=== PATIENT | male | born 1985 | race American Indian/Alaskan Native ===

== ENCOUNTER 2016-07-04 10:01 | Outpatient (CLI) | payer MEDICAID | END 2016-07-04 10:02 | disposition home or self-care (01) | LOC: WOUND 10:01 | PROVIDERS: ATTEND Internal Medicine | DX: L97.312 Non-pressure chronic ulcer of right ankle with fat layer exposed (principal); L97.322 Non-pressure chronic ulcer of left ankle with fat layer exposed; I74.3 Embolism and thrombosis of arteries of the lower extremities; K21.0 Gastro-esophageal reflux disease with esophagitis; G62.9 Polyneuropathy, unspecified | CPT/HCPCS: G0277 ×2; 99183 ==

== ENCOUNTER 2016-07-06 09:55 | Outpatient (CLI) | payer MEDICAID | END 2016-07-06 09:56 | disposition home or self-care (01) | LOC: WOUND 09:55 | PROVIDERS: ATTEND Orthopaedic Surgery | DX: I74.3 Embolism and thrombosis of arteries of the lower extremities (principal); L97.312 Non-pressure chronic ulcer of right ankle with fat layer exposed; L97.322 Non-pressure chronic ulcer of left ankle with fat layer exposed; K21.9 Gastro-esophageal reflux disease without esophagitis; G62.9 Polyneuropathy, unspecified | CPT/HCPCS: G0277 ×2; 99183 ==

== ENCOUNTER 2016-07-07 09:27 | Outpatient (CLI) | payer MEDICAID ==
[2016-07-07] MEDS ORDERED: XYLOCAINE TOPICAL 4% TP ONE ×2 (09:31→09:36)
== END 2016-07-07 09:28 | disposition home or self-care (01) ==
LOC: WOUND 09:27
PROVIDERS: ATTEND Internal Medicine
DX: L97.312 Non-pressure chronic ulcer of right ankle with fat layer exposed (principal); L97.322 Non-pressure chronic ulcer of left ankle with fat layer exposed; I74.3 Embolism and thrombosis of arteries of the lower extremities; K21.9 Gastro-esophageal reflux disease without esophagitis; D57.1 Sickle-cell disease without crisis; G62.9 Polyneuropathy, unspecified
CPT/HCPCS: 11042; G0277; 99183

== ENCOUNTER 2016-07-10 10:00 | Outpatient (CLI) | payer MEDICAID | END 2016-07-10 10:01 | disposition home or self-care (01) | LOC: WOUND 10:00 | PROVIDERS: ATTEND Orthopaedic Surgery | DX: L97.312 Non-pressure chronic ulcer of right ankle with fat layer exposed (principal); L97.322 Non-pressure chronic ulcer of left ankle with fat layer exposed; K21.9 Gastro-esophageal reflux disease without esophagitis; I74.3 Embolism and thrombosis of arteries of the lower extremities; G62.9 Polyneuropathy, unspecified; D57.1 Sickle-cell disease without crisis | CPT/HCPCS: G0277 ×2; 99183 ==

== ENCOUNTER 2016-07-27 10:03 | Outpatient (CLI) | payer MEDICAID | END 2016-07-27 10:04 | disposition home or self-care (01) | LOC: WOUND 10:03 | PROVIDERS: ATTEND Orthopaedic Surgery | DX: L97.312 Non-pressure chronic ulcer of right ankle with fat layer exposed (principal); L97.322 Non-pressure chronic ulcer of left ankle with fat layer exposed; I74.3 Embolism and thrombosis of arteries of the lower extremities; D57.1 Sickle-cell disease without crisis; K21.9 Gastro-esophageal reflux disease without esophagitis; G62.9 Polyneuropathy, unspecified | CPT/HCPCS: G0277 ×2; 99183 ==

== ENCOUNTER 2016-07-28 09:02 | Outpatient (CLI) | payer MEDICAID ==
[2016-07-28] MEDS ORDERED: XYLOCAINE TOPICAL 2% TP ONE ×2 (09:07→09:35)
== END 2016-07-28 09:03 | disposition home or self-care (01) ==
LOC: WOUND 09:02
PROVIDERS: ATTEND Podiatrist
DX: L97.312 Non-pressure chronic ulcer of right ankle with fat layer exposed (principal); L97.322 Non-pressure chronic ulcer of left ankle with fat layer exposed; I74.3 Embolism and thrombosis of arteries of the lower extremities; D57.1 Sickle-cell disease without crisis; K21.9 Gastro-esophageal reflux disease without esophagitis; G62.9 Polyneuropathy, unspecified
CPT/HCPCS: 11042; G0277; 99183

== ENCOUNTER 2016-07-31 10:36 | Outpatient (CLI) | payer MEDICAID | END 2016-07-31 10:37 | disposition home or self-care (01) | LOC: WOUND 10:36 | PROVIDERS: ATTEND Internal Medicine | DX: I74.3 Embolism and thrombosis of arteries of the lower extremities (principal); L97.312 Non-pressure chronic ulcer of right ankle with fat layer exposed; L97.322 Non-pressure chronic ulcer of left ankle with fat layer exposed; D57.1 Sickle-cell disease without crisis; K21.9 Gastro-esophageal reflux disease without esophagitis | CPT/HCPCS: G0277 ×2; 82962; 99183 ==

== ENCOUNTER 2016-08-01 10:22 | Outpatient (CLI) | payer MEDICAID | END 2016-08-01 10:23 | disposition home or self-care (01) | LOC: WOUND 10:22 | PROVIDERS: ATTEND Podiatrist | DX: I74.3 Embolism and thrombosis of arteries of the lower extremities (principal); L97.312 Non-pressure chronic ulcer of right ankle with fat layer exposed; L97.322 Non-pressure chronic ulcer of left ankle with fat layer exposed; D57.1 Sickle-cell disease without crisis; K21.9 Gastro-esophageal reflux disease without esophagitis; E11.40 Type 2 diabetes mellitus with diabetic neuropathy, unspecified | CPT/HCPCS: 82962; G0277; 99183 ==

== ENCOUNTER 2016-08-02 13:35 | Outpatient (CLI) | payer MEDICAID | END 2016-08-02 13:36 | disposition home or self-care (01) | LOC: WOUND 13:35 | PROVIDERS: ATTEND Internal Medicine | DX: I74.3 Embolism and thrombosis of arteries of the lower extremities (principal); L97.312 Non-pressure chronic ulcer of right ankle with fat layer exposed; L97.322 Non-pressure chronic ulcer of left ankle with fat layer exposed; D57.1 Sickle-cell disease without crisis; K21.9 Gastro-esophageal reflux disease without esophagitis; G62.9 Polyneuropathy, unspecified | CPT/HCPCS: G0277 ×2; 99183 ==

== ENCOUNTER 2016-08-03 13:45 | Outpatient (CLI) | payer MEDICAID | END 2016-08-03 13:46 | disposition home or self-care (01) | LOC: WOUND 13:45 | PROVIDERS: ATTEND Internal Medicine | DX: L97.311 Non-pressure chronic ulcer of right ankle limited to breakdown of skin (principal); L97.321 Non-pressure chronic ulcer of left ankle limited to breakdown of skin; I74.3 Embolism and thrombosis of arteries of the lower extremities; D57.1 Sickle-cell disease without crisis; T79 Certain early complications of trauma, not elsewhere classified; K21.9 Gastro-esophageal reflux disease without esophagitis | CPT/HCPCS: G0277 ×2; 99183 ==

== ENCOUNTER 2016-08-04 13:00 | Outpatient (CLI) | payer MEDICAID | END 2016-08-04 13:01 | disposition home or self-care (01) | LOC: WOUND 13:00 | PROVIDERS: ATTEND Podiatrist | DX: L97.311 Non-pressure chronic ulcer of right ankle limited to breakdown of skin (principal); L97.321 Non-pressure chronic ulcer of left ankle limited to breakdown of skin; I74.3 Embolism and thrombosis of arteries of the lower extremities; D57.1 Sickle-cell disease without crisis; K21.9 Gastro-esophageal reflux disease without esophagitis | CPT/HCPCS: G0277 ×2; 99183 ==

== ENCOUNTER 2016-08-10 13:00 | Outpatient (CLI) | payer MEDICAID | END 2016-08-10 13:01 | disposition home or self-care (01) | LOC: WOUND 13:00 | PROVIDERS: ATTEND Internal Medicine | DX: L97.312 Non-pressure chronic ulcer of right ankle with fat layer exposed (principal); L97.322 Non-pressure chronic ulcer of left ankle with fat layer exposed; I74.3 Embolism and thrombosis of arteries of the lower extremities; K21.9 Gastro-esophageal reflux disease without esophagitis; G62.9 Polyneuropathy, unspecified; D57.1 Sickle-cell disease without crisis | CPT/HCPCS: G0277 ×2; 99183 ==

== ENCOUNTER 2016-08-11 11:28 | Outpatient (CLI) | payer MEDICAID ==
[2016-08-11] MEDS ORDERED: XYLOCAINE TOPICAL 4% TP ONE ×2 (12:26→12:35)
== END 2016-08-11 11:29 | disposition home or self-care (01) ==
LOC: WOUND 11:28
PROVIDERS: ATTEND Podiatrist
DX: L97.312 Non-pressure chronic ulcer of right ankle with fat layer exposed (principal); L97.322 Non-pressure chronic ulcer of left ankle with fat layer exposed; I74.3 Embolism and thrombosis of arteries of the lower extremities; D57.1 Sickle-cell disease without crisis; K21.9 Gastro-esophageal reflux disease without esophagitis; G62.9 Polyneuropathy, unspecified
CPT/HCPCS: 11042; G0277; 99183

== ENCOUNTER 2016-08-14 13:20 | Outpatient (CLI) | payer MEDICAID | END 2016-08-14 13:21 | disposition home or self-care (01) | LOC: WOUND 13:20 | PROVIDERS: ATTEND Internal Medicine | DX: L97.312 Non-pressure chronic ulcer of right ankle with fat layer exposed (principal); L97.322 Non-pressure chronic ulcer of left ankle with fat layer exposed; I74.3 Embolism and thrombosis of arteries of the lower extremities; D57.1 Sickle-cell disease without crisis; K21.9 Gastro-esophageal reflux disease without esophagitis; G62.9 Polyneuropathy, unspecified | CPT/HCPCS: G0277 ×2; 99183 ==

== ENCOUNTER 2016-08-15 13:41 | Outpatient (CLI) | payer MEDICAID | END 2016-08-15 13:42 | disposition home or self-care (01) | LOC: WOUND 13:41 | PROVIDERS: ATTEND Internal Medicine | DX: L97.311 Non-pressure chronic ulcer of right ankle limited to breakdown of skin (principal); L97.321 Non-pressure chronic ulcer of left ankle limited to breakdown of skin; I74.3 Embolism and thrombosis of arteries of the lower extremities; D57.1 Sickle-cell disease without crisis; K21.9 Gastro-esophageal reflux disease without esophagitis | CPT/HCPCS: 82962; G0277; 99183 ==

== ENCOUNTER 2016-08-16 13:00 | Outpatient (CLI) | payer MEDICAID | END 2016-08-16 13:01 | disposition home or self-care (01) | LOC: WOUND 13:00 | PROVIDERS: ATTEND Internal Medicine | DX: L97.312 Non-pressure chronic ulcer of right ankle with fat layer exposed (principal); L97.322 Non-pressure chronic ulcer of left ankle with fat layer exposed; I74.3 Embolism and thrombosis of arteries of the lower extremities; D57.1 Sickle-cell disease without crisis; K21.9 Gastro-esophageal reflux disease without esophagitis; G62.9 Polyneuropathy, unspecified | CPT/HCPCS: G0277 ×2; 99183 ==

== ENCOUNTER 2016-08-17 12:30 | Outpatient (CLI) | payer MEDICAID | END 2016-08-17 12:31 | disposition home or self-care (01) | LOC: WOUND 12:30 | PROVIDERS: ATTEND Nurse Practitioner | DX: L97.312 Non-pressure chronic ulcer of right ankle with fat layer exposed (principal); L97.322 Non-pressure chronic ulcer of left ankle with fat layer exposed; I74.3 Embolism and thrombosis of arteries of the lower extremities; D57.1 Sickle-cell disease without crisis; K21.9 Gastro-esophageal reflux disease without esophagitis; G62.9 Polyneuropathy, unspecified | CPT/HCPCS: G0277 ×2; 99183 ==

== ENCOUNTER 2016-08-25 09:00 | Outpatient (CLI) | payer MEDICAID ==
[2016-08-25] MEDS ORDERED: NACL 0.9% 500 ML IR ONE (09:11)
[2016-08-25] MEDS ORDERED: XYLOCAINE TOPICAL 4% TP ONE ×2 (09:11→09:24)
== END 2016-08-25 09:01 | disposition home or self-care (01) ==
LOC: WOUND 09:00
PROVIDERS: ATTEND Podiatrist
DX: L97.311 Non-pressure chronic ulcer of right ankle limited to breakdown of skin (principal); L97.321 Non-pressure chronic ulcer of left ankle limited to breakdown of skin; I74.3 Embolism and thrombosis of arteries of the lower extremities; D57.1 Sickle-cell disease without crisis; K21.9 Gastro-esophageal reflux disease without esophagitis

== ENCOUNTER 2016-09-08 09:43 | Outpatient (CLI) | payer MEDICAID ==
[2016-09-08] MEDS ORDERED: XYLOCAINE TOPICAL 4% TP ONE ×2 (10:38→12:10)
[2016-09-08] MEDS ORDERED: XYLOCAINE TOPICAL 2% TP ONE (11:12)
== END 2016-09-08 09:44 | disposition home or self-care (01) ==
LOC: WOUND 09:43
PROVIDERS: ATTEND Podiatrist
DX: L97.312 Non-pressure chronic ulcer of right ankle with fat layer exposed (principal); L97.322 Non-pressure chronic ulcer of left ankle with fat layer exposed; I74.3 Embolism and thrombosis of arteries of the lower extremities; D57.1 Sickle-cell disease without crisis; K21.9 Gastro-esophageal reflux disease without esophagitis; R26.9 Unspecified abnormalities of gait and mobility

== ENCOUNTER 2016-09-15 10:09 | Outpatient (CLI) | payer MEDICAID ==
[2016-09-15] MEDS ORDERED: XYLOCAINE TOPICAL 4% TP ONE ×2 (10:25→10:51)
== END 2016-09-15 10:10 | disposition home or self-care (01) ==
LOC: WOUND 10:09
PROVIDERS: ATTEND Podiatrist
DX: L97.312 Non-pressure chronic ulcer of right ankle with fat layer exposed (principal); L97.322 Non-pressure chronic ulcer of left ankle with fat layer exposed; I74.3 Embolism and thrombosis of arteries of the lower extremities; D57.1 Sickle-cell disease without crisis; K21.9 Gastro-esophageal reflux disease without esophagitis; G62.9 Polyneuropathy, unspecified
CPT/HCPCS: 87075; 87116

== ENCOUNTER 2016-09-22 10:21 | Outpatient (CLI) | payer MEDICAID ==
[2016-09-22] MEDS ORDERED: XYLOCAINE TOPICAL 2% TP ONE (11:06)
[2016-09-22] MEDS ORDERED: XYLOCAINE TOPICAL 4% TP ONE ×2 (11:06→15:18)
[2016-09-22] MEDS ORDERED: SANTYL TP ONE ×2 (11:54→15:18)
[2016-09-22] MEDS ORDERED: XYLOCAINE MPF 2% INFILTRATI ONE (16:00)
== END 2016-09-22 10:22 | disposition home or self-care (01) ==
LOC: WOUND 10:21
PROVIDERS: ATTEND Podiatrist
DX: L97.312 Non-pressure chronic ulcer of right ankle with fat layer exposed (principal); L97.322 Non-pressure chronic ulcer of left ankle with fat layer exposed; I74.3 Embolism and thrombosis of arteries of the lower extremities; D57.1 Sickle-cell disease without crisis; K21.9 Gastro-esophageal reflux disease without esophagitis; G62.9 Polyneuropathy, unspecified

== ENCOUNTER 2016-09-29 10:49 | Outpatient (CLI) | payer MEDICAID ==
[2016-09-29] MEDS ORDERED: NACL 0.9% 500 ML IR ONE (11:14)
[2016-09-29] MEDS ORDERED: SANTYL TP ONE ×2 (11:55→14:40)
[2016-09-29] MEDS ORDERED: XYLOCAINE TOPICAL 2% TP ONE (14:40)
== END 2016-09-29 10:50 | disposition home or self-care (01) ==
LOC: WOUND 10:49
PROVIDERS: ATTEND Podiatrist
DX: L97.311 Non-pressure chronic ulcer of right ankle limited to breakdown of skin (principal); L97.321 Non-pressure chronic ulcer of left ankle limited to breakdown of skin; I74.3 Embolism and thrombosis of arteries of the lower extremities; D57.1 Sickle-cell disease without crisis; K21.9 Gastro-esophageal reflux disease without esophagitis

== ENCOUNTER 2016-10-06 10:15 | Outpatient (CLI) | payer MEDICAID ==
[2016-10-06] MEDS ORDERED: XYLOCAINE TOPICAL 2% TP ONE ×2 (10:59→11:15)
== END 2016-10-06 10:16 | disposition home or self-care (01) ==
LOC: WOUND 10:15
PROVIDERS: ATTEND Podiatrist
DX: L97.312 Non-pressure chronic ulcer of right ankle with fat layer exposed (principal); L97.322 Non-pressure chronic ulcer of left ankle with fat layer exposed; I74.3 Embolism and thrombosis of arteries of the lower extremities; D57.1 Sickle-cell disease without crisis; K21.9 Gastro-esophageal reflux disease without esophagitis; G62.9 Polyneuropathy, unspecified

== ENCOUNTER 2016-10-13 08:45 | Outpatient (CLI) | payer MEDICAID ==
[2016-10-13] MEDS ORDERED: XYLOCAINE TOPICAL 2% TP ONE ×2 (09:00→10:00)
[2016-10-13] MEDS ORDERED: NACL 0.9% 500 ML IR ONE (09:00)
[2016-10-13] MEDS ORDERED: XYLOCAINE TOPICAL 4% TP ONE ×2 (09:00→10:00)
== END 2016-10-13 08:46 | disposition home or self-care (01) ==
LOC: WOUND 08:45
PROVIDERS: ATTEND Podiatrist
DX: L97.312 Non-pressure chronic ulcer of right ankle with fat layer exposed (principal); L97.322 Non-pressure chronic ulcer of left ankle with fat layer exposed; I74.3 Embolism and thrombosis of arteries of the lower extremities; D57.1 Sickle-cell disease without crisis; K21.9 Gastro-esophageal reflux disease without esophagitis; G62.9 Polyneuropathy, unspecified

== ENCOUNTER 2016-10-20 09:06 | Outpatient (CLI) | payer MEDICAID ==
[2016-10-20] MEDS ORDERED: XYLOCAINE TOPICAL 4% TP ONE ×2 (09:07→10:00)
[2016-10-20] MEDS ORDERED: NACL 0.9% 500 ML IR ONE (09:10)
[2016-10-24] MEDS ORDERED: NACL 0.9% IR ONE (13:10)
== END 2016-10-20 09:07 | disposition home or self-care (01) ==
LOC: WOUND 09:06
PROVIDERS: ATTEND Podiatrist
DX: L97.311 Non-pressure chronic ulcer of right ankle limited to breakdown of skin (principal); L97.321 Non-pressure chronic ulcer of left ankle limited to breakdown of skin; I74.3 Embolism and thrombosis of arteries of the lower extremities; D57.1 Sickle-cell disease without crisis; K21.9 Gastro-esophageal reflux disease without esophagitis

== ENCOUNTER 2016-10-27 09:03 | Outpatient (CLI) | payer MEDICAID ==
[2016-10-27] MEDS ORDERED: XYLOCAINE TOPICAL 4% TP ONE ×2 (09:09→09:31)
[2016-10-27] MEDS ORDERED: NACL 0.9% 500 ML IR ONE (09:14)
[2016-10-27] MEDS ORDERED: NACL 0.9% IR PRN (09:32)
== END 2016-10-27 09:04 | disposition home or self-care (01) ==
LOC: WOUND 09:03
PROVIDERS: ATTEND Podiatrist
DX: L97.311 Non-pressure chronic ulcer of right ankle limited to breakdown of skin (principal); L97.321 Non-pressure chronic ulcer of left ankle limited to breakdown of skin; I74.3 Embolism and thrombosis of arteries of the lower extremities; D57.1 Sickle-cell disease without crisis; K21.9 Gastro-esophageal reflux disease without esophagitis

== ENCOUNTER 2016-11-10 13:36 | Outpatient (CLI) | payer MEDICAID ==
[2016-11-10] MEDS ORDERED: XYLOCAINE TOPICAL 2% TP ONE (13:50)
[2016-11-10] MEDS ORDERED: XYLOCAINE TOPICAL 4% TP ONE (14:00)
[2016-11-10] MEDS ORDERED: SANTYL TP ONE ×2 (14:40→17:06)
== END 2016-11-10 13:37 | disposition home or self-care (01) ==
LOC: WOUND 13:36
PROVIDERS: ATTEND Podiatrist
DX: L97.312 Non-pressure chronic ulcer of right ankle with fat layer exposed (principal); L97.322 Non-pressure chronic ulcer of left ankle with fat layer exposed; I74.3 Embolism and thrombosis of arteries of the lower extremities; D57.1 Sickle-cell disease without crisis; K21.9 Gastro-esophageal reflux disease without esophagitis; G62.9 Polyneuropathy, unspecified
CPT/HCPCS: 87075; 87116

== ENCOUNTER 2016-11-10 15:10 | Outpatient (CLI) | payer MEDICAID ==
--- NOTE | 2016-11-10 16:27 | XRay Report ---
Bilateral ankle. Next History: Ankle pain. Findings: Generalized osteopenia. Mild arthritic changes of the ankle joint. No acute fracture. Minimal periosteal reaction along the right medial malleolus and at the interosseous membrane. Minimal calcification along the periosteum of the distal left tibia fibula at interosseous membrane. No acute fracture. There is cortical irregularity noted at the left medial malleolus with a soft tissue defect in the adjacent distal leg and soft tissue swelling at the ankle. This may be related to cellulitis. Impression: Findings as detailed above. Clinical correlation is advised
== END 2016-11-10 15:11 | disposition home or self-care (01) ==
LOC: XRAY 15:10
PROVIDERS: ATTEND Podiatrist
DX: L97.529 Non-pressure chronic ulcer of other part of left foot with unspecified severity (principal); L97.519 Non-pressure chronic ulcer of other part of right foot with unspecified severity; M85.872 Other specified disorders of bone density and structure, left ankle and foot; M85.871 Other specified disorders of bone density and structure, right ankle and foot; M25.872 Other specified joint disorders, left ankle and foot; M25.871 Other specified joint disorders, right ankle and foot; M25.472 Effusion, left ankle; M25.471 Effusion, right ankle

== ENCOUNTER 2016-11-17 10:35 | Outpatient (CLI) | payer MEDICAID ==
[2016-11-17] MEDS ORDERED: XYLOCAINE TOPICAL 4% TP ONE ×2 (11:14→11:17)
[2016-11-17] MEDS ORDERED: NACL 0.9% IR ONE (11:14)
[2016-11-17] MEDS ORDERED: XYLOCAINE TOPICAL 2% TP ONE ×2 (11:14→11:17)
[2016-11-17] MEDS ORDERED: NACL 0.9% 500 ML IR ONE (11:17)
[2016-11-17] MEDS ORDERED: SANTYL TP ONE (11:54)
[2016-11-18] MEDS ORDERED: SANTYL TP SCH (10:00)
== END 2016-11-17 10:36 | disposition home or self-care (01) ==
LOC: WOUND 10:35
PROVIDERS: ATTEND Podiatrist
DX: L97.312 Non-pressure chronic ulcer of right ankle with fat layer exposed (principal); L97.322 Non-pressure chronic ulcer of left ankle with fat layer exposed; I74.3 Embolism and thrombosis of arteries of the lower extremities; D57.1 Sickle-cell disease without crisis; K21.9 Gastro-esophageal reflux disease without esophagitis; G62.9 Polyneuropathy, unspecified

== ENCOUNTER 2016-11-24 09:08 | Outpatient (CLI) | payer MEDICAID ==
[2016-11-24] MEDS ORDERED: XYLOCAINE TOPICAL 2% ONE (09:26)
[2016-11-24] MEDS ORDERED: XYLOCAINE TOPICAL 4% TP ONE ×2 (09:27→14:17)
[2016-11-24] MEDS ORDERED: SANTYL TP ONE ×2 (10:36→14:18)
[2016-11-24] MEDS ORDERED: XYLOCAINE TOPICAL 2% TP ONE (14:17)
== END 2016-11-24 09:09 | disposition home or self-care (01) ==
LOC: WOUND 09:08
PROVIDERS: ATTEND Podiatrist
DX: L97.312 Non-pressure chronic ulcer of right ankle with fat layer exposed (principal); L97.322 Non-pressure chronic ulcer of left ankle with fat layer exposed; I74.3 Embolism and thrombosis of arteries of the lower extremities; D57.1 Sickle-cell disease without crisis; K21.9 Gastro-esophageal reflux disease without esophagitis; G62.9 Polyneuropathy, unspecified

== ENCOUNTER 2016-12-01 10:01 | Outpatient (CLI) | payer MEDICAID ==
[2016-12-01] MEDS ORDERED: XYLOCAINE TOPICAL 4% TP ONE (10:23)
== END 2016-12-01 10:02 | disposition home or self-care (01) ==
LOC: WOUND 10:01
PROVIDERS: ATTEND Podiatrist
DX: L97.312 Non-pressure chronic ulcer of right ankle with fat layer exposed (principal); L97.322 Non-pressure chronic ulcer of left ankle with fat layer exposed; I74.3 Embolism and thrombosis of arteries of the lower extremities; D57.1 Sickle-cell disease without crisis; K21.9 Gastro-esophageal reflux disease without esophagitis; G62.9 Polyneuropathy, unspecified

== ENCOUNTER 2016-12-08 09:14 | Outpatient (CLI) | payer MEDICAID ==
[2016-12-08] MEDS ORDERED: XYLOCAINE TOPICAL 2% TP ONE (09:34)
[2016-12-08] MEDS ORDERED: XYLOCAINE TOPICAL 4% TP ONE (09:35)
[2016-12-08] MEDS ORDERED: XYLOCAINE TOPICAL 2% ONE (09:37)
[2016-12-08] MEDS ORDERED: NACL 0.9% IR PRN (15:48)
== END 2016-12-08 09:15 | disposition home or self-care (01) ==
LOC: WOUND 09:14
PROVIDERS: ATTEND Podiatrist
DX: L97.312 Non-pressure chronic ulcer of right ankle with fat layer exposed (principal); L97.322 Non-pressure chronic ulcer of left ankle with fat layer exposed; I74.3 Embolism and thrombosis of arteries of the lower extremities; D57.1 Sickle-cell disease without crisis; K21.9 Gastro-esophageal reflux disease without esophagitis; G62.9 Polyneuropathy, unspecified

== ENCOUNTER 2016-12-15 09:37 | Outpatient (CLI) | payer MEDICAID ==
[2016-12-15] MEDS ORDERED: XYLOCAINE TOPICAL 2% ONE (09:52)
[2016-12-15] MEDS ORDERED: XYLOCAINE TOPICAL 4% TP ONE (11:00)
[2016-12-15] MEDS ORDERED: XYLOCAINE TOPICAL 2% TP ONE (11:00)
== END 2016-12-15 09:38 | disposition home or self-care (01) ==
LOC: WOUND 09:37
PROVIDERS: ATTEND Podiatrist
DX: L97.312 Non-pressure chronic ulcer of right ankle with fat layer exposed (principal); L97.322 Non-pressure chronic ulcer of left ankle with fat layer exposed; I74.3 Embolism and thrombosis of arteries of the lower extremities; D57.1 Sickle-cell disease without crisis; K21.9 Gastro-esophageal reflux disease without esophagitis; G62.9 Polyneuropathy, unspecified

== ENCOUNTER 2017-01-05 10:10 | Outpatient (CLI) | payer MEDICAID ==
[2017-01-05] MEDS ORDERED: XYLOCAINE TOPICAL 2% TP ONE (10:32)
[2017-01-05] MEDS ORDERED: XYLOCAINE TOPICAL 4% TP ONE (10:32)
== END 2017-01-05 10:11 | disposition home or self-care (01) ==
LOC: WOUND 10:10
PROVIDERS: ATTEND Podiatrist
DX: L97.312 Non-pressure chronic ulcer of right ankle with fat layer exposed (principal); L97.322 Non-pressure chronic ulcer of left ankle with fat layer exposed; I74.3 Embolism and thrombosis of arteries of the lower extremities; D57.1 Sickle-cell disease without crisis; K21.9 Gastro-esophageal reflux disease without esophagitis; G62.9 Polyneuropathy, unspecified

== ENCOUNTER 2017-01-12 09:51 | Outpatient (CLI) | payer MEDICAID ==
[2017-01-12] MEDS ORDERED: XYLOCAINE TOPICAL 4% TP ONE ×2 (10:09→10:18)
[2017-01-12] MEDS ORDERED: XYLOCAINE TOPICAL 2% TP ONE ×2 (10:09→10:18)
== END 2017-01-12 09:52 | disposition home or self-care (01) ==
LOC: WOUND 09:51
PROVIDERS: ATTEND Podiatrist
DX: L97.312 Non-pressure chronic ulcer of right ankle with fat layer exposed (principal); L97.322 Non-pressure chronic ulcer of left ankle with fat layer exposed; I74.3 Embolism and thrombosis of arteries of the lower extremities; D57.1 Sickle-cell disease without crisis; K21.9 Gastro-esophageal reflux disease without esophagitis; G62.9 Polyneuropathy, unspecified

== ENCOUNTER 2017-01-19 10:31 | Outpatient (CLI) | payer MEDICAID ==
[2017-01-19] MEDS ORDERED: XYLOCAINE TOPICAL 2% TP ONE ×2 (10:56→11:31)
[2017-01-19] MEDS ORDERED: XYLOCAINE TOPICAL 4% TP ONE ×2 (10:56→11:31)
== END 2017-01-19 10:32 | disposition home or self-care (01) ==
LOC: WOUND 10:31
PROVIDERS: ATTEND Podiatrist
DX: L97.312 Non-pressure chronic ulcer of right ankle with fat layer exposed (principal); L97.322 Non-pressure chronic ulcer of left ankle with fat layer exposed; I74.3 Embolism and thrombosis of arteries of the lower extremities; D57.1 Sickle-cell disease without crisis; K21.9 Gastro-esophageal reflux disease without esophagitis; G62.9 Polyneuropathy, unspecified

== ENCOUNTER 2017-01-26 10:16 | Outpatient (CLI) | payer MEDICAID ==
[2017-01-26] MEDS ORDERED: XYLOCAINE TOPICAL 4% TP ONE (10:37)
[2017-01-26] MEDS ORDERED: XYLOCAINE TOPICAL 2% TP ONE (10:37)
[2017-01-26] MEDS ORDERED: XYLOCAINE TOPICAL 2% ONE (10:40)
== END 2017-01-26 10:17 | disposition home or self-care (01) ==
LOC: WOUND 10:16
PROVIDERS: ATTEND Podiatrist
DX: L97.312 Non-pressure chronic ulcer of right ankle with fat layer exposed (principal); L97.322 Non-pressure chronic ulcer of left ankle with fat layer exposed; I74.3 Embolism and thrombosis of arteries of the lower extremities; D57.1 Sickle-cell disease without crisis; K21.9 Gastro-esophageal reflux disease without esophagitis; R26.9 Unspecified abnormalities of gait and mobility; G62.9 Polyneuropathy, unspecified

== ENCOUNTER 2017-02-02 09:46 | Outpatient (CLI) | payer MEDICAID ==
[2017-02-02] MEDS ORDERED: XYLOCAINE TOPICAL 2% TP ONE ×2 (09:47→09:55)
[2017-02-02] MEDS ORDERED: XYLOCAINE TOPICAL 4% TP ONE ×2 (09:47→09:55)
[2017-02-02] MEDS ORDERED: NACL 0.9% IR PRN (09:54)
== END 2017-02-02 09:47 | disposition home or self-care (01) ==
LOC: WOUND 09:46
PROVIDERS: ATTEND Podiatrist
DX: L97.312 Non-pressure chronic ulcer of right ankle with fat layer exposed (principal); L97.322 Non-pressure chronic ulcer of left ankle with fat layer exposed; I74.3 Embolism and thrombosis of arteries of the lower extremities; D57.1 Sickle-cell disease without crisis; R26.9 Unspecified abnormalities of gait and mobility; K21.9 Gastro-esophageal reflux disease without esophagitis; G62.9 Polyneuropathy, unspecified

== ENCOUNTER 2017-02-06 11:28 | Outpatient (CLI) | payer MEDICAID | END 2017-02-06 11:29 | disposition home or self-care (01) | LOC: WOUND 11:28 | PROVIDERS: ATTEND Surgery | DX: L97.312 Non-pressure chronic ulcer of right ankle with fat layer exposed (principal); L97.322 Non-pressure chronic ulcer of left ankle with fat layer exposed; I74.3 Embolism and thrombosis of arteries of the lower extremities; D57.1 Sickle-cell disease without crisis; K21.9 Gastro-esophageal reflux disease without esophagitis; G62.9 Polyneuropathy, unspecified | CPT/HCPCS: 29581 ==

== ENCOUNTER 2017-02-09 10:11 | Outpatient (CLI) | payer MEDICAID ==
[2017-02-09] MEDS ORDERED: XYLOCAINE TOPICAL 4% TP ONE (10:56)
[2017-02-09] MEDS ORDERED: XYLOCAINE TOPICAL 2% TP ONE (10:56)
== END 2017-02-09 10:12 | disposition home or self-care (01) ==
LOC: WOUND 10:11
PROVIDERS: ATTEND Podiatrist
DX: L97.312 Non-pressure chronic ulcer of right ankle with fat layer exposed (principal); L97.322 Non-pressure chronic ulcer of left ankle with fat layer exposed; I74.3 Embolism and thrombosis of arteries of the lower extremities; D57.1 Sickle-cell disease without crisis; K21.9 Gastro-esophageal reflux disease without esophagitis; G62.9 Polyneuropathy, unspecified
CPT/HCPCS: 99213; G0463

== ENCOUNTER 2017-02-23 10:06 | Outpatient (CLI) | payer MEDICAID ==
[2017-02-23] MEDS ORDERED: XYLOCAINE TOPICAL 2% TP ONE (10:36)
[2017-02-23] MEDS ORDERED: XYLOCAINE TOPICAL 4% TP ONE (11:00)
== END 2017-02-23 10:07 | disposition home or self-care (01) ==
LOC: WOUND 10:06
PROVIDERS: ATTEND Podiatrist
DX: L97.312 Non-pressure chronic ulcer of right ankle with fat layer exposed (principal); L97.322 Non-pressure chronic ulcer of left ankle with fat layer exposed; I74.3 Embolism and thrombosis of arteries of the lower extremities; D57.1 Sickle-cell disease without crisis; K21.9 Gastro-esophageal reflux disease without esophagitis; R26.9 Unspecified abnormalities of gait and mobility; G62.9 Polyneuropathy, unspecified

== ENCOUNTER 2017-03-09 10:20 | Outpatient (CLI) | payer MEDICAID ==
[2017-03-09] MEDS ORDERED: XYLOCAINE TOPICAL 4% TP ONE ×2 (10:59→11:07)
[2017-03-09] MEDS ORDERED: XYLOCAINE TOPICAL 2% TP ONE ×2 (10:59→11:07)
== END 2017-03-09 10:21 | disposition home or self-care (01) ==
LOC: WOUND 10:20
PROVIDERS: ATTEND Podiatrist
DX: L97.312 Non-pressure chronic ulcer of right ankle with fat layer exposed (principal); L97.322 Non-pressure chronic ulcer of left ankle with fat layer exposed; I74.3 Embolism and thrombosis of arteries of the lower extremities; D57.1 Sickle-cell disease without crisis; K21.9 Gastro-esophageal reflux disease without esophagitis; G62.9 Polyneuropathy, unspecified

== ENCOUNTER 2017-03-16 09:44 | Outpatient (CLI) | payer MEDICAID ==
[2017-03-16] MEDS ORDERED: XYLOCAINE TOPICAL 4% TP ONE ×2 (10:36→11:10)
[2017-03-16] MEDS ORDERED: XYLOCAINE TOPICAL 2% TP ONE (10:36)
== END 2017-03-16 09:45 | disposition home or self-care (01) ==
LOC: WOUND 09:44
PROVIDERS: ATTEND Podiatrist
DX: L97.312 Non-pressure chronic ulcer of right ankle with fat layer exposed (principal); L97.322 Non-pressure chronic ulcer of left ankle with fat layer exposed; I74.3 Embolism and thrombosis of arteries of the lower extremities; D57.1 Sickle-cell disease without crisis; K21.9 Gastro-esophageal reflux disease without esophagitis

== ENCOUNTER 2017-03-20 13:29 | Outpatient (CLI) | payer MEDICAID ==
[2017-03-20] MEDS ORDERED: NACL 0.9% IR ONE (14:20)
[2017-03-20] MEDS ORDERED: D5NS 0.2% 1,000 ML IV SCH (15:00)
== END 2017-03-20 13:30 | disposition home or self-care (01) ==
LOC: WOUND 13:29
PROVIDERS: ATTEND Surgery
DX: L97.322 Non-pressure chronic ulcer of left ankle with fat layer exposed (principal); L97.312 Non-pressure chronic ulcer of right ankle with fat layer exposed; I74.3 Embolism and thrombosis of arteries of the lower extremities; D57.1 Sickle-cell disease without crisis; K21.9 Gastro-esophageal reflux disease without esophagitis; G62.9 Polyneuropathy, unspecified
CPT/HCPCS: 29581

== ENCOUNTER 2017-03-23 10:01 | Outpatient (CLI) | payer MEDICAID ==
[2017-03-23] MEDS ORDERED: XYLOCAINE TOPICAL 4% TP ONE ×2 (10:24→10:30)
[2017-03-23] MEDS ORDERED: NACL 0.9% 500 ML IR ONE (10:24)
[2017-03-23] MEDS ORDERED: NACL 0.9% IR ONE (10:30)
== END 2017-03-23 10:02 | disposition home or self-care (01) ==
LOC: WOUND 10:01
PROVIDERS: ATTEND Podiatrist
DX: L97.312 Non-pressure chronic ulcer of right ankle with fat layer exposed (principal); L97.322 Non-pressure chronic ulcer of left ankle with fat layer exposed; I74.3 Embolism and thrombosis of arteries of the lower extremities; D57.1 Sickle-cell disease without crisis; K21.9 Gastro-esophageal reflux disease without esophagitis; G62.9 Polyneuropathy, unspecified

== ENCOUNTER 2017-03-30 10:10 | Outpatient (CLI) | payer MEDICAID ==
[2017-03-30] MEDS ORDERED: NACL 0.9% IR PRN (10:17)
[2017-03-30] MEDS ORDERED: XYLOCAINE TOPICAL 4% TP ONE (10:17)
[2017-03-30] MEDS ORDERED: XYLOCAINE TOPICAL 2% TP ONE (10:18)
== END 2017-03-30 10:11 | disposition home or self-care (01) ==
LOC: WOUND 10:10
PROVIDERS: ATTEND Podiatrist
DX: L97.312 Non-pressure chronic ulcer of right ankle with fat layer exposed (principal); L97.322 Non-pressure chronic ulcer of left ankle with fat layer exposed; I74.3 Embolism and thrombosis of arteries of the lower extremities; D57.1 Sickle-cell disease without crisis; R26.9 Unspecified abnormalities of gait and mobility; K21.9 Gastro-esophageal reflux disease without esophagitis; G62.9 Polyneuropathy, unspecified

== ENCOUNTER 2017-04-03 13:40 | Outpatient (CLI) | payer MEDICAID ==
[2017-04-03] MEDS ORDERED: XYLOCAINE TOPICAL 4% TP ONE (13:51)
== END 2017-04-03 13:41 | disposition home or self-care (01) ==
LOC: WOUND 13:40
PROVIDERS: ATTEND Surgery
DX: L97.312 Non-pressure chronic ulcer of right ankle with fat layer exposed (principal); L97.322 Non-pressure chronic ulcer of left ankle with fat layer exposed; I74.3 Embolism and thrombosis of arteries of the lower extremities; D57.1 Sickle-cell disease without crisis; K21.9 Gastro-esophageal reflux disease without esophagitis; G62.9 Polyneuropathy, unspecified
CPT/HCPCS: 29581

== ENCOUNTER 2017-04-06 09:38 | Outpatient (CLI) | payer MEDICAID ==
[2017-04-06] MEDS ORDERED: XYLOCAINE TOPICAL 4% TP ONE ×3 (09:47→10:10)
== END 2017-04-06 09:39 | disposition home or self-care (01) ==
LOC: WOUND 09:38
PROVIDERS: ATTEND Podiatrist
DX: L97.312 Non-pressure chronic ulcer of right ankle with fat layer exposed (principal); L97.322 Non-pressure chronic ulcer of left ankle with fat layer exposed; I74.3 Embolism and thrombosis of arteries of the lower extremities; D57.1 Sickle-cell disease without crisis; K21.9 Gastro-esophageal reflux disease without esophagitis; G62.9 Polyneuropathy, unspecified

== ENCOUNTER 2017-04-10 13:25 | Outpatient (CLI) | payer MEDICAID | END 2017-04-10 13:26 | disposition home or self-care (01) | LOC: WOUND 13:25 | PROVIDERS: ATTEND Surgery | DX: L97.312 Non-pressure chronic ulcer of right ankle with fat layer exposed (principal); L97.322 Non-pressure chronic ulcer of left ankle with fat layer exposed; I74.3 Embolism and thrombosis of arteries of the lower extremities; D57.1 Sickle-cell disease without crisis; K21.9 Gastro-esophageal reflux disease without esophagitis; G62.9 Polyneuropathy, unspecified | CPT/HCPCS: 29581 ==

== ENCOUNTER 2017-04-13 09:55 | Outpatient (CLI) | payer MEDICAID ==
[2017-04-13] MEDS ORDERED: XYLOCAINE TOPICAL 4% TP ONE (10:38)
[2017-04-13] MEDS ORDERED: XYLOCAINE TOPICAL 2% TP ONE (10:38)
== END 2017-04-13 09:56 | disposition home or self-care (01) ==
LOC: WOUND 09:55
PROVIDERS: ATTEND Podiatrist
DX: L97.312 Non-pressure chronic ulcer of right ankle with fat layer exposed (principal); L97.322 Non-pressure chronic ulcer of left ankle with fat layer exposed; I74.3 Embolism and thrombosis of arteries of the lower extremities; D57.1 Sickle-cell disease without crisis; K21.9 Gastro-esophageal reflux disease without esophagitis; G62.9 Polyneuropathy, unspecified

== ENCOUNTER 2017-04-17 14:04 | Outpatient (CLI) | payer MEDICAID ==
[2017-04-17] MEDS ORDERED: XYLOCAINE TOPICAL 4% TP ONE ×2 (14:17→14:24)
== END 2017-04-17 14:05 | disposition home or self-care (01) ==
LOC: WOUND 14:04
PROVIDERS: ATTEND Surgery
DX: L97.312 Non-pressure chronic ulcer of right ankle with fat layer exposed (principal); L97.322 Non-pressure chronic ulcer of left ankle with fat layer exposed; I74.3 Embolism and thrombosis of arteries of the lower extremities; D57.1 Sickle-cell disease without crisis; K21.9 Gastro-esophageal reflux disease without esophagitis
CPT/HCPCS: 29581

== ENCOUNTER 2017-04-20 10:48 | Outpatient (CLI) | payer MEDICAID ==
[~2017-04-20 10:48] MED LIST: XYLOCAINE TOPICAL 2% TP ONE; XYLOCAINE TOPICAL 4% TP ONE
[2017-04-20] MEDS ORDERED: XYLOCAINE TOPICAL 4% TP ONE (10:54)
[2017-04-20] MEDS ORDERED: XYLOCAINE TOPICAL 2% TP ONE (10:54)
== END 2017-04-20 10:49 | disposition home or self-care (01) ==
LOC: WOUND 10:48
PROVIDERS: ATTEND Podiatrist
DX: L97.312 Non-pressure chronic ulcer of right ankle with fat layer exposed (principal); L97.322 Non-pressure chronic ulcer of left ankle with fat layer exposed; I74.3 Embolism and thrombosis of arteries of the lower extremities; D57.1 Sickle-cell disease without crisis; K21.9 Gastro-esophageal reflux disease without esophagitis; G62.9 Polyneuropathy, unspecified

== ENCOUNTER 2017-04-27 09:54 | Outpatient (CLI) | payer MEDICAID ==
[2017-04-27] MEDS ORDERED: XYLOCAINE TOPICAL 2% TP ONE (10:25)
[2017-04-27] MEDS ORDERED: XYLOCAINE TOPICAL 4% TP ONE (10:26)
== END 2017-04-27 09:55 | disposition home or self-care (01) ==
LOC: WOUND 09:54
PROVIDERS: ATTEND Podiatrist
DX: L97.312 Non-pressure chronic ulcer of right ankle with fat layer exposed (principal); L97.322 Non-pressure chronic ulcer of left ankle with fat layer exposed; I74.3 Embolism and thrombosis of arteries of the lower extremities; D57.1 Sickle-cell disease without crisis; K21.9 Gastro-esophageal reflux disease without esophagitis; G62.9 Polyneuropathy, unspecified

== ENCOUNTER 2017-05-11 10:12 | Outpatient (CLI) | payer MEDICAID ==
[2017-05-11] MEDS ORDERED: XYLOCAINE TOPICAL 4% TP ONE (10:45)
== END 2017-05-11 10:13 | disposition home or self-care (01) ==
LOC: WOUND 10:12
PROVIDERS: ATTEND Podiatrist
DX: L97.312 Non-pressure chronic ulcer of right ankle with fat layer exposed (principal); L97.322 Non-pressure chronic ulcer of left ankle with fat layer exposed; D57.1 Sickle-cell disease without crisis; K21.9 Gastro-esophageal reflux disease without esophagitis; G62.9 Polyneuropathy, unspecified

== ENCOUNTER 2017-05-18 10:37 | Outpatient (CLI) | payer MEDICAID ==
[2017-05-18] MEDS ORDERED: XYLOCAINE TOPICAL 4% TP ONE (10:51)
[2017-05-18] MEDS ORDERED: XYLOCAINE TOPICAL 2% TP ONE (10:51)
== END 2017-05-18 10:38 | disposition home or self-care (01) ==
LOC: WOUND 10:37
PROVIDERS: ATTEND Podiatrist
DX: L97.312 Non-pressure chronic ulcer of right ankle with fat layer exposed (principal); L97.322 Non-pressure chronic ulcer of left ankle with fat layer exposed; I74.3 Embolism and thrombosis of arteries of the lower extremities; D57.1 Sickle-cell disease without crisis; K21.9 Gastro-esophageal reflux disease without esophagitis; G62.9 Polyneuropathy, unspecified

== ENCOUNTER 2017-06-01 10:16 | Outpatient (CLI) | payer MEDICAID ==
[2017-06-01] MEDS ORDERED: XYLOCAINE TOPICAL 4% TP ONE (10:32)
[2017-06-01] MEDS ORDERED: XYLOCAINE TOPICAL 2% 30ML TP ONE (10:33)
[2017-06-01] MEDS ORDERED: XYLOCAINE TOPICAL 2% 5ML ONE (10:38)
== END 2017-06-01 10:17 | disposition home or self-care (01) ==
LOC: WOUND 10:16
PROVIDERS: ATTEND Podiatrist
DX: L97.322 Non-pressure chronic ulcer of left ankle with fat layer exposed (principal); L97.312 Non-pressure chronic ulcer of right ankle with fat layer exposed; I74.3 Embolism and thrombosis of arteries of the lower extremities; D57.1 Sickle-cell disease without crisis; K21.9 Gastro-esophageal reflux disease without esophagitis; G62.9 Polyneuropathy, unspecified; Z90.49 Acquired absence of other specified parts of digestive tract

== ENCOUNTER 2017-06-22 08:23 | Outpatient (CLI) | payer MEDICAID ==
[2017-06-22] MEDS ORDERED: XYLOCAINE TOPICAL 4% TP ONE ×2 (09:17→10:15)
== END 2017-06-22 08:24 | disposition home or self-care (01) ==
LOC: WOUND 08:23
PROVIDERS: ATTEND Podiatrist
DX: L97.312 Non-pressure chronic ulcer of right ankle with fat layer exposed (principal); L97.322 Non-pressure chronic ulcer of left ankle with fat layer exposed; I74.3 Embolism and thrombosis of arteries of the lower extremities; D57.1 Sickle-cell disease without crisis; K21.9 Gastro-esophageal reflux disease without esophagitis; G62.9 Polyneuropathy, unspecified; Z90.49 Acquired absence of other specified parts of digestive tract

== ENCOUNTER 2017-07-06 10:19 | Outpatient (CLI) | payer MEDICAID ==
[2017-07-06] MEDS ORDERED: XYLOCAINE TOPICAL 4% TP ONE (10:58)
[2017-07-10] MEDS ORDERED: XYLOCAINE TOPICAL 4% TP ONE (13:04)
== END 2017-07-06 10:20 | disposition home or self-care (01) ==
LOC: WOUND 10:19
PROVIDERS: ATTEND Podiatrist
DX: L97.312 Non-pressure chronic ulcer of right ankle with fat layer exposed (principal); L97.322 Non-pressure chronic ulcer of left ankle with fat layer exposed; I74.3 Embolism and thrombosis of arteries of the lower extremities; K21.9 Gastro-esophageal reflux disease without esophagitis; G62.9 Polyneuropathy, unspecified; Z90.49 Acquired absence of other specified parts of digestive tract
CPT/HCPCS: 29581

== ENCOUNTER 2017-07-13 10:15 | Outpatient (CLI) | payer MEDICAID ==
[2017-07-13] MEDS ORDERED: XYLOCAINE TOPICAL 4% TP ONE (10:55)
== END 2017-07-13 10:16 | disposition home or self-care (01) ==
LOC: WOUND 10:15
PROVIDERS: ATTEND Podiatrist
DX: L97.312 Non-pressure chronic ulcer of right ankle with fat layer exposed (principal); L97.322 Non-pressure chronic ulcer of left ankle with fat layer exposed; I74.3 Embolism and thrombosis of arteries of the lower extremities; D57.1 Sickle-cell disease without crisis; K21.9 Gastro-esophageal reflux disease without esophagitis; G62.9 Polyneuropathy, unspecified; Z90.49 Acquired absence of other specified parts of digestive tract

== ENCOUNTER 2017-07-20 10:18 | Outpatient (CLI) | payer MEDICAID ==
[~2017-07-20 10:18] MED LIST changes: -XYLOCAINE TOPICAL 2% TP ONE
[2017-07-20] MEDS ORDERED: XYLOCAINE TOPICAL 4% TP ONE (10:52)
== END 2017-07-20 10:19 | disposition home or self-care (01) ==
LOC: WOUND 10:18
PROVIDERS: ATTEND Podiatrist
DX: L97.312 Non-pressure chronic ulcer of right ankle with fat layer exposed (principal); L97.322 Non-pressure chronic ulcer of left ankle with fat layer exposed; I74.3 Embolism and thrombosis of arteries of the lower extremities; D57.1 Sickle-cell disease without crisis; K21.9 Gastro-esophageal reflux disease without esophagitis; G62.9 Polyneuropathy, unspecified

== ENCOUNTER 2017-07-27 10:08 | Outpatient (CLI) | payer MEDICAID ==
[2017-07-27] MEDS ORDERED: XYLOCAINE TOPICAL 4% TP ONE (10:19)
[2017-07-27] MEDS ORDERED: AD OINTMENT TP ONE (11:20)
[2017-07-27] MEDS ORDERED: AD OINTMENT TP SCH (12:00)
== END 2017-07-27 10:09 | disposition home or self-care (01) ==
LOC: WOUND 10:08
PROVIDERS: ATTEND Podiatrist
DX: L97.312 Non-pressure chronic ulcer of right ankle with fat layer exposed (principal); L97.322 Non-pressure chronic ulcer of left ankle with fat layer exposed; I74.3 Embolism and thrombosis of arteries of the lower extremities; D57.1 Sickle-cell disease without crisis; K21.9 Gastro-esophageal reflux disease without esophagitis
CPT/HCPCS: A6250

== ENCOUNTER 2017-08-03 10:12 | Outpatient (CLI) | payer MEDICAID ==
[2017-08-03] MEDS ORDERED: XYLOCAINE TOPICAL 4% TP ONE (10:43)
== END 2017-08-03 10:13 | disposition home or self-care (01) ==
LOC: WOUND 10:12
PROVIDERS: ATTEND Internal Medicine
DX: L97.312 Non-pressure chronic ulcer of right ankle with fat layer exposed (principal); L97.322 Non-pressure chronic ulcer of left ankle with fat layer exposed; I74.3 Embolism and thrombosis of arteries of the lower extremities; K21.9 Gastro-esophageal reflux disease without esophagitis; G62.9 Polyneuropathy, unspecified; Z90.49 Acquired absence of other specified parts of digestive tract

== ENCOUNTER 2017-08-10 09:49 | Outpatient (CLI) | payer MEDICAID ==
[2017-08-10] MEDS ORDERED: XYLOCAINE TOPICAL 4% TP ONE ×2 (10:33→10:35)
== END 2017-08-10 09:50 | disposition home or self-care (01) ==
LOC: WOUND 09:49
PROVIDERS: ATTEND Podiatrist
DX: L97.312 Non-pressure chronic ulcer of right ankle with fat layer exposed (principal); L97.322 Non-pressure chronic ulcer of left ankle with fat layer exposed; I74.3 Embolism and thrombosis of arteries of the lower extremities; D57.1 Sickle-cell disease without crisis; K21.9 Gastro-esophageal reflux disease without esophagitis; G62.9 Polyneuropathy, unspecified
CPT/HCPCS: 29581

== ENCOUNTER 2017-08-17 10:16 | Outpatient (CLI) | payer MEDICAID ==
[2017-08-17] MEDS ORDERED: XYLOCAINE TOPICAL 4% TP ONE ×2 (10:49→10:53)
== END 2017-08-17 10:17 | disposition home or self-care (01) ==
LOC: WOUND 10:16
PROVIDERS: ATTEND Podiatrist
DX: L97.312 Non-pressure chronic ulcer of right ankle with fat layer exposed (principal); L97.322 Non-pressure chronic ulcer of left ankle with fat layer exposed; D57.1 Sickle-cell disease without crisis; I74.3 Embolism and thrombosis of arteries of the lower extremities; K21.9 Gastro-esophageal reflux disease without esophagitis; G62.9 Polyneuropathy, unspecified
CPT/HCPCS: 29581

== ENCOUNTER 2017-08-24 10:08 | Outpatient (CLI) | payer MEDICAID ==
[2017-08-24] MEDS ORDERED: XYLOCAINE TOPICAL 4% TP ONE ×2 (10:18→10:20)
== END 2017-08-24 10:09 | disposition home or self-care (01) ==
LOC: WOUND 10:08
PROVIDERS: ATTEND Podiatrist
DX: L97.312 Non-pressure chronic ulcer of right ankle with fat layer exposed (principal); L97.322 Non-pressure chronic ulcer of left ankle with fat layer exposed; D57.1 Sickle-cell disease without crisis; I74.3 Embolism and thrombosis of arteries of the lower extremities; K21.9 Gastro-esophageal reflux disease without esophagitis; G62.9 Polyneuropathy, unspecified
CPT/HCPCS: 29581

== ENCOUNTER 2017-08-31 10:06 | Outpatient (CLI) | payer MEDICAID ==
[2017-08-31] MEDS ORDERED: XYLOCAINE TOPICAL 4% TP ONE (10:37)
== END 2017-08-31 10:07 | disposition home or self-care (01) ==
LOC: WOUND 10:06
PROVIDERS: ATTEND Podiatrist
DX: L97.312 Non-pressure chronic ulcer of right ankle with fat layer exposed (principal); L97.322 Non-pressure chronic ulcer of left ankle with fat layer exposed; D57.1 Sickle-cell disease without crisis; I74.3 Embolism and thrombosis of arteries of the lower extremities; K21.9 Gastro-esophageal reflux disease without esophagitis
CPT/HCPCS: 29581

== ENCOUNTER 2017-09-07 10:22 | Outpatient (CLI) | payer MEDICAID ==
[2017-09-07] MEDS ORDERED: NACL 0.9% IR PRN (10:30)
[2017-09-07] MEDS ORDERED: XYLOCAINE TOPICAL 4% TP ONE (10:30)
[2017-09-07] MEDS ORDERED: AD OINTMENT TP ONE (11:00)
[2017-09-08] MEDS ORDERED: AD OINTMENT TP SCH (10:00)
== END 2017-09-07 10:23 | disposition home or self-care (01) ==
LOC: WOUND 10:22
PROVIDERS: ATTEND Podiatrist
DX: L97.312 Non-pressure chronic ulcer of right ankle with fat layer exposed (principal); L97.322 Non-pressure chronic ulcer of left ankle with fat layer exposed; D57.1 Sickle-cell disease without crisis; I74.3 Embolism and thrombosis of arteries of the lower extremities; K21.9 Gastro-esophageal reflux disease without esophagitis; G62.9 Polyneuropathy, unspecified
CPT/HCPCS: 29581; A6250

== ENCOUNTER 2017-09-14 10:18 | Outpatient (CLI) | payer MEDICAID ==
[2017-09-14] MEDS ORDERED: XYLOCAINE TOPICAL 4% TP ONE (10:44)
== END 2017-09-14 10:19 | disposition home or self-care (01) ==
LOC: WOUND 10:18
PROVIDERS: ATTEND Podiatrist
DX: L97.312 Non-pressure chronic ulcer of right ankle with fat layer exposed (principal); L97.322 Non-pressure chronic ulcer of left ankle with fat layer exposed; D57.1 Sickle-cell disease without crisis; I74.3 Embolism and thrombosis of arteries of the lower extremities; K21.9 Gastro-esophageal reflux disease without esophagitis; G62.9 Polyneuropathy, unspecified
CPT/HCPCS: 29581

== ENCOUNTER 2017-09-21 10:25 | Outpatient (CLI) | payer MEDICAID ==
[2017-09-21] MEDS ORDERED: XYLOCAINE TOPICAL 4% TP ONE ×2 (10:44→10:58)
== END 2017-09-21 10:26 | disposition home or self-care (01) ==
LOC: WOUND 10:25
PROVIDERS: ATTEND Podiatrist
DX: L97.312 Non-pressure chronic ulcer of right ankle with fat layer exposed (principal); L97.322 Non-pressure chronic ulcer of left ankle with fat layer exposed; D57.1 Sickle-cell disease without crisis; I74.3 Embolism and thrombosis of arteries of the lower extremities; K21.9 Gastro-esophageal reflux disease without esophagitis; G62.9 Polyneuropathy, unspecified
CPT/HCPCS: 29581

== ENCOUNTER 2017-09-28 10:21 | Outpatient (CLI) | payer MEDICAID ==
[2017-09-28] MEDS ORDERED: XYLOCAINE TOPICAL 4% TP ONE ×2 (10:53→10:54)
== END 2017-09-28 10:22 | disposition home or self-care (01) ==
LOC: WOUND 10:21
PROVIDERS: ATTEND Podiatrist
DX: L97.312 Non-pressure chronic ulcer of right ankle with fat layer exposed (principal); L97.322 Non-pressure chronic ulcer of left ankle with fat layer exposed; D57.1 Sickle-cell disease without crisis; I74.3 Embolism and thrombosis of arteries of the lower extremities; K21.9 Gastro-esophageal reflux disease without esophagitis; G62.9 Polyneuropathy, unspecified
CPT/HCPCS: 29581

== ENCOUNTER 2017-10-05 10:19 | Outpatient (CLI) | payer MEDICAID ==
[2017-10-05] MEDS ORDERED: XYLOCAINE TOPICAL 4% TP ONE (11:03)
[2017-10-06] MEDS ORDERED: AD OINTMENT TP SCH (10:00)
== END 2017-10-05 10:20 | disposition home or self-care (01) ==
LOC: WOUND 10:19
PROVIDERS: ATTEND Podiatrist
DX: L97.312 Non-pressure chronic ulcer of right ankle with fat layer exposed (principal); L97.322 Non-pressure chronic ulcer of left ankle with fat layer exposed; D57.1 Sickle-cell disease without crisis; I74.3 Embolism and thrombosis of arteries of the lower extremities; K21.9 Gastro-esophageal reflux disease without esophagitis; G62.9 Polyneuropathy, unspecified; Z90.49 Acquired absence of other specified parts of digestive tract
CPT/HCPCS: 29581

== ENCOUNTER 2017-10-12 10:21 | Outpatient (CLI) | payer MEDICAID ==
[2017-10-12] MEDS ORDERED: XYLOCAINE TOPICAL 4% TP ONE ×2 (10:56)
== END 2017-10-12 10:22 | disposition home or self-care (01) ==
LOC: WOUND 10:21
PROVIDERS: ATTEND Podiatrist
DX: L97.312 Non-pressure chronic ulcer of right ankle with fat layer exposed (principal); L97.322 Non-pressure chronic ulcer of left ankle with fat layer exposed; D57.1 Sickle-cell disease without crisis; I74.3 Embolism and thrombosis of arteries of the lower extremities; K21.9 Gastro-esophageal reflux disease without esophagitis; G62.9 Polyneuropathy, unspecified; Z90.49 Acquired absence of other specified parts of digestive tract
CPT/HCPCS: 29581

== ENCOUNTER 2017-10-19 10:22 | Outpatient (CLI) | payer MEDICAID ==
[2017-10-19] MEDS ORDERED: XYLOCAINE TOPICAL 4% TP ONE (11:14)
== END 2017-10-19 10:23 | disposition home or self-care (01) ==
LOC: WOUND 10:22
PROVIDERS: ATTEND Podiatrist
DX: L97.312 Non-pressure chronic ulcer of right ankle with fat layer exposed (principal); L97.322 Non-pressure chronic ulcer of left ankle with fat layer exposed; D57.1 Sickle-cell disease without crisis; I74.3 Embolism and thrombosis of arteries of the lower extremities; K21.9 Gastro-esophageal reflux disease without esophagitis; G62.9 Polyneuropathy, unspecified
CPT/HCPCS: 29581

== ENCOUNTER 2017-11-02 10:09 | Outpatient (CLI) | payer MEDICAID ==
[2017-11-02] MEDS ORDERED: XYLOCAINE TOPICAL 4% TP ONE ×2 (11:18→12:00)
[2017-11-02] MEDS ORDERED: AD OINTMENT TP ONE (12:04)
[2017-11-02] MEDS ORDERED: AD OINTMENT TP PRN (12:06)
== END 2017-11-02 10:10 | disposition home or self-care (01) ==
LOC: WOUND 10:09
PROVIDERS: ATTEND Surgery
DX: L97.312 Non-pressure chronic ulcer of right ankle with fat layer exposed (principal); L97.322 Non-pressure chronic ulcer of left ankle with fat layer exposed; D57.1 Sickle-cell disease without crisis; I74.3 Embolism and thrombosis of arteries of the lower extremities; K21.9 Gastro-esophageal reflux disease without esophagitis
CPT/HCPCS: 29581; A6250

== ENCOUNTER 2017-11-06 13:29 | Outpatient (CLI) | payer MEDICAID ==
[2017-11-06] MEDS ORDERED: XYLOCAINE TOPICAL 4% TP ONE ×2 (13:40→14:33)
== END 2017-11-06 13:30 | disposition home or self-care (01) ==
LOC: WOUND 13:29
PROVIDERS: ATTEND Surgery
DX: L97.312 Non-pressure chronic ulcer of right ankle with fat layer exposed (principal); L97.322 Non-pressure chronic ulcer of left ankle with fat layer exposed; D57.1 Sickle-cell disease without crisis; I74.3 Embolism and thrombosis of arteries of the lower extremities; G62.9 Polyneuropathy, unspecified; K21.9 Gastro-esophageal reflux disease without esophagitis
CPT/HCPCS: 29581

== ENCOUNTER 2017-11-23 10:22 | Outpatient (CLI) | payer MEDICAID ==
[2017-11-23] MEDS ORDERED: XYLOCAINE TOPICAL 4% TP ONE (10:32)
== END 2017-11-23 10:23 | disposition home or self-care (01) ==
LOC: WOUND 10:22
PROVIDERS: ATTEND Surgery
DX: L97.312 Non-pressure chronic ulcer of right ankle with fat layer exposed (principal); L97.322 Non-pressure chronic ulcer of left ankle with fat layer exposed; D57.1 Sickle-cell disease without crisis; I74.3 Embolism and thrombosis of arteries of the lower extremities; K21.9 Gastro-esophageal reflux disease without esophagitis; G62.9 Polyneuropathy, unspecified
CPT/HCPCS: 87075; 87076; 87116; 87186

== ENCOUNTER 2017-11-30 10:23 | Outpatient (CLI) | payer MEDICAID ==
[2017-11-30] MEDS ORDERED: XYLOCAINE TOPICAL 4% TP ONE ×2 (11:34→11:45)
[2017-11-30] MEDS ORDERED: DAKIN'S FULL STRENGTH ONE (12:42)
[2017-11-30] MEDS ORDERED: DAKIN'S FULL STRENGTH TP ONE (12:47)
== END 2017-11-30 10:24 | disposition home or self-care (01) ==
LOC: WOUND 10:23
PROVIDERS: ATTEND Surgery
DX: L97.312 Non-pressure chronic ulcer of right ankle with fat layer exposed (principal); L97.322 Non-pressure chronic ulcer of left ankle with fat layer exposed; D57.1 Sickle-cell disease without crisis; I74.3 Embolism and thrombosis of arteries of the lower extremities; K21.9 Gastro-esophageal reflux disease without esophagitis; G62.9 Polyneuropathy, unspecified

== ENCOUNTER 2017-12-07 10:27 | Outpatient (CLI) | payer MEDICAID ==
[2017-12-07] MEDS ORDERED: XYLOCAINE TOPICAL 4% TP ONE (10:36)
== END 2017-12-07 10:28 | disposition home or self-care (01) ==
LOC: WOUND 10:27
PROVIDERS: ATTEND Surgery
DX: L97.312 Non-pressure chronic ulcer of right ankle with fat layer exposed (principal); L97.322 Non-pressure chronic ulcer of left ankle with fat layer exposed; D57.1 Sickle-cell disease without crisis; I74.3 Embolism and thrombosis of arteries of the lower extremities; K21.9 Gastro-esophageal reflux disease without esophagitis; G62.9 Polyneuropathy, unspecified
CPT/HCPCS: 29581

== ENCOUNTER 2017-12-11 08:26 | Outpatient (CLI) | payer MEDICAID | END 2017-12-11 08:27 | disposition home or self-care (01) | LOC: WOUND 08:26 | PROVIDERS: ATTEND Surgery | DX: L97.312 Non-pressure chronic ulcer of right ankle with fat layer exposed (principal); L97.322 Non-pressure chronic ulcer of left ankle with fat layer exposed; D57.1 Sickle-cell disease without crisis; I74.3 Embolism and thrombosis of arteries of the lower extremities; K21.9 Gastro-esophageal reflux disease without esophagitis; G62.9 Polyneuropathy, unspecified | CPT/HCPCS: 99213; G0463 ==

== ENCOUNTER 2017-12-14 10:40 | Outpatient (CLI) | payer MEDICAID ==
[2017-12-14] MEDS ORDERED: XYLOCAINE TOPICAL 4% TP ONE ×2 (13:45→13:50)
== END 2017-12-14 10:41 | disposition home or self-care (01) ==
LOC: WOUND 10:40
PROVIDERS: ATTEND Surgery
DX: L97.312 Non-pressure chronic ulcer of right ankle with fat layer exposed (principal); L97.322 Non-pressure chronic ulcer of left ankle with fat layer exposed; D57.1 Sickle-cell disease without crisis; I74.3 Embolism and thrombosis of arteries of the lower extremities; K21.9 Gastro-esophageal reflux disease without esophagitis; G62.9 Polyneuropathy, unspecified
CPT/HCPCS: 29581

== ENCOUNTER 2017-12-17 08:51 | Outpatient (CLI) | payer MEDICAID | END 2017-12-17 08:52 | disposition home or self-care (01) | LOC: WOUND 08:51 | PROVIDERS: ATTEND Surgery | DX: L97.312 Non-pressure chronic ulcer of right ankle with fat layer exposed (principal); L97.322 Non-pressure chronic ulcer of left ankle with fat layer exposed; D57.1 Sickle-cell disease without crisis; I74.3 Embolism and thrombosis of arteries of the lower extremities; K21.9 Gastro-esophageal reflux disease without esophagitis; G62.9 Polyneuropathy, unspecified | CPT/HCPCS: 29581 ==

== ENCOUNTER 2017-12-24 10:55 | Outpatient (CLI) | payer MEDICAID ==
[2017-12-24] MEDS ORDERED: XYLOCAINE TOPICAL 4% TP ONE ×2 (11:09)
== END 2017-12-24 10:56 | disposition home or self-care (01) ==
LOC: WOUND 10:55
PROVIDERS: ATTEND Surgery
DX: L97.312 Non-pressure chronic ulcer of right ankle with fat layer exposed (principal); L97.322 Non-pressure chronic ulcer of left ankle with fat layer exposed; D57.1 Sickle-cell disease without crisis; I74.3 Embolism and thrombosis of arteries of the lower extremities; K21.9 Gastro-esophageal reflux disease without esophagitis; G62.9 Polyneuropathy, unspecified
CPT/HCPCS: 29581; G0463

== ENCOUNTER 2017-12-28 10:24 | Outpatient (CLI) | payer MEDICAID ==
[2017-12-28] MEDS ORDERED: XYLOCAINE TOPICAL 4% TP ONE ×2 (10:49→11:33)
== END 2017-12-28 10:25 | disposition home or self-care (01) ==
LOC: WOUND 10:24
PROVIDERS: ATTEND Surgery
DX: L97.312 Non-pressure chronic ulcer of right ankle with fat layer exposed (principal); L97.322 Non-pressure chronic ulcer of left ankle with fat layer exposed; D57.1 Sickle-cell disease without crisis; I74.3 Embolism and thrombosis of arteries of the lower extremities; K21.9 Gastro-esophageal reflux disease without esophagitis; G62.9 Polyneuropathy, unspecified
CPT/HCPCS: 29581

== ENCOUNTER 2018-01-01 09:24 | Outpatient (CLI) | payer MEDICAID | END 2018-01-01 09:25 | disposition home or self-care (01) | LOC: WOUND 09:24 | PROVIDERS: ATTEND Surgery | DX: L97.312 Non-pressure chronic ulcer of right ankle with fat layer exposed (principal); L97.322 Non-pressure chronic ulcer of left ankle with fat layer exposed; D57.1 Sickle-cell disease without crisis; I74.3 Embolism and thrombosis of arteries of the lower extremities; K21.9 Gastro-esophageal reflux disease without esophagitis; G62.9 Polyneuropathy, unspecified | CPT/HCPCS: 29581 ==

== ENCOUNTER 2018-01-04 10:21 | Outpatient (CLI) | payer MEDICAID ==
[2018-01-04] MEDS ORDERED: XYLOCAINE TOPICAL 4% TP ONE ×2 (11:19→11:23)
== END 2018-01-04 10:22 | disposition home or self-care (01) ==
LOC: WOUND 10:21
PROVIDERS: ATTEND Surgery
DX: L97.312 Non-pressure chronic ulcer of right ankle with fat layer exposed (principal); L97.322 Non-pressure chronic ulcer of left ankle with fat layer exposed; D57.1 Sickle-cell disease without crisis; I74.3 Embolism and thrombosis of arteries of the lower extremities; K21.9 Gastro-esophageal reflux disease without esophagitis; G62.9 Polyneuropathy, unspecified
CPT/HCPCS: 29581

== ENCOUNTER 2018-01-08 13:31 | Outpatient (CLI) | payer MEDICAID | END 2018-01-08 13:32 | disposition home or self-care (01) | LOC: WOUND 13:31 | PROVIDERS: ATTEND Surgery | DX: L97.312 Non-pressure chronic ulcer of right ankle with fat layer exposed (principal); L97.322 Non-pressure chronic ulcer of left ankle with fat layer exposed; D57.1 Sickle-cell disease without crisis; I74.3 Embolism and thrombosis of arteries of the lower extremities; K21.9 Gastro-esophageal reflux disease without esophagitis; G62.9 Polyneuropathy, unspecified | CPT/HCPCS: 29581 ==

== ENCOUNTER 2018-01-11 10:50 | Outpatient (CLI) | payer MEDICAID ==
[2018-01-11] MEDS ORDERED: XYLOCAINE TOPICAL 4% TP ONE ×2 (12:02→12:36)
== END 2018-01-11 10:51 | disposition home or self-care (01) ==
LOC: WOUND 10:50
PROVIDERS: ATTEND Surgery
DX: L97.312 Non-pressure chronic ulcer of right ankle with fat layer exposed (principal); L97.322 Non-pressure chronic ulcer of left ankle with fat layer exposed; D57.1 Sickle-cell disease without crisis; I74.3 Embolism and thrombosis of arteries of the lower extremities; K21.9 Gastro-esophageal reflux disease without esophagitis; G62.9 Polyneuropathy, unspecified
CPT/HCPCS: 29581

== ENCOUNTER 2018-01-15 11:26 | Outpatient (CLI) | payer MEDICAID | END 2018-01-15 11:27 | disposition home or self-care (01) | LOC: WOUND 11:26 | PROVIDERS: ATTEND Surgery | DX: L97.312 Non-pressure chronic ulcer of right ankle with fat layer exposed (principal); L97.322 Non-pressure chronic ulcer of left ankle with fat layer exposed; D57.1 Sickle-cell disease without crisis; I74.3 Embolism and thrombosis of arteries of the lower extremities; K21.9 Gastro-esophageal reflux disease without esophagitis; G62.9 Polyneuropathy, unspecified | CPT/HCPCS: 29581 ==

== ENCOUNTER 2018-01-18 10:36 | Outpatient (CLI) | payer MEDICAID ==
[2018-01-18] MEDS ORDERED: XYLOCAINE TOPICAL 4% TP ONE (11:25)
== END 2018-01-18 10:37 | disposition home or self-care (01) ==
LOC: WOUND 10:36
PROVIDERS: ATTEND Surgery
DX: L97.312 Non-pressure chronic ulcer of right ankle with fat layer exposed (principal); L97.322 Non-pressure chronic ulcer of left ankle with fat layer exposed; D57.1 Sickle-cell disease without crisis; I74.3 Embolism and thrombosis of arteries of the lower extremities; K21.9 Gastro-esophageal reflux disease without esophagitis; G62.9 Polyneuropathy, unspecified
CPT/HCPCS: 29581

== ENCOUNTER 2018-01-22 13:12 | Outpatient (CLI) | payer MEDICAID | END 2018-01-22 13:13 | disposition home or self-care (01) | LOC: WOUND 13:12 | PROVIDERS: ATTEND Surgery | DX: L97.312 Non-pressure chronic ulcer of right ankle with fat layer exposed (principal); L97.322 Non-pressure chronic ulcer of left ankle with fat layer exposed; D57.1 Sickle-cell disease without crisis; I74.3 Embolism and thrombosis of arteries of the lower extremities; K21.9 Gastro-esophageal reflux disease without esophagitis; G62.9 Polyneuropathy, unspecified | CPT/HCPCS: 29581 ==

== ENCOUNTER 2018-01-25 11:01 | Outpatient (CLI) | payer MEDICAID ==
[2018-01-25] MEDS ORDERED: XYLOCAINE TOPICAL 4% TP ONE ×2 (11:09→11:21)
[2018-01-25] MEDS ORDERED: SILVER NITRATE TP ONE ×2 (12:11→16:43)
== END 2018-01-25 11:02 | disposition home or self-care (01) ==
LOC: WOUND 11:01
PROVIDERS: ATTEND Surgery
DX: L97.312 Non-pressure chronic ulcer of right ankle with fat layer exposed (principal); L97.322 Non-pressure chronic ulcer of left ankle with fat layer exposed; D57.1 Sickle-cell disease without crisis; I74.3 Embolism and thrombosis of arteries of the lower extremities; K21.9 Gastro-esophageal reflux disease without esophagitis; G62.9 Polyneuropathy, unspecified
CPT/HCPCS: 29581

== ENCOUNTER 2018-01-29 11:44 | Outpatient (CLI) | payer MEDICAID | END 2018-01-29 11:45 | disposition home or self-care (01) | LOC: WOUND 11:44 | PROVIDERS: ATTEND Surgery | DX: L97.312 Non-pressure chronic ulcer of right ankle with fat layer exposed (principal); L97.322 Non-pressure chronic ulcer of left ankle with fat layer exposed; D57.1 Sickle-cell disease without crisis; I74.3 Embolism and thrombosis of arteries of the lower extremities; K21.9 Gastro-esophageal reflux disease without esophagitis; G62.9 Polyneuropathy, unspecified | CPT/HCPCS: 29581 ==

== ENCOUNTER 2018-02-01 10:50 | Outpatient (CLI) | payer MEDICAID ==
[2018-02-01] MEDS ORDERED: XYLOCAINE TOPICAL 4% TP ONE ×2 (11:40→12:08)
== END 2018-02-01 10:51 | disposition home or self-care (01) ==
LOC: WOUND 10:50
PROVIDERS: ATTEND Surgery
DX: L97.312 Non-pressure chronic ulcer of right ankle with fat layer exposed (principal); L97.322 Non-pressure chronic ulcer of left ankle with fat layer exposed; D57.1 Sickle-cell disease without crisis; I74.3 Embolism and thrombosis of arteries of the lower extremities; K21.9 Gastro-esophageal reflux disease without esophagitis; G62.9 Polyneuropathy, unspecified
CPT/HCPCS: 29581

== ENCOUNTER 2018-02-08 10:49 | Outpatient (CLI) | payer MEDICAID ==
[2018-02-08] MEDS ORDERED: XYLOCAINE TOPICAL 4% TP ONE ×2 (11:09→11:18)
== END 2018-02-08 10:50 | disposition home or self-care (01) ==
LOC: WOUND 10:49
PROVIDERS: ATTEND Surgery
DX: L97.312 Non-pressure chronic ulcer of right ankle with fat layer exposed (principal); L97.322 Non-pressure chronic ulcer of left ankle with fat layer exposed; D57.1 Sickle-cell disease without crisis; I74.3 Embolism and thrombosis of arteries of the lower extremities; K21.9 Gastro-esophageal reflux disease without esophagitis; G62.9 Polyneuropathy, unspecified
CPT/HCPCS: 29581

== ENCOUNTER → 2018-02-12 | Outpatient (CLI) | payer MEDICAID | END | disposition home or self-care (01) | LOC: WOUND 11:56 | PROVIDERS: ATTEND Surgery | DX: L97.312 Non-pressure chronic ulcer of right ankle with fat layer exposed (principal); L97.322 Non-pressure chronic ulcer of left ankle with fat layer exposed; D57.1 Sickle-cell disease without crisis; I74.3 Embolism and thrombosis of arteries of the lower extremities; K21.9 Gastro-esophageal reflux disease without esophagitis; G62.9 Polyneuropathy, unspecified | CPT/HCPCS: 29581 ==

== ENCOUNTER 2018-02-15 10:49 | Outpatient (CLI) | payer MEDICAID ==
[2018-02-15] MEDS ORDERED: XYLOCAINE TOPICAL 4% TP ONE (12:03)
== END 2018-02-15 10:50 | disposition home or self-care (01) ==
LOC: WOUND 10:49
PROVIDERS: ATTEND Surgery
DX: L97.312 Non-pressure chronic ulcer of right ankle with fat layer exposed (principal); L97.322 Non-pressure chronic ulcer of left ankle with fat layer exposed; D57.1 Sickle-cell disease without crisis; I74.3 Embolism and thrombosis of arteries of the lower extremities; K21.9 Gastro-esophageal reflux disease without esophagitis; G62.9 Polyneuropathy, unspecified
CPT/HCPCS: 29581; 87075; 87076; 87116; 87186

== ENCOUNTER 2018-02-22 10:19 | Outpatient (CLI) | payer MEDICAID ==
[2018-02-22] MEDS ORDERED: XYLOCAINE TOPICAL 4% TP ONE ×2 (10:30→16:08)
== END 2018-02-22 10:20 | disposition home or self-care (01) ==
LOC: WOUND 10:19
PROVIDERS: ATTEND Surgery
DX: L97.312 Non-pressure chronic ulcer of right ankle with fat layer exposed (principal); L97.322 Non-pressure chronic ulcer of left ankle with fat layer exposed; D57.1 Sickle-cell disease without crisis; I74.3 Embolism and thrombosis of arteries of the lower extremities; K21.9 Gastro-esophageal reflux disease without esophagitis; G62.9 Polyneuropathy, unspecified
CPT/HCPCS: 29581

== ENCOUNTER 2018-03-08 10:48 | Outpatient (CLI) | payer MEDICAID ==
[2018-03-08] MEDS ORDERED: XYLOCAINE TOPICAL 4% TP ONE ×2 (11:09→12:32)
== END 2018-03-08 10:49 | disposition home or self-care (01) ==
LOC: WOUND 10:48
PROVIDERS: ATTEND Surgery
DX: L97.312 Non-pressure chronic ulcer of right ankle with fat layer exposed (principal); L97.322 Non-pressure chronic ulcer of left ankle with fat layer exposed; D57.1 Sickle-cell disease without crisis; I74.3 Embolism and thrombosis of arteries of the lower extremities; K21.9 Gastro-esophageal reflux disease without esophagitis; G62.9 Polyneuropathy, unspecified

== ENCOUNTER 2018-03-22 10:38 | Outpatient (CLI) | payer MEDICAID ==
[2018-03-22] MEDS ORDERED: XYLOCAINE TOPICAL 4% TP ONE ×2 (10:44→10:49)
== END 2018-03-22 10:39 | disposition home or self-care (01) ==
LOC: WOUND 10:38
PROVIDERS: ATTEND Surgery
DX: L97.312 Non-pressure chronic ulcer of right ankle with fat layer exposed (principal); L97.322 Non-pressure chronic ulcer of left ankle with fat layer exposed; D57.1 Sickle-cell disease without crisis; I74.3 Embolism and thrombosis of arteries of the lower extremities; K21.9 Gastro-esophageal reflux disease without esophagitis; G62.9 Polyneuropathy, unspecified

== ENCOUNTER 2018-03-29 10:39 | Outpatient (CLI) | payer MEDICAID ==
[2018-03-29] MEDS ORDERED: XYLOCAINE TOPICAL 4% TP ONE ×2 (11:09→11:18)
== END 2018-03-29 10:40 | disposition home or self-care (01) ==
LOC: WOUND 10:39
PROVIDERS: ATTEND Surgery
DX: L97.312 Non-pressure chronic ulcer of right ankle with fat layer exposed (principal); L97.322 Non-pressure chronic ulcer of left ankle with fat layer exposed; D57.1 Sickle-cell disease without crisis; I74.3 Embolism and thrombosis of arteries of the lower extremities; K21.9 Gastro-esophageal reflux disease without esophagitis; G62.9 Polyneuropathy, unspecified

== ENCOUNTER 2018-04-19 10:47 | Outpatient (CLI) | payer MEDICAID ==
[2018-04-19] MEDS ORDERED: XYLOCAINE TOPICAL 4% TP ONE ×2 (11:00→14:31)
== END 2018-04-19 10:48 | disposition home or self-care (01) ==
LOC: WOUND 10:47
PROVIDERS: ATTEND Surgery
DX: L97.312 Non-pressure chronic ulcer of right ankle with fat layer exposed (principal); L97.322 Non-pressure chronic ulcer of left ankle with fat layer exposed; D57.1 Sickle-cell disease without crisis; I74.3 Embolism and thrombosis of arteries of the lower extremities; K21.9 Gastro-esophageal reflux disease without esophagitis; G62.9 Polyneuropathy, unspecified

== ENCOUNTER 2018-06-20 09:10 | Outpatient (CLI) | payer MEDICAID ==
[2018-06-20] MEDS ORDERED: XYLOCAINE TOPICAL 4% TP ONE (09:17)
[2018-06-20] MEDS ORDERED: SILVER NITRATE TP ONE (09:17)
== END 2018-06-20 09:11 | disposition home or self-care (01) ==
LOC: WOUND 09:10
PROVIDERS: ATTEND Surgery
DX: L97.312 Non-pressure chronic ulcer of right ankle with fat layer exposed (principal); L97.322 Non-pressure chronic ulcer of left ankle with fat layer exposed; D57.1 Sickle-cell disease without crisis; G62.9 Polyneuropathy, unspecified; K21.9 Gastro-esophageal reflux disease without esophagitis; Z90.49 Acquired absence of other specified parts of digestive tract

== ENCOUNTER 2018-06-28 10:37 | Outpatient (CLI) | payer MEDICAID ==
[2018-06-28] MEDS ORDERED: XYLOCAINE TOPICAL 4% TP ONE (10:50)
== END 2018-06-28 10:38 | disposition home or self-care (01) ==
LOC: WOUND 10:37
PROVIDERS: ATTEND Surgery
DX: L97.312 Non-pressure chronic ulcer of right ankle with fat layer exposed (principal); L97.322 Non-pressure chronic ulcer of left ankle with fat layer exposed; D57.1 Sickle-cell disease without crisis; Z86.718 Personal history of other venous thrombosis and embolism; G62.9 Polyneuropathy, unspecified; K21.9 Gastro-esophageal reflux disease without esophagitis; Z90.49 Acquired absence of other specified parts of digestive tract

== ENCOUNTER 2018-07-05 10:43 | Outpatient (CLI) | payer MEDICAID ==
[2018-07-05] MEDS ORDERED: XYLOCAINE TOPICAL 4% TP ONE (11:37)
[2018-07-05] MEDS ORDERED: SILVER NITRATE TP ONE (11:37)
== END 2018-07-05 10:44 | disposition home or self-care (01) ==
LOC: WOUND 10:43
PROVIDERS: ATTEND Surgery
DX: L97.312 Non-pressure chronic ulcer of right ankle with fat layer exposed (principal); L97.322 Non-pressure chronic ulcer of left ankle with fat layer exposed; D57.1 Sickle-cell disease without crisis; Z86.718 Personal history of other venous thrombosis and embolism; G62.9 Polyneuropathy, unspecified; K21.9 Gastro-esophageal reflux disease without esophagitis; Z90.49 Acquired absence of other specified parts of digestive tract

== ENCOUNTER 2018-07-12 10:26 | Outpatient (CLI) | payer MEDICAID ==
[2018-07-12] MEDS ORDERED: XYLOCAINE TOPICAL 4% TP ONE (10:50)
[2018-07-12] MEDS ORDERED: SILVER NITRATE TP ONE (11:44)
[2018-07-12] MEDS ORDERED: AD OINTMENT TP PRN (11:56)
== END 2018-07-12 10:27 | disposition home or self-care (01) ==
LOC: WOUND 10:26
PROVIDERS: ATTEND Surgery
DX: L97.312 Non-pressure chronic ulcer of right ankle with fat layer exposed (principal); L97.322 Non-pressure chronic ulcer of left ankle with fat layer exposed; D57.1 Sickle-cell disease without crisis; G62.9 Polyneuropathy, unspecified; K21.9 Gastro-esophageal reflux disease without esophagitis; Z90.49 Acquired absence of other specified parts of digestive tract; Z86.718 Personal history of other venous thrombosis and embolism

== ENCOUNTER 2018-07-26 10:55 | Outpatient (CLI) | payer MEDICAID ==
[2018-07-26] MEDS ORDERED: AD OINTMENT TP PRN (11:42)
== END 2018-07-26 10:56 | disposition home or self-care (01) ==
LOC: WOUND 10:55
PROVIDERS: ATTEND Surgery
DX: L97.312 Non-pressure chronic ulcer of right ankle with fat layer exposed (principal); L97.322 Non-pressure chronic ulcer of left ankle with fat layer exposed; D57.1 Sickle-cell disease without crisis; I74.3 Embolism and thrombosis of arteries of the lower extremities; K21.9 Gastro-esophageal reflux disease without esophagitis; G62.9 Polyneuropathy, unspecified; Z90.49 Acquired absence of other specified parts of digestive tract
CPT/HCPCS: A6250

== ENCOUNTER 2018-08-02 10:34 | Outpatient (CLI) | payer MEDICAID ==
[2018-08-02] MEDS ORDERED: XYLOCAINE TOPICAL 4% TP ONE (10:53)
[2018-08-02] MEDS ORDERED: SILVER NITRATE TP ONE (10:54)
== END 2018-08-02 10:35 | disposition home or self-care (01) ==
LOC: WOUND 10:34
PROVIDERS: ATTEND Surgery
DX: L97.312 Non-pressure chronic ulcer of right ankle with fat layer exposed (principal); L97.322 Non-pressure chronic ulcer of left ankle with fat layer exposed; D57.1 Sickle-cell disease without crisis; I74.3 Embolism and thrombosis of arteries of the lower extremities; K21.9 Gastro-esophageal reflux disease without esophagitis; G62.9 Polyneuropathy, unspecified
CPT/HCPCS: 87075; 87076; 87116; 87186

== ENCOUNTER 2018-08-09 10:36 | Outpatient (CLI) | payer MEDICAID ==
[2018-08-09] MEDS ORDERED: XYLOCAINE TOPICAL 4% TP NR (10:38)
[2018-08-09] MEDS ORDERED: SILVER NITRATE TP NR (10:38)
== END 2018-08-09 10:37 | disposition home or self-care (01) ==
LOC: WOUND 10:36
PROVIDERS: ATTEND Surgery
DX: L97.312 Non-pressure chronic ulcer of right ankle with fat layer exposed (principal); L97.322 Non-pressure chronic ulcer of left ankle with fat layer exposed; D57.1 Sickle-cell disease without crisis; I74.3 Embolism and thrombosis of arteries of the lower extremities; K21.9 Gastro-esophageal reflux disease without esophagitis; G62.9 Polyneuropathy, unspecified; Z90.49 Acquired absence of other specified parts of digestive tract

== ENCOUNTER 2018-08-23 10:33 | Outpatient (CLI) | payer MEDICAID ==
[2018-08-23] MEDS ORDERED: AD OINTMENT TP PRN (10:46)
[2018-08-23] MEDS ORDERED: SILVER NITRATE TP ONE (11:46)
[2018-08-23] MEDS ORDERED: XYLOCAINE TOPICAL 4% TP ONE (11:46)
== END 2018-08-23 10:34 | disposition home or self-care (01) ==
LOC: WOUND 10:33
PROVIDERS: ATTEND Surgery
DX: L97.312 Non-pressure chronic ulcer of right ankle with fat layer exposed (principal); L97.322 Non-pressure chronic ulcer of left ankle with fat layer exposed; D57.1 Sickle-cell disease without crisis; I74.3 Embolism and thrombosis of arteries of the lower extremities; K21.9 Gastro-esophageal reflux disease without esophagitis; G62.9 Polyneuropathy, unspecified; Z90.49 Acquired absence of other specified parts of digestive tract
CPT/HCPCS: A6250

== ENCOUNTER 2018-08-30 10:35 | Outpatient (CLI) | payer MEDICAID ==
[2018-08-30] MEDS ORDERED: XYLOCAINE TOPICAL 4% TP ONE (10:46)
== END 2018-08-30 10:36 | disposition home or self-care (01) ==
LOC: WOUND 10:35
PROVIDERS: ATTEND Surgery
DX: L97.312 Non-pressure chronic ulcer of right ankle with fat layer exposed (principal); L97.322 Non-pressure chronic ulcer of left ankle with fat layer exposed; D57.1 Sickle-cell disease without crisis; I74.3 Embolism and thrombosis of arteries of the lower extremities; K21.9 Gastro-esophageal reflux disease without esophagitis; G62.9 Polyneuropathy, unspecified; Z90.49 Acquired absence of other specified parts of digestive tract
CPT/HCPCS: 29581

== ENCOUNTER 2018-09-06 10:30 | Outpatient (CLI) | payer MEDICAID ==
[2018-09-06] MEDS ORDERED: SILVER NITRATE TP ONE (11:30)
[2018-09-06] MEDS ORDERED: XYLOCAINE TOPICAL 4% TP ONE (11:30)
== END 2018-09-06 10:31 | disposition home or self-care (01) ==
LOC: WOUND 10:30
PROVIDERS: ATTEND Surgery
DX: L97.312 Non-pressure chronic ulcer of right ankle with fat layer exposed (principal); L97.322 Non-pressure chronic ulcer of left ankle with fat layer exposed; D57.1 Sickle-cell disease without crisis; I74.3 Embolism and thrombosis of arteries of the lower extremities; K21.9 Gastro-esophageal reflux disease without esophagitis; G62.9 Polyneuropathy, unspecified; Z90.49 Acquired absence of other specified parts of digestive tract

== ENCOUNTER 2018-09-13 10:34 | Outpatient (CLI) | payer MEDICAID ==
[2018-09-13] MEDS ORDERED: XYLOCAINE TOPICAL 4% TP ONE (11:00)
== END 2018-09-13 10:35 | disposition home or self-care (01) ==
LOC: WOUND 10:34
PROVIDERS: ATTEND Surgery
DX: L97.312 Non-pressure chronic ulcer of right ankle with fat layer exposed (principal); L97.322 Non-pressure chronic ulcer of left ankle with fat layer exposed; D57.1 Sickle-cell disease without crisis; I74.3 Embolism and thrombosis of arteries of the lower extremities; K21.9 Gastro-esophageal reflux disease without esophagitis; G62.9 Polyneuropathy, unspecified; Z90.49 Acquired absence of other specified parts of digestive tract
CPT/HCPCS: 29581

== ENCOUNTER 2018-09-20 12:35 | Outpatient (CLI) | payer MEDICAID ==
[2018-09-20 13:13] LABS: Hemoglobin 6.5 gm/dl (11.8-15.2); Mean Corpuscular HGB Conc 36 % (32-34); Mean Corpuscular Volume 88 fl (84-94); Platelet Count 242 K/mm3 (140-440); Red Blood Count 2.06 M/mm3 (3.65-5.03)
[2018-09-20 13:14] LABS: Red Cell Distribution Width 28.8 % (13.2-15.2)
[2018-09-20 13:19] LABS: Hematocrit 18.2 % (35.5-45.6)
[2018-09-20 15:34] LABS: Anisocytosis 3+; Eosinophils % (Manual) 0 % (0.0-4.3); Hypochromasia 2+; Sickle Cells 3+; Total Cells Counted 100
[2018-09-20 15:35] LABS: Platelet Estimate Consistent w Auto
== END 2018-09-20 12:36 | disposition home or self-care (01) ==
LOC: LAB 12:35
PROVIDERS: ATTEND Surgery
DX: D57.1 Sickle-cell disease without crisis (principal); L97.312 Non-pressure chronic ulcer of right ankle with fat layer exposed; L97.322 Non-pressure chronic ulcer of left ankle with fat layer exposed
CPT/HCPCS: 36415; 85007; 85025

== ENCOUNTER 2018-09-27 10:35 | Outpatient (CLI) | payer MEDICAID ==
[2018-09-27] MEDS ORDERED: XYLOCAINE TOPICAL 4% TP ONE (10:39)
== END 2018-09-27 10:36 | disposition home or self-care (01) ==
LOC: WOUND 10:35
PROVIDERS: ATTEND Surgery
DX: L97.312 Non-pressure chronic ulcer of right ankle with fat layer exposed (principal); L97.322 Non-pressure chronic ulcer of left ankle with fat layer exposed; D57.1 Sickle-cell disease without crisis; I74.3 Embolism and thrombosis of arteries of the lower extremities; K21.9 Gastro-esophageal reflux disease without esophagitis; G60.9 Hereditary and idiopathic neuropathy, unspecified; Z90.49 Acquired absence of other specified parts of digestive tract
CPT/HCPCS: 29581

== ENCOUNTER 2018-10-04 10:37 | Outpatient (CLI) | payer MEDICAID ==
[2018-10-04] MEDS ORDERED: XYLOCAINE TOPICAL 4% TP ONE (10:44)
== END 2018-10-04 10:38 | disposition home or self-care (01) ==
LOC: WOUND 10:37
PROVIDERS: ATTEND Surgery
DX: L97.312 Non-pressure chronic ulcer of right ankle with fat layer exposed (principal); L97.322 Non-pressure chronic ulcer of left ankle with fat layer exposed; D57.1 Sickle-cell disease without crisis; I74.3 Embolism and thrombosis of arteries of the lower extremities; K21.9 Gastro-esophageal reflux disease without esophagitis; G60.9 Hereditary and idiopathic neuropathy, unspecified; Z90.49 Acquired absence of other specified parts of digestive tract

== ENCOUNTER 2018-10-11 10:36 | Outpatient (CLI) | payer MEDICAID ==
[2018-10-11] MEDS ORDERED: XYLOCAINE TOPICAL 4% TP ONE (10:54)
[2018-10-11] MEDS ORDERED: SILVER NITRATE TP ONE (10:54)
== END 2018-10-11 10:37 | disposition home or self-care (01) ==
LOC: WOUND 10:36
PROVIDERS: ATTEND Surgery
DX: L97.312 Non-pressure chronic ulcer of right ankle with fat layer exposed (principal); L97.322 Non-pressure chronic ulcer of left ankle with fat layer exposed; D57.1 Sickle-cell disease without crisis; I74.3 Embolism and thrombosis of arteries of the lower extremities; K21.9 Gastro-esophageal reflux disease without esophagitis; G62.9 Polyneuropathy, unspecified; Z90.49 Acquired absence of other specified parts of digestive tract

== ENCOUNTER 2018-10-25 10:49 | Outpatient (CLI) | payer MEDICAID ==
[2018-10-25] MEDS ORDERED: XYLOCAINE TOPICAL 4% TP ONE (12:00)
[2018-10-25] MEDS ORDERED: SILVER NITRATE TP ONE (12:00)
== END 2018-10-25 10:50 | disposition home or self-care (01) ==
LOC: WOUND 10:49
PROVIDERS: ATTEND Surgery
DX: L97.312 Non-pressure chronic ulcer of right ankle with fat layer exposed (principal); L97.322 Non-pressure chronic ulcer of left ankle with fat layer exposed; D57.1 Sickle-cell disease without crisis; I74.3 Embolism and thrombosis of arteries of the lower extremities; K21.9 Gastro-esophageal reflux disease without esophagitis; G62.9 Polyneuropathy, unspecified; Z90.49 Acquired absence of other specified parts of digestive tract

== ENCOUNTER 2018-11-01 10:40 | Outpatient (CLI) | payer MEDICAID ==
[2018-11-01] MEDS ORDERED: XYLOCAINE TOPICAL 4% TP ONE (10:48)
== END 2018-11-01 10:41 | disposition home or self-care (01) ==
LOC: WOUND 10:40
PROVIDERS: ATTEND Surgery
DX: L97.312 Non-pressure chronic ulcer of right ankle with fat layer exposed (principal); L97.322 Non-pressure chronic ulcer of left ankle with fat layer exposed; D57.1 Sickle-cell disease without crisis; I74.3 Embolism and thrombosis of arteries of the lower extremities; K21.9 Gastro-esophageal reflux disease without esophagitis; E11.40 Type 2 diabetes mellitus with diabetic neuropathy, unspecified; Z90.49 Acquired absence of other specified parts of digestive tract

== ENCOUNTER 2018-11-15 11:00 | Outpatient (CLI) | payer MEDICAID ==
[2018-11-15] MEDS ORDERED: XYLOCAINE TOPICAL 4% TP ONE (11:45)
== END 2018-11-15 11:01 | disposition home or self-care (01) ==
LOC: WOUND 11:00
PROVIDERS: ATTEND Surgery
DX: L97.312 Non-pressure chronic ulcer of right ankle with fat layer exposed (principal); L97.322 Non-pressure chronic ulcer of left ankle with fat layer exposed; D57.1 Sickle-cell disease without crisis; I74.3 Embolism and thrombosis of arteries of the lower extremities; K21.9 Gastro-esophageal reflux disease without esophagitis; Z90.49 Acquired absence of other specified parts of digestive tract

== ENCOUNTER 2018-11-22 11:02 | Outpatient (CLI) | payer MEDICAID ==
[2018-11-22] MEDS ORDERED: SILVER NITRATE TP ONE (11:15)
[2018-11-22] MEDS ORDERED: XYLOCAINE TOPICAL 4% TP ONE (11:15)
== END 2018-11-22 11:03 | disposition home or self-care (01) ==
LOC: WOUND 11:02
PROVIDERS: ATTEND Surgery
DX: L97.312 Non-pressure chronic ulcer of right ankle with fat layer exposed (principal); L97.322 Non-pressure chronic ulcer of left ankle with fat layer exposed; D57.1 Sickle-cell disease without crisis; I74.3 Embolism and thrombosis of arteries of the lower extremities; K21.9 Gastro-esophageal reflux disease without esophagitis; G62.9 Polyneuropathy, unspecified; Z90.49 Acquired absence of other specified parts of digestive tract

== ENCOUNTER 2018-11-29 11:01 | Outpatient (CLI) | payer MEDICAID ==
[2018-11-29] MEDS ORDERED: XYLOCAINE TOPICAL 4% TP ONE (11:11)
== END 2018-11-29 11:02 | disposition home or self-care (01) ==
LOC: WOUND 11:01
PROVIDERS: ATTEND Surgery
DX: L97.312 Non-pressure chronic ulcer of right ankle with fat layer exposed (principal); L97.322 Non-pressure chronic ulcer of left ankle with fat layer exposed; D57.1 Sickle-cell disease without crisis; I74.3 Embolism and thrombosis of arteries of the lower extremities; K21.9 Gastro-esophageal reflux disease without esophagitis; G62.9 Polyneuropathy, unspecified; Z90.49 Acquired absence of other specified parts of digestive tract
CPT/HCPCS: 87076; 87116; 87186

== ENCOUNTER 2018-12-06 11:01 | Outpatient (CLI) | payer MEDICAID ==
[2018-12-06] MEDS ORDERED: XYLOCAINE TOPICAL 4% TP ONE (11:33)
[2018-12-06] MEDS ORDERED: AD OINTMENT TP SCH (11:33)
== END 2018-12-06 11:02 | disposition home or self-care (01) ==
LOC: WOUND 11:01
PROVIDERS: ATTEND Surgery
DX: L97.312 Non-pressure chronic ulcer of right ankle with fat layer exposed (principal); L97.322 Non-pressure chronic ulcer of left ankle with fat layer exposed; D57.1 Sickle-cell disease without crisis; I74.3 Embolism and thrombosis of arteries of the lower extremities; K21.9 Gastro-esophageal reflux disease without esophagitis; G62.9 Polyneuropathy, unspecified; Z90.49 Acquired absence of other specified parts of digestive tract
CPT/HCPCS: A6250

== ENCOUNTER 2018-12-13 10:54 | Outpatient (CLI) | payer MEDICAID ==
[2018-12-13] MEDS ORDERED: SILVER NITRATE TP ONE (11:26)
[2018-12-13] MEDS ORDERED: XYLOCAINE TOPICAL 4% TP ONE (11:26)
== END 2018-12-13 10:55 | disposition home or self-care (01) ==
LOC: WOUND 10:54
PROVIDERS: ATTEND Surgery
DX: L97.312 Non-pressure chronic ulcer of right ankle with fat layer exposed (principal); L97.322 Non-pressure chronic ulcer of left ankle with fat layer exposed; D57.1 Sickle-cell disease without crisis; I74.3 Embolism and thrombosis of arteries of the lower extremities; G62.9 Polyneuropathy, unspecified; Z90.49 Acquired absence of other specified parts of digestive tract

== ENCOUNTER 2018-12-20 10:49 | Outpatient (CLI) | payer MEDICAID ==
[2018-12-20] MEDS ORDERED: XYLOCAINE TOPICAL 4% TP ONE (10:55)
== END 2018-12-20 10:50 | disposition home or self-care (01) ==
LOC: WOUND 10:49
PROVIDERS: ATTEND Surgery
DX: L97.312 Non-pressure chronic ulcer of right ankle with fat layer exposed (principal); L97.322 Non-pressure chronic ulcer of left ankle with fat layer exposed; D57.1 Sickle-cell disease without crisis; I74.3 Embolism and thrombosis of arteries of the lower extremities; G62.9 Polyneuropathy, unspecified; Z90.49 Acquired absence of other specified parts of digestive tract

== ENCOUNTER 2018-12-27 11:12 | Outpatient (CLI) | payer MEDICAID | END 2018-12-27 11:13 | disposition home or self-care (01) | LOC: WOUND 11:12 | PROVIDERS: ATTEND Surgery | DX: L97.312 Non-pressure chronic ulcer of right ankle with fat layer exposed (principal); L97.322 Non-pressure chronic ulcer of left ankle with fat layer exposed; D57.1 Sickle-cell disease without crisis; I74.3 Embolism and thrombosis of arteries of the lower extremities; G62.9 Polyneuropathy, unspecified; Z90.49 Acquired absence of other specified parts of digestive tract ==

== ENCOUNTER 2019-01-03 11:06 | Outpatient (CLI) | payer MEDICAID | END 2019-01-03 11:07 | disposition home or self-care (01) | LOC: WOUND 11:06 | PROVIDERS: ATTEND Surgery | DX: L97.312 Non-pressure chronic ulcer of right ankle with fat layer exposed (principal); L97.322 Non-pressure chronic ulcer of left ankle with fat layer exposed; D57.1 Sickle-cell disease without crisis; I74.3 Embolism and thrombosis of arteries of the lower extremities; G62.9 Polyneuropathy, unspecified; Z90.49 Acquired absence of other specified parts of digestive tract ==

== ENCOUNTER 2019-01-10 11:07 | Outpatient (CLI) | payer MEDICAID ==
[2019-01-10] MEDS ORDERED: XYLOCAINE TOPICAL 4% TP ONE (11:30)
== END 2019-01-10 11:08 | disposition home or self-care (01) ==
LOC: WOUND 11:07
PROVIDERS: ATTEND Surgery
DX: L97.312 Non-pressure chronic ulcer of right ankle with fat layer exposed (principal); L97.322 Non-pressure chronic ulcer of left ankle with fat layer exposed; D57.1 Sickle-cell disease without crisis; I74.3 Embolism and thrombosis of arteries of the lower extremities; G62.9 Polyneuropathy, unspecified; Z90.49 Acquired absence of other specified parts of digestive tract

== ENCOUNTER 2019-01-17 11:11 | Outpatient (CLI) | payer MEDICAID ==
[2019-01-17] MEDS ORDERED: XYLOCAINE TOPICAL 4% TP ONE (12:52)
[2019-01-17] MEDS ORDERED: SILVER NITRATE TP ONE (12:53)
== END 2019-01-17 11:12 | disposition home or self-care (01) ==
LOC: WOUND 11:11
PROVIDERS: ATTEND Surgery
DX: L97.312 Non-pressure chronic ulcer of right ankle with fat layer exposed (principal); L97.322 Non-pressure chronic ulcer of left ankle with fat layer exposed; D57.1 Sickle-cell disease without crisis; I74.3 Embolism and thrombosis of arteries of the lower extremities; K21.9 Gastro-esophageal reflux disease without esophagitis; G62.9 Polyneuropathy, unspecified; Z90.49 Acquired absence of other specified parts of digestive tract

== ENCOUNTER 2019-01-24 11:11 | Outpatient (CLI) | payer MEDICAID | END 2019-01-24 11:12 | disposition home or self-care (01) | LOC: WOUND 11:11 | PROVIDERS: ATTEND Surgery | DX: L97.312 Non-pressure chronic ulcer of right ankle with fat layer exposed (principal); L97.322 Non-pressure chronic ulcer of left ankle with fat layer exposed; D57.1 Sickle-cell disease without crisis; I74.3 Embolism and thrombosis of arteries of the lower extremities; K21.9 Gastro-esophageal reflux disease without esophagitis; G62.9 Polyneuropathy, unspecified; Z90.49 Acquired absence of other specified parts of digestive tract | CPT/HCPCS: 29581 ==

== ENCOUNTER 2019-01-31 11:31 | Outpatient (CLI) | payer MEDICAID ==
[2019-01-31] MEDS ORDERED: SILVER NITRATE TP ONE (11:44)
[2019-01-31] MEDS ORDERED: XYLOCAINE TOPICAL 4% TP ONE (11:44)
== END 2019-01-31 11:32 | disposition home or self-care (01) ==
LOC: WOUND 11:31
PROVIDERS: ATTEND Surgery
DX: L97.312 Non-pressure chronic ulcer of right ankle with fat layer exposed (principal); L97.322 Non-pressure chronic ulcer of left ankle with fat layer exposed; D57.1 Sickle-cell disease without crisis; I74.3 Embolism and thrombosis of arteries of the lower extremities; G62.9 Polyneuropathy, unspecified; Z90.49 Acquired absence of other specified parts of digestive tract

== ENCOUNTER 2019-02-07 11:11 | Outpatient (CLI) | payer MEDICAID ==
[2019-02-07] MEDS ORDERED: XYLOCAINE TOPICAL 4% TP ONE (11:15)
[2019-02-07] MEDS ORDERED: SILVER NITRATE TP ONE (12:00)
== END 2019-02-07 11:12 | disposition home or self-care (01) ==
LOC: WOUND 11:11
PROVIDERS: ATTEND Surgery
DX: L97.312 Non-pressure chronic ulcer of right ankle with fat layer exposed (principal); L97.322 Non-pressure chronic ulcer of left ankle with fat layer exposed; D57.1 Sickle-cell disease without crisis; I74.3 Embolism and thrombosis of arteries of the lower extremities; G62.9 Polyneuropathy, unspecified; Z90.49 Acquired absence of other specified parts of digestive tract

== ENCOUNTER 2019-02-14 11:13 | Outpatient (CLI) | payer MEDICAID ==
[2019-02-14] MEDS ORDERED: SILVER NITRATE TP ONE (11:24)
[2019-02-14] MEDS ORDERED: AD OINTMENT TP PRN (11:24)
[2019-02-14] MEDS ORDERED: XYLOCAINE TOPICAL 4% TP ONE (12:24)
== END 2019-02-14 11:14 | disposition home or self-care (01) ==
LOC: WOUND 11:13
PROVIDERS: ATTEND Surgery
DX: L97.312 Non-pressure chronic ulcer of right ankle with fat layer exposed (principal); L97.322 Non-pressure chronic ulcer of left ankle with fat layer exposed; D57.1 Sickle-cell disease without crisis; I74.3 Embolism and thrombosis of arteries of the lower extremities; G62.9 Polyneuropathy, unspecified; Z90.49 Acquired absence of other specified parts of digestive tract
CPT/HCPCS: 29581; A6250

== ENCOUNTER 2019-02-24 12:41 | Outpatient (CLI) | payer MEDICAID ==
[2019-02-24] MEDS ORDERED: XYLOCAINE TOPICAL 4% TP ONE (13:49)
== END 2019-02-24 12:42 | disposition home or self-care (01) ==
LOC: WOUND 12:41
PROVIDERS: ATTEND Surgery
DX: L97.312 Non-pressure chronic ulcer of right ankle with fat layer exposed (principal); L97.322 Non-pressure chronic ulcer of left ankle with fat layer exposed; D57.1 Sickle-cell disease without crisis; I74.3 Embolism and thrombosis of arteries of the lower extremities; G62.9 Polyneuropathy, unspecified; Z90.49 Acquired absence of other specified parts of digestive tract

== ENCOUNTER 2019-02-28 11:13 | Outpatient (CLI) | payer MEDICAID | END 2019-02-28 11:14 | disposition home or self-care (01) | LOC: WOUND 11:13 | PROVIDERS: ATTEND Surgery | DX: L97.312 Non-pressure chronic ulcer of right ankle with fat layer exposed (principal); L97.322 Non-pressure chronic ulcer of left ankle with fat layer exposed; D57.1 Sickle-cell disease without crisis; I74.3 Embolism and thrombosis of arteries of the lower extremities; G62.9 Polyneuropathy, unspecified; Z90.49 Acquired absence of other specified parts of digestive tract ==

== ENCOUNTER 2019-03-07 11:13 | Outpatient (CLI) | payer MEDICAID ==
[2019-03-07] MEDS ORDERED: XYLOCAINE TOPICAL 4% TP ONE (11:34)
== END 2019-03-07 11:14 | disposition home or self-care (01) ==
LOC: WOUND 11:13
PROVIDERS: ATTEND Surgery
DX: L97.312 Non-pressure chronic ulcer of right ankle with fat layer exposed (principal); L97.322 Non-pressure chronic ulcer of left ankle with fat layer exposed; D57.1 Sickle-cell disease without crisis; I74.3 Embolism and thrombosis of arteries of the lower extremities; G62.9 Polyneuropathy, unspecified; Z90.49 Acquired absence of other specified parts of digestive tract

== ENCOUNTER 2019-03-14 11:09 | Outpatient (CLI) | payer MEDICAID ==
[2019-03-14] MEDS ORDERED: XYLOCAINE TOPICAL 4% TP ONE (11:16)
== END 2019-03-14 11:10 | disposition home or self-care (01) ==
LOC: WOUND 11:09
PROVIDERS: ATTEND Surgery
DX: L97.312 Non-pressure chronic ulcer of right ankle with fat layer exposed (principal); L97.322 Non-pressure chronic ulcer of left ankle with fat layer exposed; D57.1 Sickle-cell disease without crisis; I74.3 Embolism and thrombosis of arteries of the lower extremities; K21.9 Gastro-esophageal reflux disease without esophagitis; G62.9 Polyneuropathy, unspecified; Z90.49 Acquired absence of other specified parts of digestive tract
CPT/HCPCS: 87075; 87076; 87116; 87186

== ENCOUNTER 2019-04-04 11:14 | Outpatient (CLI) | payer MEDICAID ==
[2019-04-04] MEDS ORDERED: LIDOCAINE (4%) 40 MG/ML TOPICAL SOLN 50 ML BOTTLE TP ONE (11:23)
== END 2019-04-04 11:15 | disposition home or self-care (01) ==
LOC: WOUND 11:14
PROVIDERS: ATTEND Surgery
DX: L97.312 Non-pressure chronic ulcer of right ankle with fat layer exposed (principal); L97.322 Non-pressure chronic ulcer of left ankle with fat layer exposed; D57.1 Sickle-cell disease without crisis; I74.3 Embolism and thrombosis of arteries of the lower extremities; K21.9 Gastro-esophageal reflux disease without esophagitis; G62.9 Polyneuropathy, unspecified; Z90.49 Acquired absence of other specified parts of digestive tract

== ENCOUNTER 2019-04-11 13:43 | Inpatient (IN) | payer MEDICAID ==
[2019-04-11 17:01] LABS: Hematocrit 20.5 % (35.5-45.6); Hemoglobin 7.1 gm/dl (11.8-15.2); Mean Corpuscular HGB Conc 35 % (32-34); Mean Corpuscular Volume 84 fl (84-94); Platelet Count 273 K/mm3 (140-440); Red Blood Count 2.43 M/mm3 (3.65-5.03)
[2019-04-11 17:08] LABS: Red Cell Distribution Width 25.7 % (13.2-15.2)
[2019-04-11 17:41] LABS: Alanine Aminotransferase 21 units/L (7-56); Albumin 3.7 g/dL (3.9-5); BUN/Creatinine Ratio 10; Blood Urea Nitrogen 4 mg/dL (9-20); Calcium 8.2 mg/dL (8.4-10.2); Hemolysis Index 3
[2019-04-11 18:47] LABS: Basophils % (Manual) 0 % (0.0-1.8); Total Cells Counted 100
[2019-04-11 18:48] LABS: Anisocytosis 3+; Hypochromasia 2+; Platelet Estimate Consistent w Auto; Sickle Cells 2+; Target Cells 1+
[2019-04-11] MEDS ORDERED: PHENERGAN 25 MG PO PRN (20:08)
[2019-04-11] MEDS ORDERED: OXYCONTIN 15 MG PO PRN (20:08)
[2019-04-11] MEDS ORDERED: SODIUM CHLORIDE FLUSH SYRINGE 10 ML IV PRN (20:15)
[2019-04-11] MEDS ORDERED: NON-FORMULARY (Omeprazole 40 MG) PO SCH (20:15)
[2019-04-11] MEDS ORDERED: NON-FORMULARY (Folic Acid 1 MG) PO SCH (20:15)
[2019-04-11] MEDS ORDERED: PHENERGAN PR PRN (20:15)
[2019-04-11] MEDS ORDERED: DULCOLAX PR PRN (20:15)
[2019-04-11] MEDS ORDERED: ALUM-MAG HYDROX-SIMETH 200-200-20MG/5ML PO PRN (20:15)
[2019-04-11] MEDS ORDERED: TYLENOL PO PRN (20:15)
[2019-04-11] MEDS ORDERED: REGLAN IV PRN (20:15)
[2019-04-11] MEDS ORDERED: PHENERGAN PO PRN (20:32)
--- NOTE | 2019-04-11 20:42 | History and Physical Report ---
History of Present Illness Date of examination: 04/11/19 Date of admission: 04/11/19 16:05 Chief complaint: Infected bilateral ankle ulcers with MRSA infection History of present illness: 33-year-old -Citizen Of [place] male with history of sickle cell disease and chron ic bilateral right ankle ulcers sent from wound clinic for MRSA positive right ankle and left ankle ulcers for treatment. Patient was apparently on Zyvox 600 mg twice a day. Patient has right ankle ulcer of 7.8 cm 3 cm 0.5 cm with purulent discharge on the medial aspect. Patient also has 7 cm 3 cm 0.5 cm on the left medial part of ankle. Patient sent for further wound care and antibiotics. No fever or chills. Wounds have been dressed on both ankles . Pain is about 6 on a scale of 1-10 Past History Past Medical History: other (sickle cell disease) Past Surgical History: Other (bilateral ankle ulcers with recurrent debridement and wound care.) Social history: lives with family, full code Family history: hypertension Medications and Allergies Allergies Allergy/AdvReac Type Severity Reaction Status Date / Time zinc AdvReac Severe Rash Verified 02/08/16 09:18 Home Medications Medication Instructions Recorded Confirmed Last Taken Type Folic Acid 1 mg PO DAILY 04/11/19 04/11/19 04/10/19 History 1 MG Omeprazole 40 mg PO DAILY 04/11/19 04/11/19 04/10/19 History 40 MG Phenergan 25 mg PO Q4H PRN 04/11/19 04/11/19 04/10/19 History 25 MG oxyCONTIN ER 15 mg PO Q6H PRN 04/11/19 04/11/19 04/10/19 History 15 MG oxyCONTIN ER 40 mg PO Q12H 04/11/19 04/11/19 04/10/19 History 40 MG Active Meds: Active Medications Acetaminophen (Tylenol) 650 mg PO Q4H PRN PRN Reason: Pain MILD(1-3)/Fever >100.5/RODRIGUEZ Al Hydrox/Mg Hydrox/Simethicone (Alum-Mag Hydrox-Simeth [phone]/5ml) 30 ml PO Q4H PRN PRN Reason: Indigestion Bisacodyl (Dulcolax) 10 mg NM QDAY PRN PRN Reason: Constipation unrelieved by MOM Famotidine (Pepcid) 20 mg PO BID [facility] Folic Acid (Folvite) 1 mg PO DAILY [facility] Hydromorphone HCl (Dilaudid) 1 mg IV Q3H PRN PRN Reason: Pain , Severe (7-10) Dextrose/Sodium Chloride (D5ns) 1,000 mls @ 100 mls/hr IV DIRECT [facility] Linezolid (Zyvox) 600 mg PO Q12HR [facility]; Protocol Metoclopramide HCl (Reglan) 10 mg IV Q6H PRN PRN Reason: Nausea And Vomiting Miscellaneous Medication (Oxycontin Er) 15 mg PO Q6H PRN PRN Reason: Pain, Moderate (4-6) Ondansetron HCl (Zofran) 4 mg IV Q8H PRN PRN Reason: Nausea And Vomiting Pantoprazole Sodium (Protonix) 40 mg PO DAILY [facility] Promethazine HCl (Phenergan) 25 mg NM Q6H PRN PRN Reason: N/V IF NPO AND NO IV ACCESS Promethazine HCl (Phenergan) 25 mg PO Q4H PRN PRN Reason: Nausea And Vomiting Sodium Chloride (Sodium Chloride Flush Syringe 10 Ml) 10 ml IV BID [facility] Sodium Chloride (Sodium Chloride Flush Syringe 10 Ml) 10 ml IV PRN PRN PRN Reason: LINE FLUSH Review of Systems All systems: negative Constitutional: no fever, no chills Ears, nose, mouth and throat: no ear pain, no ear discharge, no tinnitis, no decreased hearing, no nose pain Cardiovascular: no chest pain, no orthopnea, no palpitations, no rapid/irregular heart beat, no edema, no syncope, no lightheadedness, no shortness of breath Gastrointestinal: no abdominal pain, no nausea, no vomiting, no diarrhea, no constipation, no change in bowel habits, no hematemesis, no coffee ground emesis Genitourinary Male: no dysuria, no hematuria, no flank pain, no discharge, no urinary frequency, no urinary hesitancy, no nocturia, no incontinence, no erectile dysfunction, no genital pain Rectal: no pain Musculoskeletal: other (bilateral leg ulcers) Integumentary: foot/leg ulcers (bilateral ankle ulcers. Right ankle 7.8 cm 3 cm 0.5 cm. Left ankle 7 cm 3 cm 0.5 cm. Purulent discharge in both ulcers.) Exam - Constitutional Vitals: Temp Pulse Resp BP Pulse Ox 99.2 F 101 H 18 114/65 94 04/11/19 16:31 04/11/19 16:31 04/11/19 20:28 04/11/19 16:31 04/11/19 16:31 General appearance: Present: no acute distress, well-nourished - EENT Eyes: Present: PERRL ENT: hearing intact, clear oral mucosa - Neck Neck: Present: supple, normal ROM - Respiratory Respiratory effort: normal Respiratory: bilateral: CTA - Cardiovascular Heart rate: 78 Rhythm: regular Heart Sounds: Present: S1 & S2. Absent: rub, click - Extremities Extremities: no ischemia, pulses intact, pulses symmetrical, No edema Extremity abnormal: ulceration (bilateral ankle ulcers. Right ankle 7.83 cm 0.5 cm. Left ankle 7 cm 3 cm 0.5 cm with purulent discharge bilaterally) Peripheral Pulses: within normal limits - Abdominal General gastrointestinal: Present: soft, non-tender, non-distended, normal bowel sounds Male genitourinary: Present: normal - Integumentary Integumentary: Present: clear, warm, dry - Musculoskeletal Musculoskeletal: gait normal, strength equal bilaterally - Psychiatric Psychiatric: appropriate mood/affect, intact judgment & insight - Neurologic Neurologic: CNII-XII intact, moves all extremities Results - Labs CBC & Chem 7: 04/11/19 16:35 04/11/19 16:35 Labs: Laboratory Last Values WBC 8.4 K/mm3 (4.5-11.0) 04/11/19 16:35 RBC 2.43 M/mm3 (3.65-5.03) L 04/11/19 16:35 Hgb 7.1 gm/dl (11.8-15.2) L 04/11/19 16:35 Hct 20.5 % (35.5-45.6) L 04/11/19 16:35 MCV 84 fl (84-94) 04/11/19 16:35 MCH 29 pg (28-32) 04/11/19 16:35 MCHC 35 % (32-34) H 04/11/19 16:35 RDW 25.7 % (13.2-15.2) H 04/11/19 16:35 Plt Count 273 K/mm3 (140-440) 04/11/19 16:35 Add Manual Diff Complete 04/11/19 16:35 Total Counted 100 04/11/19 16:35 Seg Neuts % (Manual) 71.0 % (40.0-70.0) H 04/11/19 16:35 Band Neutrophils % 0 % 04/11/19 16:35 Lymphocytes % (Manual) 24.0 % (13.4-35.0) 04/11/19 16:35 Reactive Lymphs % (Man) 0 % 04/11/19 16:35 Monocytes % (Manual) 3.0 % (0.0-7.3) 04/11/19 16:35 Eosinophils % (Manual) 2.0 % (0.0-4.3) 04/11/19 16:35 Basophils % (Manual) 0 % (0.0-1.8) 04/11/19 16:35 Metamyelocytes % 0 % 04/11/19 16:35 Myelocytes % 0 % 04/11/19 16:35 Promyelocytes % 0 % 04/11/19 16:35 Blast Cells % 0 % 04/11/19 16:35 Nucleated RBC % Not Reportable 04/11/19 16:35 Seg Neutrophils # Man 6.0 K/mm3 (1.8-7.7) 04/11/19 16:35 Band Neutrophils # 0.0 K/mm3 04/11/19 16:35 Lymphocytes # (Manual) 2.0 K/mm3 (1.2-5.4) 04/11/19 16:35 Abs React Lymphs (Man) 0.0 K/mm3 04/11/19 16:35 Monocytes # (Manual) 0.3 K/mm3 (0.0-0.8) 04/11/19 16:35 Eosinophils # (Manual) 0.2 K/mm3 (0.0-0.4) 04/11/19 16:35 Basophils # (Manual) 0.0 K/mm3 (0.0-0.1) 04/11/19 16:35 Metamyelocytes # 0.0 K/mm3 04/11/19 16:35 Myelocytes # 0.0 K/mm3 04/11/19 16:35 Promyelocytes # 0.0 K/mm3 04/11/19 16:35 Blast Cells # 0.0 K/mm3 04/11/19 16:35 WBC Morphology Not Reportable 04/11/19 16:35 Hypersegmented Neuts Not Reportable 04/11/19 16:35 Hyposegmented Neuts Not Reportable 04/11/19 16:35 Hypogranular Neuts Not Reportable 04/11/19 16:35 Smudge Cells Not Reportable 04/11/19 16:35 Toxic Granulation Not Reportable 04/11/19 16:35 Toxic Vacuolation Not Reportable 04/11/19 16:35 Dohle Bodies Not Reportable 04/11/19 16:35 Pelger-Huet Anomaly Not Reportable 04/11/19 16:35 Rose Rods Not Reportable 04/11/19 16:35 Platelet Estimate Consistent w auto 04/11/19 16:35 Clumped Platelets Not Reportable 04/11/19 16:35 Plt Clumps, EDTA Not Reportable 04/11/19 16:35 Large Platelets Not Reportable 04/11/19 16:35 Giant Platelets Not Reportable 04/11/19 16:35 Platelet Satelliting Not Reportable 04/11/19 16:35 Plt Morphology Comment Not Reportable 04/11/19 16:35 RBC Morphology Not Reportable 04/11/19 16:35 Dimorphic RBCs Not Reportable 04/11/19 16:35 Polychromasia Few 04/11/19 16:35 Hypochromasia 2+ 04/11/19 16:35 Poikilocytosis Not Reportable 04/11/19 16:35 Anisocytosis 3+ 04/11/19 16:35 Microcytosis Not Reportable 04/11/19 16:35 Macrocytosis Not Reportable 04/11/19 16:35 Spherocytes Not Reportable 04/11/19 16:35 Pappenheimer Bodies Not Reportable 04/11/19 16:35 Sickle Cells 2+ 04/11/19 16:35 Target Cells 1+ 04/11/19 16:35 Tear Drop Cells Not Reportable 04/11/19 16:35 Ovalocytes Not Reportable 04/11/19 16:35 Helmet Cells Not Reportable 04/11/19 16:35 Hernández-Merrill Bodies Not Reportable 04/11/19 16:35 Morrison Rings Not Reportable 04/11/19 16:35 Wesley Cells Not Reportable 04/11/19 16:35 Bite Cells Not Reportable 04/11/19 16:35 Crenated Cell Not Reportable 04/11/19 16:35 Elliptocytes 1+ 04/11/19 16:35 Acanthocytes (Spur) Not Reportable 04/11/19 16:35 Rouleaux Not Reportable 04/11/19 16:35 Hemoglobin C Crystals Not Reportable 04/11/19 16:35 Schistocytes Not Reportable 04/11/19 16:35 Malaria parasites Not Reportable 04/11/19 16:35 Jose De Jesus Bodies Not Reportable 04/11/19 16:35 Hem Pathologist Commnt No 04/11/19 16:35 Sodium 138 mmol/L (137-145) 04/11/19 16:35 Potassium 3.6 mmol/L (3.6-5.0) 04/11/19 16:35 Chloride 103.4 mmol/L (98-107) 04/11/19 16:35 Carbon Dioxide 24 mmol/L (22-30) 04/11/19 16:35 Anion Gap 14 mmol/L 04/11/19 16:35 BUN 4 mg/dL (9-20) L 04/11/19 16:35 Creatinine 0.4 mg/dL (0.8-1.5) L 04/11/19 16:35 Estimated GFR > 60 ml/min 04/11/19 16:35 BUN/Creatinine Ratio 10 % 04/11/19 16:35 Glucose 110 mg/dL (75-100) H 04/11/19 16:35 Calcium 8.2 mg/dL (8.4-10.2) L 04/11/19 16:35 Total Bilirubin 8.80 mg/dL (0.1-1.2) H 04/11/19 16:35 AST 41 units/L (5-40) H 04/11/19 16:35 ALT 21 units/L (7-56) 04/11/19 16:35 Alkaline Phosphatase 202 units/L (35-129) H 04/11/19 16:35 Total Protein 7.6 g/dL (6.3-8.2) 04/11/19 16:35 Albumin 3.7 g/dL (3.9-5) L 04/11/19 16:35 Albumin/Globulin Ratio 0.9 % 04/11/19 16:35 Assessment and Plan Advance Directives: Yes (full code) VTE prophylaxis?: Chemical Plan of care discussed with patient/family: Yes - Patient Problems (1) Postphlebitic ankle ulcer Current Visit: Yes Status: Acute Plan to address problem: Patient has bilateral ankle ulcers on the medial aspects with purulent drainage. Cultures grew MRSA Wound cultures to be sent In the meantime patient is started on IV vancomycin and IV Unasyn. Patient was on Zyvox before but will defer to ID Wound care consult Surgical care consult Pain management (2) Sickle cell disease Current Visit: Yes Status: Chronic Qualifiers: Sickle-cell associated disorders: without crisis Qualified Code(s): D57.1 - Sickle-cell disease without crisis Plan to address problem: IV normal saline and pain control (3) Anemia Current Visit: Yes Status: Chronic Qualifiers: Anemia type: unspecified type Qualified Code(s): D64.9 - Anemia, unspecified Plan to address problem: Secondary to sickle cell disease We will transfuse 1 unit of packed red blood cells for better healing of the ulcer. Hemoglobin is 7.1 (4) Malnutrition Current Visit: Yes Status: Acute Qualifiers: Protein-calorie malnutrition severity: mild Plan to address problem: Jenni this is mild Dietary supplements ordered (5) Transaminitis Current Visit: Yes Status: Acute Plan to address problem: Mild Check hepatitis profile Possible fatty liver (6) DVT prophylaxis Current Visit: Yes Status: Acute Plan to address problem: On Lovenox and GI prophylaxis
[2019-04-11] MEDS ORDERED: NACL 0.9% 500 ML 500 ML IV ONE (21:19)
[2019-04-11] MEDS ORDERED: VANCOMYCIN PHARMACY TO DOSE IV SCH (22:00)
[2019-04-11] MEDS ORDERED: PEPCID PO SCH (22:00)
[2019-04-11] MEDS ORDERED: ZYVOX PO SCH (22:00)
[2019-04-11] MEDS ORDERED: VANCOMYCIN 1,250 MG in NACL 0.9% 250ML 250 ML IV ONE (22:00)
[2019-04-11] MEDS: FOLVITE PO SCH (22:02)
[2019-04-11] MEDS: LOVENOX SUB-Q SCH (22:02)
[2019-04-11] MEDS: SODIUM CHLORIDE FLUSH SYRINGE 10 ML IV SCH (22:03)
[2019-04-11] MEDS: PROTONIX PO SCH (22:03)
--- NOTE | 2019-04-11 22:22 | XRay Report ---
BILATERAL ANKLE 6 VIEW(S) INDICATION / CLINICAL INFORMATION: bilateral ankle ulcers COMPARISON: 11/10/16 FINDINGS: BONES / JOINT(S): No acute fracture or subluxation of either ankle. No significant arthritis. No defi nite acute osseous destruction. Patient appears subjectively osteopenic. SOFT TISSUES: Soft tissue ulcer on the posterior medial left ankle with moderate surrounding soft tis karyn swelling. Soft tissue ulcer on the posterior medial right ankle with surrounding soft tissue swel ling. ADDITIONAL FINDINGS: None. IMPRESSION: 1. Bilateral ankle soft tissue ulcers with surrounding soft tissue swelling. 2. No definite radiographic evidence for osteomyelitis. Signer Name: Irineo Alvarez MD Signed: 04/11/2019 10:17 PM Workstation Name: [id number]
[2019-04-11 22:34] LABS: Hepatitis B Surface Antigen Non-Reactive (Negative); Hepatitis C Virus Antibody Non-Reactive (NonReactive)
[2019-04-12] MEDS: UNASYN/NS 3 GM/100 ML 3 GM/100 ML BAG IV SCH ×3 (00:06→11:39)
[2019-04-12] MEDS: ROXICODONE PO PRN (00:07)
[2019-04-12] MEDS: ZOFRAN IV PRN ×2 (03:28→13:46)
[2019-04-12] MEDS: DILAUDID IV PRN ×2 (03:28→13:21)
[2019-04-12] MEDS: D5NS 1,000 ML IV SCH (04:22)
[2019-04-12 05:29] LABS: Hematocrit 21.7 % (35.5-45.6); Hemoglobin 7.5 gm/dl (11.8-15.2); Mean Corpuscular HGB Conc 35 % (32-34); Mean Corpuscular Volume 84 fl (84-94); Platelet Count 243 K/mm3 (140-440); Red Blood Count 2.57 M/mm3 (3.65-5.03)
[2019-04-12 05:46] LABS: Red Cell Distribution Width 24.7 % (13.2-15.2)
[2019-04-12 05:48] LABS: Alanine Aminotransferase 20 units/L (7-56); Albumin 3.2 g/dL (3.9-5); BUN/Creatinine Ratio 13; Blood Urea Nitrogen 4 mg/dL (9-20); Calcium 7.8 mg/dL (8.4-10.2); Hemolysis Index 1
[2019-04-12 06:58] LABS: Anisocytosis 2+; Hypochromasia 2+; Sickle Cells 1+; Total Cells Counted 100
[2019-04-12 07:02] LABS: Platelet Estimate Consistent w Auto
[2019-04-12 07:03] LABS: Target Cells Rare
[2019-04-12] MEDS: FOLVITE PO SCH (10:15)
[2019-04-12] MEDS: PROTONIX PO SCH (10:15)
[2019-04-12] MEDS: SODIUM CHLORIDE FLUSH SYRINGE 10 ML IV SCH ×2 (10:24→23:54)
[2019-04-12] MEDS: VANCOMYCIN/NS 1 GM/250 ML 1 GM/250 ML BAG IV SCH (12:44)
--- NOTE | 2019-04-12 13:03 | Consultation ---
History of Present Illness Consult date: 04/12/19 Reason for consult: wound care Requesting physician: TANA POWELL Chief complaint: infected leg ulcers - History of present illness History of present illness: 33yo M with sickle cell disease and chronic leg ulcers is well known to our service. He has been managed in the wound clinic for greater than one year. He has a history of recurrent infections of the ulcer. Most recently, his wounds started to worsen and new cultures were obtained. MRSA grew out. Infectious disease has been assisting in his care as an outpatient. They have been unable to get the appropriate antibiotics authorized through the insurance company. Therefore they recommended that patient be admitted for IV antibiotics. Dr. Ha had requested Zyvox. From our perspective, patient's wound care was just done yesterday. He does not require any dressing changes over the weekend. Past History Past Medical History: GERD, other (sickle cell disease; neuropathy) Past Surgical History: cholecystectomy, Other (bilateral ankle ulcers with recurrent debridement and wound care.; Serial ERCPs due to SCD) Social history: lives with family, full code. denies: smoking, alcohol abuse Family history: hypertension Medications and Allergies Allergies Allergy/AdvReac Type Severity Reaction Status Date / Time zinc AdvReac Severe Rash Verified 02/08/16 09:18 Home Medications Medication Instructions Recorded Confirmed Last Taken Type Folic Acid 1 mg PO DAILY 04/11/19 04/11/19 04/10/19 History 1 MG Omeprazole 40 mg PO DAILY 04/11/19 04/11/19 04/10/19 History 40 MG Phenergan 25 mg PO Q4H PRN 04/11/19 04/11/19 04/10/19 History 25 MG oxyCONTIN ER 15 mg PO Q6H PRN 04/11/19 04/11/19 04/10/19 History 15 MG oxyCONTIN ER 40 mg PO Q12H 04/11/19 04/11/19 04/10/19 History 40 MG Active Meds: Active Medications Acetaminophen (Tylenol) 650 mg PO Q4H PRN PRN Reason: Pain MILD(1-3)/Fever >100.5/RODRIGUEZ Al Hydrox/Mg Hydrox/Simethicone (Alum-Mag Hydrox-Simeth [phone]/5ml) 30 ml PO Q4H PRN PRN Reason: Indigestion Bisacodyl (Dulcolax) 10 mg WA QDAY PRN PRN Reason: Constipation unrelieved by MOM Enoxaparin Sodium (Lovenox) 40 mg SUB-Q QDAY@2200 [facility] Last Admin: 04/11/19 22:02 Dose: 40 mg Documented by: Folic Acid (Folvite) 1 mg PO DAILY [facility] Last Admin: 04/12/19 10:15 Dose: 1 mg Documented by: Hydromorphone HCl (Dilaudid) 1 mg IV Q3H PRN PRN Reason: Pain , Severe (7-10) Last Admin: 04/12/19 03:28 Dose: 1 mg Documented by: Dextrose/Sodium Chloride (D5ns) 1,000 mls @ 100 mls/hr IV DIRECT [facility] Last Admin: 04/12/19 04:22 Dose: 100 mls/hr Documented by: Ampicillin Sodium/Sulbactam Sodium (Unasyn/Ns 3 Gm/100 Ml) 3 gm in 100 mls @ 100 mls/hr IV Q6HR [facility]; Protocol Last Admin: 04/12/19 11:39 Dose: 100 mls/hr Documented by: Vancomycin HCl (Vancomycin/Ns 1 Gm/250 Ml) 1 gm in 250 mls @ 166.667 mls/hr IV Q12H [facility] Last Admin: 04/12/19 12:44 Dose: 166.667 mls/hr Documented by: Metoclopramide HCl (Reglan) 10 mg IV Q6H PRN PRN Reason: Nausea And Vomiting Ondansetron HCl (Zofran) 4 mg IV Q8H PRN PRN Reason: Nausea And Vomiting Last Admin: 04/12/19 03:28 Dose: 4 mg Documented by: Oxycodone HCl (Roxicodone) 15 mg PO Q6H PRN PRN Reason: Pain, Moderate (4-6) Last Admin: 04/12/19 00:07 Dose: 15 mg Documented by: Pantoprazole Sodium (Protonix) 40 mg PO DAILY [facility] Last Admin: 04/12/19 10:15 Dose: 40 mg Documented by: Promethazine HCl (Phenergan) 25 mg WA Q6H PRN PRN Reason: N/V IF NPO AND NO IV ACCESS Promethazine HCl (Phenergan) 25 mg PO Q4H PRN PRN Reason: Nausea And Vomiting Sodium Chloride (Sodium Chloride Flush Syringe 10 Ml) 10 ml IV BID [facility] Last Admin: 04/12/19 10:24 Dose: Not Given Documented by: Sodium Chloride (Sodium Chloride Flush Syringe 10 Ml) 10 ml IV PRN PRN PRN Reason: LINE FLUSH Review of Systems - Constitutional chronic pain, no fever, no chills - Cardiovascular no chest pain - Respiratory no cough, no dyspnea on exertion - Gastrointestinal no abdominal pain, no nausea, no vomiting - Genitourinary no dysuria - Integumentary wounds, foot/leg ulcers - Hematologic/Lymphatic no easy bruising, no easy bleeding Exam Vital Signs Temp Pulse Resp BP Pulse Ox 99.2 F 101 H 18 114/65 94 04/11/19 16:31 04/11/19 16:31 04/11/19 16:31 04/11/19 16:31 04/11/19 16:31 Results - Labs 04/12/19 04:55 04/12/19 04:55 Abnormal lab results 04/11/19 04/11/19 04/11/19 Range/Units 16:35 16:35 21:30 RBC 2.43 L (3.65-5.03) M/mm3 Hgb 7.1 L (11.8-15.2) gm/dl Hct 20.5 L (35.5-45.6) % MCHC 35 H (32-34) % RDW 25.7 H (13.2-15.2) % Seg Neuts % (Manual) 71.0 H (40.0-70.0) % Lymphocytes % (Manual) (13.4-35.0) % Basophils % (Manual) (0.0-1.8) % Nucleated RBC % (0.0-0.9) % Basophils # (Manual) (0.0-0.1) K/mm3 Potassium (3.6-5.0) mmol/L BUN 4 L (9-20) mg/dL Creatinine 0.4 L (0.8-1.5) mg/dL Glucose 110 H (75-100) mg/dL Calcium 8.2 L (8.4-10.2) mg/dL Total Bilirubin 8.80 H (0.1-1.2) mg/dL AST 41 H (5-40) units/L Alkaline Phosphatase 202 H (35-129) units/L Albumin 3.7 L (3.9-5) g/dL Crossmatch See Detail 04/12/19 04/12/19 Range/Units 04:55 04:55 RBC 2.57 L (3.65-5.03) M/mm3 Hgb 7.5 L (11.8-15.2) gm/dl Hct 21.7 L (35.5-45.6) % MCHC 35 H (32-34) % RDW 24.7 H (13.2-15.2) % Seg Neuts % (Manual) 34.0 L (40.0-70.0) % Lymphocytes % (Manual) 56.0 H (13.4-35.0) % Basophils % (Manual) 4.0 H (0.0-1.8) % Nucleated RBC % 4.0 H (0.0-0.9) % Basophils # (Manual) 0.3 H (0.0-0.1) K/mm3 Potassium 3.4 L (3.6-5.0) mmol/L BUN 4 L (9-20) mg/dL Creatinine 0.3 L (0.8-1.5) mg/dL Glucose 106 H (75-100) mg/dL Calcium 7.8 L (8.4-10.2) mg/dL Total Bilirubin 7.90 H (0.1-1.2) mg/dL AST (5-40) units/L Alkaline Phosphatase 182 H (35-129) units/L Albumin 3.2 L (3.9-5) g/dL Crossmatch Diabetes panel 04/11/19 04/11/19 04/12/19 Range/Units 16:35 16:35 04:55 Sodium 138 140 (137-145) mmol/L Potassium 3.6 3.4 L (3.6-5.0) mmol/L Chloride 103.4 104.1 (98-107) mmol/L Carbon Dioxide 24 27 (22-30) mmol/L BUN 4 L 4 L (9-20) mg/dL Creatinine 0.4 L 0.3 L (0.8-1.5) mg/dL Glucose 110 H 106 H (75-100) mg/dL Hemoglobin A1c < 4.2 (4-6) % Calcium 8.2 L 7.8 L (8.4-10.2) mg/dL AST 41 H 37 (5-40) units/L ALT 21 20 (7-56) units/L Alkaline Phosphatase 202 H 182 H (35-129) units/L Total Protein 7.6 6.9 (6.3-8.2) g/dL Albumin 3.7 L 3.2 L (3.9-5) g/dL Calcium panel 04/11/19 04/12/19 Range/Units 16:35 04:55 Calcium 8.2 L 7.8 L (8.4-10.2) mg/dL Albumin 3.7 L 3.2 L (3.9-5) g/dL Pituitary panel 04/11/19 04/12/19 Range/Units 16:35 04:55 Sodium 138 140 (137-145) mmol/L Potassium 3.6 3.4 L (3.6-5.0) mmol/L Chloride 103.4 104.1 (98-107) mmol/L Carbon Dioxide 24 27 (22-30) mmol/L BUN 4 L 4 L (9-20) mg/dL Creatinine 0.4 L 0.3 L (0.8-1.5) mg/dL Glucose 110 H 106 H (75-100) mg/dL Calcium 8.2 L 7.8 L (8.4-10.2) mg/dL Adrenal panel 04/11/19 04/12/19 Range/Units 16:35 04:55 Sodium 138 140 (137-145) mmol/L Potassium 3.6 3.4 L (3.6-5.0) mmol/L Chloride 103.4 104.1 (98-107) mmol/L Carbon Dioxide 24 27 (22-30) mmol/L BUN 4 L 4 L (9-20) mg/dL Creatinine 0.4 L 0.3 L (0.8-1.5) mg/dL Glucose 110 H 106 H (75-100) mg/dL Calcium 8.2 L 7.8 L (8.4-10.2) mg/dL Total Bilirubin 8.80 H 7.90 H (0.1-1.2) mg/dL AST 41 H 37 (5-40) units/L ALT 21 20 (7-56) units/L Alkaline Phosphatase 202 H 182 H (35-129) units/L Total Protein 7.6 6.9 (6.3-8.2) g/dL Albumin 3.7 L 3.2 L (3.9-5) g/dL Assessment and Plan - Patient Problems (1) Ischemic ulcer of right ankle with fat layer exposed Current Visit: Yes Status: Chronic Plan to address problem: Pt stable. Patient in need of antibiotics to address his MRSA infection. Patient just had his wounds addressed on Sunday. No dressing changes need to be done over the weekend. Wound care team will see him on Sunday. Patient may be discharged whenever cleared by infectious disease. We agree with the decision for transfusion. Anemia will contribute to poor wound healing. We will follow along peripherally. Please call with questions Time = 20 minutes (2) Ischemic ulcer of left ankle with fat layer exposed Current Visit: Yes Status: Chronic
--- NOTE | 2019-04-12 14:05 | Progress Note ---
Assessment and Plan 33-year-old -[place] male with history of sickle cell disease and chronic bilateral right ankle ulcers sent from wound clinic for MRSA positive right ankle and left ankle ulcers for treatment. Patient was apparently on Zyvox 600 mg twice a day. Patient has right ankle ulcer of 7.8 cm 3 cm 0.5 cm with purulent discharge on the medial aspect. Patient also has 7 cm 3 cm 0.5 cm on the left medial part of ankle. Patient sent for further wound care and antibiotics. No fever or chills. Wounds have been dressed on both ankles . Pain is about 6 on a scale of 1-10 Advance Directives: Yes (full code) VTE prophylaxis?: Chemical Plan of care discussed with patient/family: Yes - Patient Problems (1) Postphlebitic ankle ulcer Current Visit: Yes Status: Acute Plan to address problem: Patient has bilateral ankle ulcers on the medial aspects with purulent drainage. Cultures grew MRSA Wound cultures to be sent In the meantime patient is started on IV vancomycin and IV Unasyn. Patient was on Zyvox before but will defer to ID Wound care consult Surgical care consult Pain management (2) Sickle cell disease Current Visit: Yes Status: Chronic Qualifiers: Sickle-cell associated disorders: without crisis Qualified Code(s): D57.1 - Sickle-cell disease without crisis Plan to address problem: IV normal saline and pain control (3) Anemia Current Visit: Yes Status: Chronic Qualifiers: Anemia type: unspecified type Qualified Code(s): D64.9 - Anemia, unspecified Plan to address problem: Secondary to sickle cell disease We will transfuse 1 unit of packed red blood cells for better healing of the ulcer. Hemoglobin is 7.1 (4) Malnutrition Current Visit: Yes Status: Acute Qualifiers: Protein-calorie malnutrition severity: mild Plan to address problem: Jenni this is mild Dietary supplements ordered (5) Transaminitis Current Visit: Yes Status: Acute Plan to address problem: Mild Check hepatitis profile Possible fatty liver (6) DVT prophylaxis Current Visit: Yes Status: Acute Plan to address problem: On Lovenox and GI prophylaxis Subjective Date of service: 04/12/19 Principal diagnosis: chronic ulcer in the LEs, SICKLE CELL DISEASE, Interval history: Patient seen and examined. No new complaints. Denies any fever. Objective - Exam Narrative Exam: Constitutional: Well-nourished well-developed. In no distress Head: Normocephalic atraumatic Eyes: Pupils are equal round and reactive to light Nose: No enlarged turbinates, no septal deviation. Mouth: Moist mucous membranes. Neck: Supple no thyromegaly. No bruit. No JVD Heart: Regular rate and rhythm, S1-S2 normal. No rubs murmurs or gallop Lungs: Clear to auscultation bilaterally. no rales or rhonchi Abdomen: Soft, nontender. Bowel sound are present. Extremities: Dry dressing in both lower extremities No edema, no cyanosis, no clubbing. Neuro: Alert oriented Oriented x3. No focal sensory or motor deficit. Skin: No rashes or hyperpigmented spots Musculoskeletal system: No joint pain or swelling Hematological: No petechia or subcutanous hemorrhages. Immunological: No multiple septic spots on the skin Lymphatic: No generalized lymphadenopathy Psychiatry: Euthymic. Calm. - Constitutional Vitals: Vital Signs - 12hr 04/12/19 04/12/19 04/12/19 02:22 02:25 02:53 Temperature 97.8 F 98.7 F 98.5 F Pulse Rate 72 74 80 Respiratory 20 18 20 Rate Blood Pressure 120/70 120/72 150/70 O2 Sat by Pulse 96 94 96 Oximetry 04/12/19 04/12/19 04/12/19 02:55 03:25 03:55 Temperature 98.5 F 98.2 F 98.4 F Pulse Rate 80 92 H 90 Respiratory 20 20 18 Rate Blood Pressure 150/70 143/65 140/60 O2 Sat by Pulse 96 94 96 Oximetry 04/12/19 04/12/19 03:59 12:22 Temperature 98.4 F 97.8 F Pulse Rate 86 60 Respiratory 20 16 Rate Blood Pressure 136/68 112/80 O2 Sat by Pulse 97 Oximetry - Labs CBC & Chem 7: 04/12/19 04:55 04/12/19 04:55 Labs: Abnormal lab results 04/11/19 04/11/19 04/11/19 Range/Units 16:35 16:35 21:30 RBC 2.43 L (3.65-5.03) M/mm3 Hgb 7.1 L (11.8-15.2) gm/dl Hct 20.5 L (35.5-45.6) % MCHC 35 H (32-34) % RDW 25.7 H (13.2-15.2) % Seg Neuts % (Manual) 71.0 H (40.0-70.0) % Lymphocytes % (Manual) (13.4-35.0) % Basophils % (Manual) (0.0-1.8) % Nucleated RBC % (0.0-0.9) % Basophils # (Manual) (0.0-0.1) K/mm3 Potassium (3.6-5.0) mmol/L BUN 4 L (9-20) mg/dL Creatinine 0.4 L (0.8-1.5) mg/dL Glucose 110 H (75-100) mg/dL Calcium 8.2 L (8.4-10.2) mg/dL Total Bilirubin 8.80 H (0.1-1.2) mg/dL AST 41 H (5-40) units/L Alkaline Phosphatase 202 H (35-129) units/L Albumin 3.7 L (3.9-5) g/dL Crossmatch See Detail 04/12/19 04/12/19 Range/Units 04:55 04:55 RBC 2.57 L (3.65-5.03) M/mm3 Hgb 7.5 L (11.8-15.2) gm/dl Hct 21.7 L (35.5-45.6) % MCHC 35 H (32-34) % RDW 24.7 H (13.2-15.2) % Seg Neuts % (Manual) 34.0 L (40.0-70.0) % Lymphocytes % (Manual) 56.0 H (13.4-35.0) % Basophils % (Manual) 4.0 H (0.0-1.8) % Nucleated RBC % 4.0 H (0.0-0.9) % Basophils # (Manual) 0.3 H (0.0-0.1) K/mm3 Potassium 3.4 L (3.6-5.0) mmol/L BUN 4 L (9-20) mg/dL Creatinine 0.3 L (0.8-1.5) mg/dL Glucose 106 H (75-100) mg/dL Calcium 7.8 L (8.4-10.2) mg/dL Total Bilirubin 7.90 H (0.1-1.2) mg/dL AST (5-40) units/L Alkaline Phosphatase 182 H (35-129) units/L Albumin 3.2 L (3.9-5) g/dL Crossmatch
--- NOTE | 2019-04-12 17:59 | Consultation ---
History of Present Illness - Reason for Consult Consult date: 04/12/19 MRSA infection, ulcers Requesting physician: TANA POWELL - History of Present Illness The patient is a 33 y/o male with history of SCD follows at [place] and chronic bilateral ankle edema and ulcers follows at [facility] Wound Care. Apparently, ulcers started ~3 years ago and despite wound care and several courses of oral antibiotics ulcers have not completely healed. Patient follows with Dr. Ha in the ID clinic. More recently, seen in ID clinic on 03/27/2019. Reportedly had worsening periwound erythema edema and tenderness as well as increasing drainage bilateral but right more than left. He saw [facility] wound care clinic and cultures obtained showed MRSA resistant to Bactrim and sens to tetracycline. Patient has previously failed multiple rounds of doxycycline. So Zyvox was prescribed, but was denied by his insurance company. IV Oritavancin was recommended, but was denied by his insurance because he didn't have 3 documented fail attempts with vancomycin. He was ultimately sent for admission. The only complaint is pain in bilateral lower extremities. Review of Systems: General: no fevers,chills or rigors HEENT: no new visual disturbance Respiratory: No cough, sputum, hemoptysis or shortness of breath Cardiovascular: No chest pain, syncope Gastrointestinal: No nausea, vomiting or diarrhea Genitourinary: No dysuria or hematuria Musculoskeletal: No new or worsening neck pain or back pain Neurologic: No headaches, seizures Hematologic: No easy bruising or bleeding Endocrine: No night sweats or acute weight loss Skin: negative for rash, jaundice Psychiatric: No suicidal or homicidal ideation Past History Past Medical History: GERD, other (sickle cell disease; neuropathy) Past Surgical History: cholecystectomy, Other (bilateral ankle ulcers with recurrent debridement and wound care.; Serial ERCPs due to SCD) Social history: lives with family, full code. denies: smoking, alcohol abuse Family history: hypertension Medications and Allergies Allergies Allergy/AdvReac Type Severity Reaction Status Date / Time zinc AdvReac Severe Rash Verified 02/08/16 09:18 Home Medications Medication Instructions Recorded Confirmed Last Taken Type Folic Acid 1 mg PO DAILY 04/11/19 04/11/19 04/10/19 History 1 MG Omeprazole 40 mg PO DAILY 04/11/19 04/11/19 04/10/19 History 40 MG Phenergan 25 mg PO Q4H PRN 04/11/19 04/11/19 04/10/19 History 25 MG oxyCONTIN ER 15 mg PO Q6H PRN 04/11/19 04/11/19 04/10/19 History 15 MG oxyCONTIN ER 40 mg PO Q12H 04/11/19 04/11/19 04/10/19 History 40 MG Active Meds: Active Medications Acetaminophen (Tylenol) 650 mg PO Q4H PRN PRN Reason: Pain MILD(1-3)/Fever >100.5/RODRIGUEZ Al Hydrox/Mg Hydrox/Simethicone (Alum-Mag Hydrox-Simeth [id number]/5ml) 30 ml PO Q4H PRN PRN Reason: Indigestion Bisacodyl (Dulcolax) 10 mg SD QDAY PRN PRN Reason: Constipation unrelieved by MOM Enoxaparin Sodium (Lovenox) 40 mg SUB-Q QDAY@2200 [facility] Last Admin: 04/11/19 22:02 Dose: 40 mg Documented by: Folic Acid (Folvite) 1 mg PO DAILY [facility] Last Admin: 04/12/19 10:15 Dose: 1 mg Documented by: Hydromorphone HCl (Dilaudid) 1 mg IV Q3H PRN PRN Reason: Pain , Severe (7-10) Last Admin: 04/12/19 13:21 Dose: 1 mg Documented by: Dextrose/Sodium Chloride (D5ns) 1,000 mls @ 100 mls/hr IV DIRECT [facility] Last Admin: 04/12/19 04:22 Dose: 100 mls/hr Documented by: Vancomycin HCl (Vancomycin/Ns 1 Gm/250 Ml) 1 gm in 250 mls @ 166.667 mls/hr IV Q12H [facility] Last Admin: 04/12/19 12:44 Dose: 166.667 mls/hr Documented by: Metoclopramide HCl (Reglan) 10 mg IV Q6H PRN PRN Reason: Nausea And Vomiting Ondansetron HCl (Zofran) 4 mg IV Q8H PRN PRN Reason: Nausea And Vomiting Last Admin: 04/12/19 13:46 Dose: 4 mg Documented by: Oxycodone HCl (Roxicodone) 15 mg PO Q6H PRN PRN Reason: Pain, Moderate (4-6) Last Admin: 04/12/19 00:07 Dose: 15 mg Documented by: Pantoprazole Sodium (Protonix) 40 mg PO DAILY [facility] Last Admin: 04/12/19 10:15 Dose: 40 mg Documented by: Promethazine HCl (Phenergan) 25 mg SD Q6H PRN PRN Reason: N/V IF NPO AND NO IV ACCESS Promethazine HCl (Phenergan) 25 mg PO Q4H PRN PRN Reason: Nausea And Vomiting Sodium Chloride (Sodium Chloride Flush Syringe 10 Ml) 10 ml IV BID [facility] Last Admin: 04/12/19 10:24 Dose: Not Given Documented by: Sodium Chloride (Sodium Chloride Flush Syringe 10 Ml) 10 ml IV PRN PRN PRN Reason: LINE FLUSH Physical Examination - Physical Exam Narrative exam: Physical Exam: Constitutional: Alert, cooperative. No acute distress Head, Ears, Nose: Normocephalic, atraumatic. External ears, nose normal Eyes: Conjunctivae/corneas clear. No icterus. No ptosis. Neck: Supple, no meningeal signs Oral: dentition fair, no thrush Cardiovascular: S1, S2 normal. Respiratory: Good air entry, clear to auscultation bilaterally GI: Soft, non-tender; bowel sounds normal. No peritoneal signs Musculoskeletal: Bilateral lower extremities in dressings Skin: No rash or abscess Hem/Lymphatic: No palpable cervical or supraclavicular nodes. No lymphangitis Psych: Mood ok. Affect normal Neurological: Awake, alert, oriented. No gross abnormality - Constitutional Vitals: Vital Signs Temp Pulse Resp BP Pulse Ox 97.7 F 73 18 110/54 96 04/12/19 16:57 04/12/19 16:57 04/12/19 16:57 04/12/19 16:57 04/12/19 16:57 Temperature -Last 24 Hours Temperature 97.7 F Temperature 97.8 F Temperature 98.4 F Temperature 98.4 F Temperature 98.2 F Temperature 98.5 F Temperature 98.5 F Temperature 98.7 F Temperature 97.8 F Temperature 97.9 F Temperature 98.3 F Temperature 98.5 F Results - Labs CBC & Chem 7: 04/12/19 04:55 04/12/19 04:55 Labs: Abnormal lab results 04/11/19 04/11/19 04/12/19 Range/Units 16:35 21:30 04:55 RBC 2.57 L (3.65-5.03) M/mm3 Hgb 7.5 L (11.8-15.2) gm/dl Hct 21.7 L (35.5-45.6) % MCHC 35 H (32-34) % RDW 24.7 H (13.2-15.2) % Seg Neuts % (Manual) 71.0 H 34.0 L (40.0-70.0) % Lymphocytes % (Manual) 56.0 H (13.4-35.0) % Basophils % (Manual) 4.0 H (0.0-1.8) % Nucleated RBC % 4.0 H (0.0-0.9) % Basophils # (Manual) 0.3 H (0.0-0.1) K/mm3 Potassium (3.6-5.0) mmol/L BUN (9-20) mg/dL Creatinine (0.8-1.5) mg/dL Glucose (75-100) mg/dL Calcium (8.4-10.2) mg/dL Total Bilirubin (0.1-1.2) mg/dL Alkaline Phosphatase (35-129) units/L Albumin (3.9-5) g/dL Crossmatch See Detail 04/12/19 Range/Units 04:55 RBC (3.65-5.03) M/mm3 Hgb (11.8-15.2) gm/dl Hct (35.5-45.6) % MCHC (32-34) % RDW (13.2-15.2) % Seg Neuts % (Manual) (40.0-70.0) % Lymphocytes % (Manual) (13.4-35.0) % Basophils % (Manual) (0.0-1.8) % Nucleated RBC % (0.0-0.9) % Basophils # (Manual) (0.0-0.1) K/mm3 Potassium 3.4 L (3.6-5.0) mmol/L BUN 4 L (9-20) mg/dL Creatinine 0.3 L (0.8-1.5) mg/dL Glucose 106 H (75-100) mg/dL Calcium 7.8 L (8.4-10.2) mg/dL Total Bilirubin 7.90 H (0.1-1.2) mg/dL Alkaline Phosphatase 182 H (35-129) units/L Albumin 3.2 L (3.9-5) g/dL Crossmatch Assessment and Plan Cultures: 03/20/2019 wound culture: MRSA, resistant to Bactrim A/P: 33 y/o male with history of SCD and chronic b/l LE ulcers: 1) Bilateral lower extremity cellulitis with infected ulcers secondary to MRSA: He has failed multiple rounds of oral doxycycline in the past. Isolate is Bactrim resistant. Zyvox was prescribed as outpatient, but prior-auth was denied by his insurance company. IV Oritavancin was then prescribed, but was denied by his insurance because he didn't have 3 documented fail attempts with vancomycin. X-ray of ankle reviewed, shows no concerns for osteomyelitis. 2) Sickle cell disease: Stable. Recs: Continue IV vancomycin, target vancomycin trough between 10-20 g per mL Unasyn discontinued He will need a PICC line and set up for IV vancomycin at home Continue wound care Radha Moon MD, FACP [facility] ([facility]) C: [phone] O: [phone] F: [phone]
[2019-04-13] MEDS: LOVENOX SUB-Q SCH ×2 (00:24→22:38)
--- NOTE | 2019-04-13 01:29 | Event Note ---
Date: 04/13/19 Pt int infiltrated during the day shift. Dayshift nurse made multiple attempts to regain IV access and was not successful. field artillery operations specialist nurse attempted x4 to gain IV access and was not successful. Pt did not receive midnight dose of vancomycin. Called and spoke with pharmacist to find out if there was an oral substitution until IV access was regained. Unfortunately there is no oral substitution because patient failed therapy on doxycycline. Order placed for PICC.
[2019-04-13] MEDS: VANCOMYCIN/NS 1 GM/250 ML 1 GM/250 ML BAG IV SCH ×2 (02:41→13:50)
[2019-04-13] MEDS: ROXICODONE PO PRN ×2 (03:00→10:39)
[2019-04-13] MEDS: D5NS 1,000 ML IV SCH (04:59)
[2019-04-13 05:26] LABS: Hematocrit 22.7 % (35.5-45.6); Hemoglobin 7.8 gm/dl (11.8-15.2); Mean Corpuscular HGB Conc 34 % (32-34); Mean Corpuscular Volume 85 fl (84-94); Platelet Count 250 K/mm3 (140-440); Red Blood Count 2.67 M/mm3 (3.65-5.03)
[2019-04-13 05:27] LABS: Red Cell Distribution Width 24.9 % (13.2-15.2)
[2019-04-13 05:46] LABS: Alanine Aminotransferase 20 units/L (7-56); Albumin 3.2 g/dL (3.9-5); BUN/Creatinine Ratio 13; Blood Urea Nitrogen 5 mg/dL (9-20); Hemolysis Index 16
[2019-04-13 07:49] LABS: Total Cells Counted 100
[2019-04-13 07:50] LABS: Anisocytosis 1+; Hypochromasia 1+; Sickle Cells 1+; Target Cells Few
[2019-04-13 07:51] LABS: Platelet Estimate Consistent w Auto; Poikilocytosis 1+
[2019-04-13] MEDS: FOLVITE PO SCH (10:38)
[2019-04-13] MEDS: PROTONIX PO SCH (10:38)
[2019-04-13] MEDS: SODIUM CHLORIDE FLUSH SYRINGE 10 ML IV SCH ×2 (10:43→22:37)
--- NOTE | 2019-04-13 12:07 | Progress Note ---
Assessment and Plan Cultures: 03/20/2019 wound culture: MRSA, resistant to Bactrim A/P: 33 y/o male with history of SCD and chronic b/l LE ulcers: 1) Bilateral lower extremity cellulitis with infected ulcers secondary to MRSA: He has failed multiple rounds of oral doxycycline in the past. Isolate is Bactri m resistant. Zyvox was prescribed as outpatient, but prior-auth was denied by his insurance company. IV Oritavancin was then prescribed, but was denied by his insurance because he didn't have 3 documented fail attempts with vancomycin. X- ray of ankle reviewed, shows no concerns for osteomyelitis. 2) Sickle cell disease: Stable. Recs: PICC line ordered Continue IV vancomycin, target vancomycin trough between 10-20 g per mL, duration: 2 weeks Continue wound care Final case management orders to be placed once vancomycin dose is finalized based on his levels Radha Moon MD, FACP [facility] ([facility]) C: [phone] O: [phone] F: [phone] Subjective Date of service: 04/13/19 Principal diagnosis: chronic ulcer in the LEs, SICKLE CELL DISEASE, Interval history: Denies any complaints. No fever. Discussed PICC line and IV vancomycin at home. Objective - Exam Narrative Exam: Physical Exam: Constitutional: Alert, cooperative. No acute distress Head, Ears, Nose: Normocephalic, atraumatic. External ears, nose normal Eyes: Conjunctivae/corneas clear. No icterus. No ptosis. Neck: Supple, no meningeal signs Cardiovascular: S1, S2 normal. Respiratory: Good air entry, clear to auscultation bilaterally GI: Soft, non-tender; bowel sounds normal. No peritoneal signs Musculoskeletal: Bilateral lower extremities in dressings Skin: No rash or abscess Hem/Lymphatic: No palpable cervical or supraclavicular nodes. No lymphangitis Psych: Mood ok. Affect normal Neurological: Awake, alert, oriented. No gross abnormality - Constitutional Vitals: Vital Signs Temp Pulse Resp BP Pulse Ox 97.3 F L 75 20 91/48 94 04/13/19 04:44 04/13/19 04:44 04/13/19 04:44 04/13/19 04:44 04/13/19 04:44 Temperature -Last 24 Hours Temperature 97.3 F Temperature 97.1 F Temperature 97.7 F Temperature 97.8 F - Labs CBC & Chem 7: 04/13/19 04:51 04/13/19 04:51 Labs: Abnormal lab results 04/13/19 04/13/19 Range/Units 04:51 04:51 RBC 2.67 L (3.65-5.03) M/mm3 Hgb 7.8 L (11.8-15.2) gm/dl Hct 22.7 L (35.5-45.6) % RDW 24.9 H (13.2-15.2) % Basophils % (Manual) 5.0 H (0.0-1.8) % Nucleated RBC % 1.0 H (0.0-0.9) % Basophils # (Manual) 0.4 H (0.0-0.1) K/mm3 BUN 5 L (9-20) mg/dL Creatinine 0.4 L (0.8-1.5) mg/dL Glucose 115 H (75-100) mg/dL Calcium 8.0 L (8.4-10.2) mg/dL Total Bilirubin 7.60 H (0.1-1.2) mg/dL AST 41 H (5-40) units/L Alkaline Phosphatase 182 H (35-129) units/L Albumin 3.2 L (3.9-5) g/dL
[2019-04-13] MEDS: DILAUDID IV PRN ×2 (14:42→19:41)
--- NOTE | 2019-04-13 22:05 | Progress Note ---
Assessment and Plan 33-year-old -[place] male with history of sickle cell disease and chronic bilateral right ankle ulcers sent from wound clinic for MRSA positive right ankle and left ankle ulcers for treatment. Patient was apparently on Zyvox 600 mg twice a day. Patient has right ankle ulcer of 7.8 cm 3 cm 0.5 cm with purulent discharge on the medial aspect. Patient also has 7 cm 3 cm 0.5 cm on the left medial part of ankle. Patient sent for further wound care and antibiotics. No fever or chills. Wounds have been dressed on both ankles . Pain is about 6/10. Advance Directives: Yes (full code) VTE prophylaxis?: Chemical Plan of care discussed with patient/family: Yes - Patient Problems (1) Postphlebitic ankle ulcer Current Visit: Yes Status: Acute Plan to address problem: Patient has bilateral ankle ulcers on the medial aspects with purulent drainage. Cultures grew MRSA Wound cultures to be sent In the meantime patient is started on IV vancomycin and IV Unasyn. Patient was on Zyvox before but will defer to ID Wound care consult Surgical care consult Pain management (2) Sickle cell disease - stable Current Visit: Yes Status: Chronic Qualifiers: Sickle-cell associated disorders: without crisis Qualified Code(s): D57.1 - Sickle-cell disease without crisis Plan to address problem: IV normal saline and pain control (3) Anemia Current Visit: Yes Status: Chronic Qualifiers: Anemia type: unspecified type Qualified Code(s): D64.9 - Anemia, unspecified Plan to address problem: Secondary to sickle cell disease (4) Malnutrition Current Visit: Yes Status: Acute Qualifiers: Protein-calorie malnutrition severity: mild Plan to address problem: Dietary supplements ordered (5) Transaminitis Current Visit: Yes Status: Acute Plan to address problem: Mild Check hepatitis profile Possible fatty liver (6) DVT prophylaxis Current Visit: Yes Status: Acute Plan to address problem: On Lovenox and GI prophylaxis Subjective Date of service: 04/13/19 Principal diagnosis: chronic ulcer in the LEs, SICKLE CELL DISEASE, Interval history: Patient seen and examined. No new complaints. Denies any fever. No bone pains Objective - Exam Narrative Exam: Constitutional: Well-nourished well-developed. In no distress Head: Normocephalic atraumatic Eyes: Pupils are equal round and reactive to light Nose: No enlarged turbinates, no septal deviation. Mouth: Moist mucous membranes. Neck: Supple no thyromegaly. No bruit. No JVD Heart: Regular rate and rhythm, S1-S2 normal. No rubs murmurs or gallop Lungs: Clear to auscultation bilaterally. no rales or rhonchi Abdomen: Soft, nontender. Bowel sound are present. Extremities: Dry dressing in both lower extremities. No edema, no cyanosis, no clubbing. Neuro: Alert oriented Oriented x3. No focal sensory or motor deficit. Skin: No rashes or hyperpigmented spots Musculoskeletal system: No joint pain or swelling Hematological: No petechia or subcutanous hemorrhages. Immunological: No multiple septic spots on the skin Lymphatic: No generalized lymphadenopathy Psychiatry: Euthymic. Calm. - Constitutional Vitals: Vital Signs - 12hr 04/13/19 04/13/19 12:30 18:15 Temperature 98.2 F 98.9 F Pulse Rate 77 77 Respiratory 18 18 Rate Blood Pressure 129/64 118/67 O2 Sat by Pulse 94 96 Oximetry - Labs CBC & Chem 7: 04/13/19 04:51 04/13/19 04:51 Labs: Abnormal lab results 04/13/19 04/13/19 Range/Units 04:51 04:51 RBC 2.67 L (3.65-5.03) M/mm3 Hgb 7.8 L (11.8-15.2) gm/dl Hct 22.7 L (35.5-45.6) % RDW 24.9 H (13.2-15.2) % Basophils % (Manual) 5.0 H (0.0-1.8) % Nucleated RBC % 1.0 H (0.0-0.9) % Basophils # (Manual) 0.4 H (0.0-0.1) K/mm3 BUN 5 L (9-20) mg/dL Creatinine 0.4 L (0.8-1.5) mg/dL Glucose 115 H (75-100) mg/dL Calcium 8.0 L (8.4-10.2) mg/dL Total Bilirubin 7.60 H (0.1-1.2) mg/dL AST 41 H (5-40) units/L Alkaline Phosphatase 182 H (35-129) units/L Albumin 3.2 L (3.9-5) g/dL
[2019-04-14] MEDS: VANCOMYCIN/NS 1 GM/250 ML 1 GM/250 ML BAG IV SCH (00:01)
[2019-04-14] MEDS: DILAUDID IV PRN ×5 (00:01→20:35)
[2019-04-14] MEDS: ZOFRAN IV PRN (00:02)
[2019-04-14] MEDS: D5NS 1,000 ML IV SCH ×2 (05:11→16:44)
[2019-04-14 05:33] LABS: Hematocrit 23.1 % (35.5-45.6); Hemoglobin 7.8 gm/dl (11.8-15.2); Mean Corpuscular HGB Conc 34 % (32-34); Mean Corpuscular Volume 86 fl (84-94); Platelet Count 258 K/mm3 (140-440); Red Blood Count 2.68 M/mm3 (3.65-5.03)
[2019-04-14 05:59] LABS: Alanine Aminotransferase 18 units/L (7-56); Albumin 3.3 g/dL (3.9-5); BUN/Creatinine Ratio 10; Blood Urea Nitrogen 4 mg/dL (9-20); Calcium 8.1 mg/dL (8.4-10.2); Hemolysis Index 1
[2019-04-14 06:28] LABS: Total Cells Counted 100
[2019-04-14 06:29] LABS: Anisocytosis 2+; Poikilocytosis 2+
[2019-04-14 06:30] LABS: Ovalocytes 1+; Sickle Cells Few; Target Cells Few; Tear Drop Cells 1+
[2019-04-14 06:31] LABS: Platelet Estimate Consistent w Auto
[2019-04-14] MEDS: FOLVITE PO SCH (11:18)
[2019-04-14] MEDS: VANCOMYCIN 1,250 MG in NACL 0.9% 250ML 250 ML IV SCH (11:18)
[2019-04-14] MEDS: PROTONIX PO SCH (11:19)
[2019-04-14] MEDS: SODIUM CHLORIDE FLUSH SYRINGE 10 ML IV SCH (11:19)
--- NOTE | 2019-04-14 12:06 | Progress Note ---
Assessment and Plan Cultures: 03/20/2019 wound culture: MRSA, resistant to Bactrim A/P: 33 y/o male with history of SCD and chronic b/l LE ulcers: 1) Bilateral lower extremity cellulitis with infected ulcers secondary to MRSA: He has failed multiple rounds of oral doxycycline in the past. Isolate is Bactri m resistant. Zyvox was prescribed as outpatient, but prior-auth was denied by his insurance company. IV Oritavancin was then prescribed, but was denied by his insurance because he didn't have 3 documented fail attempts with vancomycin. X- ray of ankle reviewed, shows no concerns for osteomyelitis. 2) Sickle cell disease: Stable. Recs: Continue IV vancomycin 1250 mg q12 hrs, target vancomycin trough between 10-20 g per mL, duration: 2 weeks Continue wound care Final case management orders placed F/U with Dr. Ha in ID clinic OK for discharge once PICC line is placed and abx arranged. D/W Dr. Shepherd. Radha Moon MD, FACP [facility] ([facility]) C: [phone] O: [phone] F: [phone] Subjective Date of service: 04/14/19 Principal diagnosis: chronic ulcer in the LEs, SICKLE CELL DISEASE, Interval history: Denies any complaints. No fever. No pain. Agreeable to do IV Vancomycin at home x 2 weeks. Still awaiting PICC line. Objective - Exam Narrative Exam: Physical Exam: Constitutional: Alert, cooperative. No acute distress Head, Ears, Nose: Normocephalic, atraumatic. External ears, nose normal Eyes: Conjunctivae/corneas clear. No icterus. No ptosis. Neck: Supple, no meningeal signs Cardiovascular: S1, S2 normal. Respiratory: Good air entry, clear to auscultation bilaterally GI: Soft, non-tender; bowel sounds normal. No peritoneal signs Musculoskeletal: Bilateral lower extremities in dressings Skin: No rash or abscess Hem/Lymphatic: No palpable cervical or supraclavicular nodes. No lymphangitis Psych: Mood ok. Affect normal Neurological: Awake, alert, oriented. No gross abnormality - Constitutional Vitals: Vital Signs Temp Pulse Resp BP Pulse Ox 98.1 F 63 20 97/49 95 04/14/19 05:01 04/14/19 05:01 04/14/19 06:10 04/14/19 05:01 04/14/19 05:01 Temperature -Last 24 Hours Temperature 98.1 F Temperature 98.4 F Temperature 98.9 F Temperature 98.2 F - Labs CBC & Chem 7: 04/14/19 05:06 04/14/19 05:06 Labs: Abnormal lab results 04/14/19 04/14/19 Range/Units 05:06 05:06 RBC 2.68 L (3.65-5.03) M/mm3 Hgb 7.8 L (11.8-15.2) gm/dl Hct 23.1 L (35.5-45.6) % RDW 25.0 H (13.2-15.2) % Eosinophils % (Manual) 5.0 H (0.0-4.3) % Basophils % (Manual) 2.0 H (0.0-1.8) % Nucleated RBC % 3.0 H (0.0-0.9) % Potassium 3.4 L (3.6-5.0) mmol/L Chloride 107.2 H (98-107) mmol/L BUN 4 L (9-20) mg/dL Creatinine 0.4 L (0.8-1.5) mg/dL Calcium 8.1 L (8.4-10.2) mg/dL Total Bilirubin 7.10 H (0.1-1.2) mg/dL Alkaline Phosphatase 177 H (35-129) units/L Albumin 3.3 L (3.9-5) g/dL
--- NOTE | 2019-04-14 17:01 | Progress Note ---
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 Continue routine wound care. Will resume regular care in Wound Clinic after patient discharged. Patient may be discharged whenever cleared by infectious disease. We will follow along peripherally. Please call with questions Time = 10 minutes (2) Ischemic ulcer of left ankle with fat layer exposed Current Visit: Yes Status: Chronic Subjective Date of service: 04/14/19 Patient Reports: Positive: pain is less, other (waiting for placement of PICC and Home Abx arrangements.) Objective Vital Signs - 12hr 04/14/19 04/14/19 04/14/19 05:01 05:40 06:10 Temperature 98.1 F Pulse Rate 63 Respiratory 18 19 20 Rate Blood Pressure 97/49 O2 Sat by Pulse 95 Oximetry - General physical appearance no distress, no pain - Respiratory normal respiratory effort - Integumentary other (wounds are dressed. No drainage. ) - Psychiatric oriented to time, oriented to person, oriented to place, speech is normal, memory intact - Labs 04/14/19 05:06 04/14/19 05:06 Diabetes panel 04/14/19 Range/Units 05:06 Sodium 143 (137-145) mmol/L Potassium 3.4 L (3.6-5.0) mmol/L Chloride 107.2 H (98-107) mmol/L Carbon Dioxide 25 (22-30) mmol/L BUN 4 L (9-20) mg/dL Creatinine 0.4 L (0.8-1.5) mg/dL Glucose 97 (75-100) mg/dL Calcium 8.1 L (8.4-10.2) mg/dL AST 35 (5-40) units/L ALT 18 (7-56) units/L Alkaline Phosphatase 177 H (35-129) units/L Total Protein 7.0 (6.3-8.2) g/dL Albumin 3.3 L (3.9-5) g/dL Calcium panel 04/14/19 Range/Units 05:06 Calcium 8.1 L (8.4-10.2) mg/dL Albumin 3.3 L (3.9-5) g/dL Pituitary panel 04/14/19 Range/Units 05:06 Sodium 143 (137-145) mmol/L Potassium 3.4 L (3.6-5.0) mmol/L Chloride 107.2 H (98-107) mmol/L Carbon Dioxide 25 (22-30) mmol/L BUN 4 L (9-20) mg/dL Creatinine 0.4 L (0.8-1.5) mg/dL Glucose 97 (75-100) mg/dL Calcium 8.1 L (8.4-10.2) mg/dL Adrenal panel 04/14/19 Range/Units 05:06 Sodium 143 (137-145) mmol/L Potassium 3.4 L (3.6-5.0) mmol/L Chloride 107.2 H (98-107) mmol/L Carbon Dioxide 25 (22-30) mmol/L BUN 4 L (9-20) mg/dL Creatinine 0.4 L (0.8-1.5) mg/dL Glucose 97 (75-100) mg/dL Calcium 8.1 L (8.4-10.2) mg/dL Total Bilirubin 7.10 H (0.1-1.2) mg/dL AST 35 (5-40) units/L ALT 18 (7-56) units/L Alkaline Phosphatase 177 H (35-129) units/L Total Protein 7.0 (6.3-8.2) g/dL Albumin 3.3 L (3.9-5) g/dL
--- NOTE | 2019-04-14 20:31 | Progress Note ---
Assessment and Plan 33-year-old -[place] male with history of sickle cell disease and chronic bilateral right ankle ulcers sent from wound clinic for MRSA positive right ankle and left ankle ulcers for treatment. Patient was apparently on Zyvox 600 mg twice a day. Patient has right ankle ulcer of 7.8 cm 3 cm 0.5 cm with purulent discharge on the medial aspect. Patient also has 7 cm 3 cm 0.5 cm on the left medial part of ankle. Patient sent for further wound care and antibiotics. No fever or chills. Wounds have been dressed on both ankles . Pain is about 6/10. Advance Directives: Yes (full code) VTE prophylaxis?: Chemical Plan of care discussed with patient/family: Yes - Patient Problems (1) Bilateral lower extremity cellulitis with infected ulcers secondary to MRSA: Current Visit: Yes Status: Acute Plan to address problem: Patient has bilateral ankle ulcers on the medial aspects with purulent drainage. Cultures grew MRSA Wound cultures to be sent In the meantime patient is started on IV vancomycin and IV Unasyn. Zyvox was prescribed as outpatient, but prior-auth was denied by his insurance company. IV Oritavancin was then prescribed, but was denied by his insurance because he didn't have 3 documented fail attempts with vancomycin. X-ray of ankle reviewed, shows no concerns for osteomyelitis. Wound care consult Surgical care consult Pain management (2) Sickle cell disease - stable Current Visit: Yes Status: Chronic Qualifiers: Sickle-cell associated disorders: without crisis Qualified Code(s): D57.1 - Sickle-cell disease without crisis Plan to address problem: IV normal saline and pain control (3) Anemia Current Visit: Yes Status: Chronic Qualifiers: Anemia type: unspecified type Qualified Code(s): D64.9 - Anemia, unspecified Plan to address problem: Secondary to sickle cell disease (4) Malnutrition Current Visit: Yes Status: Acute Qualifiers: Protein-calorie malnutrition severity: mild Plan to address problem: Dietary supplements ordered (5) Transaminitis - resolved Current Visit: Yes Status: Acute Plan to address problem: Mild Check hepatitis profile Possible fatty liver (6) Hypokalemia Supplement and recheck (7) DVT prophylaxis Current Visit: Yes Status: Acute Plan to address problem: On Lovenox and GI prophylaxis Disposition: PICC line to be place and d/joe home with iv Vanc Subjective Date of service: 04/14/19 Principal diagnosis: chronic ulcer in the LEs, SICKLE CELL DISEASE, Interval history: Patient seen and examined. No new complaints. Denies any fever. No bone pains Objective - Exam Narrative Exam: Constitutional: Well-nourished well-developed. In no distress Head: Normocephalic atraumatic Eyes: Pupils are equal round and reactive to light Nose: No enlarged turbinates, no septal deviation. Mouth: Moist mucous membranes. Neck: Supple no thyromegaly. No bruit. No JVD Heart: Regular rate and rhythm, S1-S2 normal. No rubs murmurs or gallop Lungs: Clear to auscultation bilaterally. no rales or rhonchi Abdomen: Soft, nontender. Bowel sound are present. Extremities: Dry dressing in both lower extremities. No edema, no cyanosis, no clubbing. Neuro: Alert oriented Oriented x3. No focal sensory or motor deficit. Skin: No rashes or hyperpigmented spots Musculoskeletal system: No joint pain or swelling Hematological: No petechia or subcutanous hemorrhages. Immunological: No multiple septic spots on the skin Lymphatic: No generalized lymphadenopathy Psychiatry: Euthymic. Calm. - Constitutional Vitals: Vital Signs - 12hr 04/14/19 04/14/19 13:07 19:17 Temperature 98.3 F 98.1 F Pulse Rate 84 78 Respiratory 18 15 Rate Blood Pressure 100/49 103/61 O2 Sat by Pulse 95 95 Oximetry - Labs CBC & Chem 7: 04/14/19 05:06 04/14/19 05:06 Labs: Abnormal lab results 04/14/19 04/14/19 Range/Units 05:06 05:06 RBC 2.68 L (3.65-5.03) M/mm3 Hgb 7.8 L (11.8-15.2) gm/dl Hct 23.1 L (35.5-45.6) % RDW 25.0 H (13.2-15.2) % Eosinophils % (Manual) 5.0 H (0.0-4.3) % Basophils % (Manual) 2.0 H (0.0-1.8) % Nucleated RBC % 3.0 H (0.0-0.9) % Potassium 3.4 L (3.6-5.0) mmol/L Chloride 107.2 H (98-107) mmol/L BUN 4 L (9-20) mg/dL Creatinine 0.4 L (0.8-1.5) mg/dL Calcium 8.1 L (8.4-10.2) mg/dL Total Bilirubin 7.10 H (0.1-1.2) mg/dL Alkaline Phosphatase 177 H (35-129) units/L Albumin 3.3 L (3.9-5) g/dL
[2019-04-14] MEDS: LOVENOX SUB-Q SCH (21:19)
[2019-04-15] MEDS: VANCOMYCIN 1,250 MG in NACL 0.9% 250ML 250 ML IV SCH ×2 (00:22→14:00)
[2019-04-15] MEDS: SODIUM CHLORIDE FLUSH SYRINGE 10 ML IV SCH ×2 (00:23→12:18)
[2019-04-15] MEDS: DILAUDID IV PRN ×3 (00:35→12:58)
[2019-04-15] MEDS: D5NS 1,000 ML IV SCH ×2 (03:00→12:59)
[2019-04-15 05:57] LABS: Hematocrit 22.8 % (35.5-45.6); Hemoglobin 7.8 gm/dl (11.8-15.2); Mean Corpuscular HGB Conc 34 % (32-34); Mean Corpuscular Volume 87 fl (84-94); Platelet Count 263 K/mm3 (140-440); Red Blood Count 2.63 M/mm3 (3.65-5.03)
[2019-04-15 05:58] LABS: Red Cell Distribution Width 25.2 % (13.2-15.2)
[2019-04-15 06:13] LABS: Alanine Aminotransferase 18 units/L (7-56); Albumin 3.2 g/dL (3.9-5); BUN/Creatinine Ratio 13; Blood Urea Nitrogen 5 mg/dL (9-20); Calcium 8.3 mg/dL (8.4-10.2); Hemolysis Index 12
[2019-04-15 06:49] LABS: Anisocytosis 2+; Total Cells Counted 100
[2019-04-15 06:50] LABS: Ovalocytes 1+; Poikilocytosis 2+; Sickle Cells Few; Target Cells Few
[2019-04-15 06:51] LABS: Platelet Estimate Consistent w Auto; Tear Drop Cells Few
[2019-04-15 11:55] VITALS: BP 99/45
[2019-04-15] MEDS ORDERED: NACL 0.9% 500 ML 500 ML IV ONE (12:04)
[2019-04-15] MEDS: FOLVITE PO SCH (12:17)
[2019-04-15] MEDS: PROTONIX PO SCH (12:17)
--- NOTE | 2019-04-15 13:16 | Discharge Summary ---
Providers - Providers Date of Admission: 04/11/19 16:05 Date of discharge: 04/15/19 Attending physician: JHONY COVARRUBIAS 04/11/19 20:15 Consult to Physician [CONS] Routine Comment: Consulting Provider: REAL GOMEZ Physician Instructions: Reason For Exam: bilateral ankle ulcers with MRSA 04/11/19 20:24 Consult to Physician [CONS] Routine Comment: Consulting Provider: STEVE SALOMON Physician Instructions: Reason For Exam: bilateral ankle ulcers with MRSA 04/11/19 21:19 Consult to Wound/ET Nurse [CONS] Routine Reason For Exam: wound eval 04/13/19 12:08 Consult to PICC Line RN [CONS] Routine Reason For Exam: PICC line for IV vancomycin Type Line:: PICC 04/14/19 11:52 Consult to Case Management [CONS] Routine Services Needed at Discharge: Other Notified:: copy given to cm Comment:: IV Vancomycin x 2 weeks Additional Physician Instructions: [facility] ([facility]) O: [phone] F: [phone] OUTPATIENT PARENTERAL ANTIBIOTIC THERAPY (OPAT) ORDERS Diagnoses: MRSA wound infection, cellulitis Antimicrobial administration: IV Vancomycin 1250 mg q12hrs x 2 weeks ending 04/28/2019 Lines: Maintain IV access with weekly dressing changes and locks per protocol. Lab monitoring: - CBC with differential, Creatinine, ALT, AST, Vancomycin trough, ESR, CRP once a week every Sunday while on IV antibiotics. Please fax results to [phone] and call [phone] for critical lab results. Radha Moon MD, FACP [facility] Primary care physician: [facility] EULA CACERES MD Hospitalization Condition: Good Hospital course: Patient 33-year-old with a history of sickle cell disease bilateral chronic ankle ulcers. Tested positive for MRSA. Patient was initially treated with Zyvox 600 mg. Failed outpatient drug therapy. Presented with worsening bilateral heel ulcers ankle ulcers 7.83 cm. Patient brought in treated with vancomycin. ID consult decided vancomycin 2 weeks. 4 cellulitis. Patient had outpatient workup set up and also PICC line was also set up the patient have patient has wound care of the PICC line site does also been established. Patient stable to discharge on home antibiotics with vancomycin 2 weeks. Follow-up will be done with infectious disease. Disposition: DC-01 TO HOME OR SELFCARE - Discharge Diagnoses (1) Cellulitis Status: Acute (2) Atherosclerosis of both lower extremities with bilateral ulceration of ankles Status: Acute (3) Malnutrition Status: Acute Qualifiers: Protein-calorie malnutrition severity: mild (4) Anemia Status: Chronic Qualifiers: Anemia type: unspecified type Qualified Code(s): D64.9 - Anemia, unspecified (5) Sickle cell disease Status: Chronic Qualifiers: Sickle-cell associated disorders: without crisis Qualified Code(s): D57.1 - Sickle-cell disease without crisis Core Measure Documentation - Palliative Care Palliative Care/ Comfort Measures: Not Applicable - Core Measures Any of the following diagnoses?: none Exam - Constitutional Vitals: Temp Pulse Resp BP Pulse Ox 98.3 F 74 18 99/45 95 04/15/19 11:48 04/15/19 11:48 04/15/19 11:48 04/15/19 11:48 04/15/19 11:48 General appearance: Present: no acute distress, well-nourished - EENT Eyes: Present: PERRL ENT: hearing intact, clear oral mucosa - Neck Neck: Present: supple, normal ROM - Respiratory Respiratory effort: normal Respiratory: bilateral: CTA - Cardiovascular Heart Sounds: Present: S1 & S2. Absent: rub, click - Extremities Extremities: pulses symmetrical, No edema Extremity abnormal: other (legs also is bandaged.) Peripheral Pulses: within normal limits - Abdominal General gastrointestinal: Present: soft, non-tender, non-distended, normal bowel sounds Male genitourinary: Present: normal - Integumentary Integumentary: Present: clear, warm, dry - Musculoskeletal Musculoskeletal: gait normal, strength equal bilaterally - Psychiatric Psychiatric: appropriate mood/affect, intact judgment & insight - Neurologic Neurologic: CNII-XII intact, moves all extremities Plan Activity: advance as tolerated Weight Bearing Status: Weight Bear as Tolerated Diet: low salt Special Instructions: home health RN [facility] [Primary Care Provider] - 7 Days Prescriptions: Folic Acid 1 mg PO DAILY #30 Omeprazole 40 mg PO DAILY #30 oxyCONTIN ER 15 mg PO Q6H PRN #20 PRN Reason: Pain, Moderate (4-6) Phenergan 25 mg PO Q4H PRN #30 PRN Reason: Nausea
--- NOTE | 2019-04-15 13:57 | Progress Note ---
Assessment and Plan Cultures: 03/20/2019 wound culture: MRSA, resistant to Bactrim A/P: 33 y/o male with history of SCD and chronic b/l LE ulcers: 1) Bilateral lower extremity cellulitis with infected ulcers secondary to MRSA: He has failed multiple rounds of oral doxycycline in the past. Isolate is Bactri m resistant. Zyvox was prescribed as outpatient, but prior-auth was denied by his insurance company. IV Oritavancin was then prescribed, but was denied by his insurance because he didn't have 3 documented fail attempts with vancomycin. X- ray of ankle reviewed, shows no concerns for osteomyelitis. 2) Sickle cell disease: Stable. Recs: Continue IV vancomycin 1250 mg q12 hrs, target vancomycin trough between 10-20 g per mL, duration: 2 weeks Continue wound care Final case management orders placed F/U with Dr. Ha in ID clinic Remains clear for discharge once PICC line is placed and abx arranged. Radha Moon MD, FACP [facility] ([facility]) C: [phone] O: [phone] F: [phone] Subjective Date of service: 04/15/19 Principal diagnosis: chronic ulcer in the LEs, SICKLE CELL DISEASE, Interval history: Denies any complaints. No fever. No pain. Getting PICC line placed today. Objective - Exam Narrative Exam: Physical Exam: Constitutional: Alert, cooperative. No acute distress Head, Ears, Nose: Normocephalic, atraumatic. External ears, nose normal Eyes: Conjunctivae/corneas clear. No icterus. No ptosis. Neck: Supple, no meningeal signs Cardiovascular: S1, S2 normal. Respiratory: Good air entry, clear to auscultation bilaterally GI: Soft, non-tender; bowel sounds normal. No peritoneal signs Musculoskeletal: Bilateral lower extremities in dressings. Skin: No rash or abscess Hem/Lymphatic: No palpable cervical or supraclavicular nodes. No lymphangitis Psych: Mood ok. Affect normal. Neurological: Awake, alert, oriented. No gross abnormality - Constitutional Vitals: Vital Signs Temp Pulse Resp BP Pulse Ox 98.3 F 74 18 99/45 95 04/15/19 11:48 04/15/19 11:48 04/15/19 11:48 04/15/19 11:48 04/15/19 11:48 Temperature -Last 24 Hours Temperature 98.3 F Temperature 98.0 F Temperature 98.3 F Temperature 98.1 F - Labs CBC & Chem 7: 04/15/19 04:55 04/15/19 04:55 Labs: Abnormal lab results 04/15/19 04/15/19 Range/Units 04:55 04:55 RBC 2.63 L (3.65-5.03) M/mm3 Hgb 7.8 L (11.8-15.2) gm/dl Hct 22.8 L (35.5-45.6) % RDW 25.2 H (13.2-15.2) % Lymphocytes % (Manual) 36.0 H (13.4-35.0) % Basophils % (Manual) 3.0 H (0.0-1.8) % Nucleated RBC % 4.0 H (0.0-0.9) % Basophils # (Manual) 0.2 H (0.0-0.1) K/mm3 BUN 5 L (9-20) mg/dL Creatinine 0.4 L (0.8-1.5) mg/dL Calcium 8.3 L (8.4-10.2) mg/dL Total Bilirubin 6.40 H (0.1-1.2) mg/dL Alkaline Phosphatase 176 H (35-129) units/L Albumin 3.2 L (3.9-5) g/dL
== END 2019-04-15 16:30 | disposition home or self-care (01) | DRG 300 ==
LOC: UNDOADMIN 13:43 → 3A 13:43
PROVIDERS: ADMIT Internal Medicine; ATTEND Internal Medicine
PROC: 30233N1 Transfusion of Nonautologous Red Blood Cells into Peripheral Vein, Percutaneous Approach (ICD-10-PCS; 2019-04-12)
PROC: 02HV33Z Insertion of Infusion Device into Superior Vena Cava, Percutaneous Approach (ICD-10-PCS; principal; 2019-04-15)
DX: I70.243 Atherosclerosis of native arteries of left leg with ulceration of ankle (principal); L03.116 Cellulitis of left lower limb; L03.115 Cellulitis of right lower limb; E44.1 Mild protein-calorie malnutrition; Z68.1 Body mass index [BMI] 19.9 or less, adult; B95.62 Methicillin resistant Staphylococcus aureus infection as the cause of diseases classified elsewhere; D64.9 Anemia, unspecified; D57.1 Sickle-cell disease without crisis; L97.329 Non-pressure chronic ulcer of left ankle with unspecified severity; I70.233 Atherosclerosis of native arteries of right leg with ulceration of ankle; L97.319 Non-pressure chronic ulcer of right ankle with unspecified severity; R74.0 Nonspecific elevation of levels of transaminase and lactic acid dehydrogenase [LDH]; E87.6 Hypokalemia; K21.9 Gastro-esophageal reflux disease without esophagitis; Z90.49 Acquired absence of other specified parts of digestive tract; Z82.49 Family history of ischemic heart disease and other diseases of the circulatory system; Z79.899 Other long term (current) drug therapy
CPT/HCPCS: 36415; 80053; 80074; 80202; 83036; 85007; 85025; 86850; 86900; 86901; 86920; 87040; G0378; J0295; J1170; J1650; J2405; J3370; J7040; J7042; J7050; P9016

== ENCOUNTER 2019-04-18 11:13 | Outpatient (CLI) | payer MEDICAID ==
[2019-04-18] MEDS ORDERED: LIDOCAINE (4%) 40 MG/ML TOPICAL SOLN 50 ML BOTTLE TP ONE (11:26)
== END 2019-04-18 11:14 | disposition home or self-care (01) ==
LOC: WOUND 11:13
PROVIDERS: ATTEND Surgery
DX: L97.312 Non-pressure chronic ulcer of right ankle with fat layer exposed (principal); L97.322 Non-pressure chronic ulcer of left ankle with fat layer exposed; D57.1 Sickle-cell disease without crisis; I74.3 Embolism and thrombosis of arteries of the lower extremities; K21.9 Gastro-esophageal reflux disease without esophagitis; G62.9 Polyneuropathy, unspecified; Z90.49 Acquired absence of other specified parts of digestive tract
CPT/HCPCS: 36415; 80202; 82565; 84450; 84460; 85025; 85652; 86140

== ENCOUNTER 2019-04-18 13:44 | Outpatient (CLI) | payer MEDICAID ==
[2019-04-18 14:42] LABS: Basophils # (Auto) 0.1 K/mm3 (0.0-0.1); Eosinophils # (Auto) 0.1 K/mm3 (0.0-0.4); Eosinophils % (Auto) 2.2 % (0.0-4.3); Hematocrit 22.8 % (35.5-45.6); Hemoglobin 7.9 gm/dl (11.8-15.2); Lymphocytes # (Auto) 1.6 K/mm3 (1.2-5.4); Lymphocytes % (Auto) 25.8 % (13.4-35.0); Mean Corpuscular HGB Conc 35 % (32-34); Mean Corpuscular Volume 85 fl (84-94); Monocytes # (Auto) 0.6 K/mm3 (0.0-0.8); Monocytes % (Auto) 9.8 % (0.0-7.3); Platelet Count 237 K/mm3 (140-440); Red Blood Count 2.67 M/mm3 (3.65-5.03)
[2019-04-18 14:44] LABS: Red Cell Distribution Width 23.8 % (13.2-15.2)
[2019-04-18 14:55] LABS: Alanine Aminotransferase 17 units/L (7-56)
[2019-04-18 15:10] LABS: Erythrocyte Sedimentation Rate 47 mm/Hr (0-20)
== END 2019-04-18 13:45 | disposition home or self-care (01) ==
LOC: LAB 13:44
PROVIDERS: ATTEND Internal Medicine Infectious Disease
DX: L97.829 Non-pressure chronic ulcer of other part of left lower leg with unspecified severity (principal); L97.819 Non-pressure chronic ulcer of other part of right lower leg with unspecified severity; L03.116 Cellulitis of left lower limb; L03.115 Cellulitis of right lower limb; A49.02 Methicillin resistant Staphylococcus aureus infection, unspecified site
CPT/HCPCS: 36415; 80202; 82565; 84450; 84460; 85025; 85652; 86140

== ENCOUNTER 2019-04-25 11:14 | Outpatient (CLI) | payer MEDICAID ==
[2019-04-25] MEDS ORDERED: SILVER NITRATE APPLICATOR 1 EA TP ONE (11:17)
[2019-04-25] MEDS ORDERED: LIDOCAINE (4%) 40 MG/ML TOPICAL SOLN 50 ML BOTTLE TP ONE (11:17)
== END 2019-04-25 11:15 | disposition home or self-care (01) ==
LOC: WOUND 11:14
PROVIDERS: ATTEND Surgery
DX: L97.312 Non-pressure chronic ulcer of right ankle with fat layer exposed (principal); L97.322 Non-pressure chronic ulcer of left ankle with fat layer exposed; D57.1 Sickle-cell disease without crisis; I74.3 Embolism and thrombosis of arteries of the lower extremities; K21.9 Gastro-esophageal reflux disease without esophagitis; G62.9 Polyneuropathy, unspecified; Z90.49 Acquired absence of other specified parts of digestive tract
CPT/HCPCS: 36415; 80202; 82565; 84450; 84460; 85007; 85025; 85652; 86140

== ENCOUNTER 2019-05-02 11:09 | Outpatient (CLI) | payer MEDICAID ==
[2019-05-02] MEDS ORDERED: LIDOCAINE (4%) 40 MG/ML TOPICAL SOLN 50 ML BOTTLE TP ONE (11:22)
== END 2019-05-02 11:10 | disposition home or self-care (01) ==
LOC: WOUND 11:09
PROVIDERS: ATTEND Surgery
DX: L97.312 Non-pressure chronic ulcer of right ankle with fat layer exposed (principal); L97.322 Non-pressure chronic ulcer of left ankle with fat layer exposed; I74.3 Embolism and thrombosis of arteries of the lower extremities; D57.1 Sickle-cell disease without crisis; K21.9 Gastro-esophageal reflux disease without esophagitis; G62.9 Polyneuropathy, unspecified; Z90.49 Acquired absence of other specified parts of digestive tract

== ENCOUNTER 2019-05-09 10:53 | Outpatient (CLI) | payer MEDICAID ==
[2019-05-09] MEDS ORDERED: LIDOCAINE (4%) 40 MG/ML TOPICAL SOLN 50 ML BOTTLE TP ONE (11:00)
== END 2019-05-09 10:54 | disposition home or self-care (01) ==
LOC: WOUND 10:53
PROVIDERS: ATTEND Surgery
DX: L97.312 Non-pressure chronic ulcer of right ankle with fat layer exposed (principal); L97.322 Non-pressure chronic ulcer of left ankle with fat layer exposed; I74.3 Embolism and thrombosis of arteries of the lower extremities; D57.1 Sickle-cell disease without crisis; K21.9 Gastro-esophageal reflux disease without esophagitis; G62.9 Polyneuropathy, unspecified; Z90.49 Acquired absence of other specified parts of digestive tract
CPT/HCPCS: 29581

== ENCOUNTER 2019-05-16 11:18 | Outpatient (CLI) | payer MEDICAID ==
[2019-05-16] MEDS ORDERED: LIDOCAINE (4%) 40 MG/ML TOPICAL SOLN 50 ML BOTTLE TP ONE (11:31)
== END 2019-05-16 11:19 | disposition home or self-care (01) ==
LOC: WOUND 11:18
PROVIDERS: ATTEND Surgery
DX: L97.312 Non-pressure chronic ulcer of right ankle with fat layer exposed (principal); L97.322 Non-pressure chronic ulcer of left ankle with fat layer exposed; I74.3 Embolism and thrombosis of arteries of the lower extremities; D57.1 Sickle-cell disease without crisis; K21.9 Gastro-esophageal reflux disease without esophagitis; G62.9 Polyneuropathy, unspecified; Z90.49 Acquired absence of other specified parts of digestive tract

== ENCOUNTER 2019-05-23 11:13 | Outpatient (CLI) | payer MEDICAID ==
[2019-05-23] MEDS ORDERED: LIDOCAINE (4%) 40 MG/ML TOPICAL SOLN 50 ML BOTTLE TP NR (11:30)
== END 2019-05-23 11:14 | disposition home or self-care (01) ==
LOC: WOUND 11:13
PROVIDERS: ATTEND Surgery
DX: L97.312 Non-pressure chronic ulcer of right ankle with fat layer exposed (principal); L97.322 Non-pressure chronic ulcer of left ankle with fat layer exposed; D57.1 Sickle-cell disease without crisis; I74.3 Embolism and thrombosis of arteries of the lower extremities; K21.9 Gastro-esophageal reflux disease without esophagitis; G62.9 Polyneuropathy, unspecified; Z90.49 Acquired absence of other specified parts of digestive tract

== ENCOUNTER 2019-06-13 11:03 | Outpatient (CLI) | payer MEDICAID ==
[2019-06-13] MEDS ORDERED: LIDOCAINE (4%) 40 MG/ML TOPICAL SOLN 50 ML BOTTLE TP ONE (12:06)
== END 2019-06-13 11:04 | disposition home or self-care (01) ==
LOC: WOUND 11:03
PROVIDERS: ATTEND Surgery
DX: L97.312 Non-pressure chronic ulcer of right ankle with fat layer exposed (principal); L97.322 Non-pressure chronic ulcer of left ankle with fat layer exposed; D57.1 Sickle-cell disease without crisis; I73.9 Peripheral vascular disease, unspecified; K21.9 Gastro-esophageal reflux disease without esophagitis; G62.9 Polyneuropathy, unspecified; Z90.49 Acquired absence of other specified parts of digestive tract

== ENCOUNTER 2019-07-17 13:01 | Outpatient (CLI) | payer MEDICAID ==
[2019-07-17] MEDS ORDERED: LIDOCAINE (4%) 40 MG/ML TOPICAL SOLN 50 ML BOTTLE TP ONE (13:04)
== END 2019-07-17 13:02 | disposition home or self-care (01) ==
LOC: WOUND 13:01
PROVIDERS: ATTEND Surgery
DX: L97.312 Non-pressure chronic ulcer of right ankle with fat layer exposed (principal); L97.322 Non-pressure chronic ulcer of left ankle with fat layer exposed; D57.1 Sickle-cell disease without crisis; I73.9 Peripheral vascular disease, unspecified; K21.9 Gastro-esophageal reflux disease without esophagitis; G62.9 Polyneuropathy, unspecified; Z90.49 Acquired absence of other specified parts of digestive tract

== ENCOUNTER 2019-07-31 13:58 | Outpatient (CLI) | payer MEDICAID ==
[2019-07-31] MEDS ORDERED: LIDOCAINE (4%) 40 MG/ML TOPICAL SOLN 50 ML BOTTLE TP ONE (14:16)
== END 2019-07-31 13:59 | disposition home or self-care (01) ==
LOC: WOUND 13:58
PROVIDERS: ATTEND Surgery
DX: L97.312 Non-pressure chronic ulcer of right ankle with fat layer exposed (principal); L97.322 Non-pressure chronic ulcer of left ankle with fat layer exposed; D57.1 Sickle-cell disease without crisis; I73.9 Peripheral vascular disease, unspecified; K21.9 Gastro-esophageal reflux disease without esophagitis; G62.9 Polyneuropathy, unspecified; Z90.49 Acquired absence of other specified parts of digestive tract

== ENCOUNTER 2019-08-07 13:34 | Outpatient (CLI) | payer MEDICAID ==
[2019-08-07] MEDS ORDERED: LIDOCAINE (4%) 40 MG/ML TOPICAL SOLN 50 ML BOTTLE TP ONE (13:57)
== END 2019-08-07 13:35 | disposition home or self-care (01) ==
LOC: WOUND 13:34
PROVIDERS: ATTEND Surgery
DX: L97.312 Non-pressure chronic ulcer of right ankle with fat layer exposed (principal); L97.322 Non-pressure chronic ulcer of left ankle with fat layer exposed; D57.1 Sickle-cell disease without crisis; I73.9 Peripheral vascular disease, unspecified; G62.9 Polyneuropathy, unspecified; Z90.49 Acquired absence of other specified parts of digestive tract

== ENCOUNTER 2019-08-14 16:11 | Outpatient (CLI) | payer MEDICAID ==
[~2019-08-14 16:11] MED LIST changes: +LIDOCAINE (4%) 40 MG/ML TOPICAL SOLN 50 ML BOTTLE TP ONE; -XYLOCAINE TOPICAL 4% TP ONE
== END 2019-08-14 16:12 | disposition home or self-care (01) ==
LOC: WOUND 16:11
PROVIDERS: ATTEND Surgery
DX: L97.312 Non-pressure chronic ulcer of right ankle with fat layer exposed (principal); L97.322 Non-pressure chronic ulcer of left ankle with fat layer exposed; D57.1 Sickle-cell disease without crisis; I73.9 Peripheral vascular disease, unspecified; G62.9 Polyneuropathy, unspecified; Z90.49 Acquired absence of other specified parts of digestive tract

== ENCOUNTER 2019-08-21 11:10 | Outpatient (CLI) | payer MEDICAID ==
[2019-08-21] MEDS ORDERED: LIDOCAINE (4%) 40 MG/ML TOPICAL SOLN 50 ML BOTTLE TP ONE (11:46)
== END 2019-08-21 11:11 | disposition home or self-care (01) ==
LOC: WOUND 11:10
PROVIDERS: ATTEND Surgery
DX: L97.312 Non-pressure chronic ulcer of right ankle with fat layer exposed (principal); L97.322 Non-pressure chronic ulcer of left ankle with fat layer exposed; D57.1 Sickle-cell disease without crisis; I73.9 Peripheral vascular disease, unspecified; G62.9 Polyneuropathy, unspecified; Z90.49 Acquired absence of other specified parts of digestive tract
CPT/HCPCS: 87075; 87076; 87116; 87186

== ENCOUNTER 2019-08-28 11:04 | Outpatient (CLI) | payer MEDICAID ==
[2019-08-28] MEDS ORDERED: LIDOCAINE (4%) 40 MG/ML TOPICAL SOLN 50 ML BOTTLE TP ONE (11:20)
== END 2019-08-28 11:05 | disposition home or self-care (01) ==
LOC: WOUND 11:04
PROVIDERS: ATTEND Surgery
DX: L97.312 Non-pressure chronic ulcer of right ankle with fat layer exposed (principal); L97.322 Non-pressure chronic ulcer of left ankle with fat layer exposed; D57.1 Sickle-cell disease without crisis; I73.9 Peripheral vascular disease, unspecified; G62.9 Polyneuropathy, unspecified; Z90.49 Acquired absence of other specified parts of digestive tract

== ENCOUNTER 2019-09-04 11:03 | Outpatient (CLI) | payer MEDICAID ==
[2019-09-04] MEDS ORDERED: LIDOCAINE (4%) 40 MG/ML TOPICAL SOLN 50 ML BOTTLE TP ONE (11:30)
== END 2019-09-04 11:04 | disposition home or self-care (01) ==
LOC: WOUND 11:03
PROVIDERS: ATTEND Surgery
DX: L97.312 Non-pressure chronic ulcer of right ankle with fat layer exposed (principal); L97.322 Non-pressure chronic ulcer of left ankle with fat layer exposed; D57.1 Sickle-cell disease without crisis; I74.3 Embolism and thrombosis of arteries of the lower extremities; K21.9 Gastro-esophageal reflux disease without esophagitis; G62.9 Polyneuropathy, unspecified; Z90.49 Acquired absence of other specified parts of digestive tract

== ENCOUNTER 2019-09-11 11:09 | Outpatient (CLI) | payer MEDICAID ==
[2019-09-11] MEDS ORDERED: LIDOCAINE (4%) 40 MG/ML TOPICAL SOLN 50 ML BOTTLE TP ONE (11:23)
== END 2019-09-11 11:10 | disposition home or self-care (01) ==
LOC: WOUND 11:09
PROVIDERS: ATTEND Surgery
DX: L97.316 Non-pressure chronic ulcer of right ankle with bone involvement without evidence of necrosis (principal); L97.326 Non-pressure chronic ulcer of left ankle with bone involvement without evidence of necrosis; D57.1 Sickle-cell disease without crisis; I74.3 Embolism and thrombosis of arteries of the lower extremities; K21.9 Gastro-esophageal reflux disease without esophagitis; G62.9 Polyneuropathy, unspecified; Z90.49 Acquired absence of other specified parts of digestive tract

== ENCOUNTER 2019-10-08 11:02 | Outpatient (CLI) | payer MEDICAID ==
[2019-10-08] MEDS ORDERED: LIDOCAINE (4%) 40 MG/ML TOPICAL SOLN 50 ML BOTTLE TP ONE (11:35)
[2019-10-08] MEDS ORDERED: SODIUM HYPOCHLORITE, DAKIN'S FULL STRENGTH (0.5%) 473 ML TOPICAL SOLN TP ONE (12:27)
== END 2019-10-08 11:03 | disposition home or self-care (01) ==
LOC: WOUND 11:02
PROVIDERS: ATTEND Surgery
DX: L97.312 Non-pressure chronic ulcer of right ankle with fat layer exposed (principal); L97.322 Non-pressure chronic ulcer of left ankle with fat layer exposed; D57.1 Sickle-cell disease without crisis; I74.3 Embolism and thrombosis of arteries of the lower extremities; K21.9 Gastro-esophageal reflux disease without esophagitis; G62.9 Polyneuropathy, unspecified; Z90.49 Acquired absence of other specified parts of digestive tract

== ENCOUNTER 2019-11-27 11:11 | Outpatient (CLI) | payer MEDICAID | END 2019-11-27 11:12 | disposition home or self-care (01) | LOC: WOUND 11:11 | PROVIDERS: ATTEND Surgery | DX: L97.312 Non-pressure chronic ulcer of right ankle with fat layer exposed (principal); L97.322 Non-pressure chronic ulcer of left ankle with fat layer exposed; D57.1 Sickle-cell disease without crisis; I74.3 Embolism and thrombosis of arteries of the lower extremities; K21.9 Gastro-esophageal reflux disease without esophagitis; G62.9 Polyneuropathy, unspecified; Z90.49 Acquired absence of other specified parts of digestive tract ==

== ENCOUNTER 2019-12-11 11:02 | Outpatient (CLI) | payer MEDICAID ==
[2019-12-11] MEDS ORDERED: LIDOCAINE (4%) 40 MG/ML TOPICAL SOLN 50 ML BOTTLE TP ONE (12:00)
== END 2019-12-11 11:03 | disposition home or self-care (01) ==
LOC: WOUND 11:02
PROVIDERS: ATTEND Surgery
DX: L97.312 Non-pressure chronic ulcer of right ankle with fat layer exposed (principal); L97.322 Non-pressure chronic ulcer of left ankle with fat layer exposed; D57.1 Sickle-cell disease without crisis; I74.3 Embolism and thrombosis of arteries of the lower extremities; K21.9 Gastro-esophageal reflux disease without esophagitis; G62.9 Polyneuropathy, unspecified; Z90.49 Acquired absence of other specified parts of digestive tract

== ENCOUNTER 2020-01-08 10:11 | Outpatient (CLI) | payer MEDICAID ==
[2020-01-08] MEDS ORDERED: LIDOCAINE (4%) 40 MG/ML TOPICAL SOLN 50 ML BOTTLE TP ONE (10:14)
== END 2020-01-08 10:12 | disposition home or self-care (01) ==
LOC: WOUND 10:11
PROVIDERS: ATTEND Surgery
DX: L97.312 Non-pressure chronic ulcer of right ankle with fat layer exposed (principal); L97.322 Non-pressure chronic ulcer of left ankle with fat layer exposed; D57.1 Sickle-cell disease without crisis; I74.3 Embolism and thrombosis of arteries of the lower extremities; K21.9 Gastro-esophageal reflux disease without esophagitis; G62.9 Polyneuropathy, unspecified; Z90.49 Acquired absence of other specified parts of digestive tract

== ENCOUNTER 2020-01-15 10:08 | Outpatient (CLI) | payer MEDICAID ==
[2020-01-15] MEDS ORDERED: LIDOCAINE (4%) 40 MG/ML TOPICAL SOLN 50 ML BOTTLE TP ONE (10:09)
== END 2020-01-15 10:09 | disposition home or self-care (01) ==
LOC: WOUND 10:08
PROVIDERS: ATTEND Surgery
DX: L97.312 Non-pressure chronic ulcer of right ankle with fat layer exposed (principal); L97.322 Non-pressure chronic ulcer of left ankle with fat layer exposed; D57.1 Sickle-cell disease without crisis; I74.3 Embolism and thrombosis of arteries of the lower extremities; K21.9 Gastro-esophageal reflux disease without esophagitis; G62.9 Polyneuropathy, unspecified; Z90.49 Acquired absence of other specified parts of digestive tract
CPT/HCPCS: 29581

== ENCOUNTER 2020-01-27 11:02 | Outpatient (CLI) | payer MEDICAID ==
[2020-01-27] MEDS ORDERED: LIDOCAINE (4%) 40 MG/ML TOPICAL SOLN 50 ML BOTTLE TP ONE (11:04)
== END 2020-01-27 11:03 | disposition home or self-care (01) ==
LOC: WOUND 11:02
PROVIDERS: ATTEND Surgery
DX: L97.312 Non-pressure chronic ulcer of right ankle with fat layer exposed (principal); L97.322 Non-pressure chronic ulcer of left ankle with fat layer exposed; D57.1 Sickle-cell disease without crisis; I74.3 Embolism and thrombosis of arteries of the lower extremities; K21.9 Gastro-esophageal reflux disease without esophagitis; G62.9 Polyneuropathy, unspecified; Z90.49 Acquired absence of other specified parts of digestive tract

== ENCOUNTER 2020-02-18 10:32 | Outpatient (CLI) | payer MEDICAID ==
[2020-02-18] MEDS ORDERED: LIDOCAINE (4%) 40 MG/ML TOPICAL SOLN 50 ML BOTTLE TP ONE (10:34)
[2020-02-18] MEDS ORDERED: SODIUM CHLORIDE 0.9% IRR 500 ML BOTTLE IR ONE (11:42)
== END 2020-02-18 10:33 | disposition home or self-care (01) ==
LOC: WOUND 10:32
PROVIDERS: ATTEND Surgery
DX: L97.312 Non-pressure chronic ulcer of right ankle with fat layer exposed (principal); L97.322 Non-pressure chronic ulcer of left ankle with fat layer exposed; D57.1 Sickle-cell disease without crisis; I74.3 Embolism and thrombosis of arteries of the lower extremities; K21.9 Gastro-esophageal reflux disease without esophagitis; G62.9 Polyneuropathy, unspecified; Z90.49 Acquired absence of other specified parts of digestive tract
CPT/HCPCS: 29581

== ENCOUNTER 2020-02-25 10:34 | Outpatient (CLI) | payer MEDICAID ==
[2020-02-25] MEDS ORDERED: LIDOCAINE (4%) 40 MG/ML TOPICAL SOLN 50 ML BOTTLE TP ONE (10:37)
== END 2020-02-25 10:35 | disposition home or self-care (01) ==
LOC: WOUND 10:34
PROVIDERS: ATTEND Surgery
DX: L97.312 Non-pressure chronic ulcer of right ankle with fat layer exposed (principal); L97.322 Non-pressure chronic ulcer of left ankle with fat layer exposed; D57.1 Sickle-cell disease without crisis; I74.3 Embolism and thrombosis of arteries of the lower extremities; K21.9 Gastro-esophageal reflux disease without esophagitis; G62.9 Polyneuropathy, unspecified; Z90.49 Acquired absence of other specified parts of digestive tract
CPT/HCPCS: 29581

== ENCOUNTER 2020-03-17 11:06 | Outpatient (CLI) | payer MEDICAID ==
[2020-03-17] MEDS ORDERED: LIDOCAINE (4%) 40 MG/ML TOPICAL SOLN 50 ML BOTTLE TP ONE (11:15)
== END 2020-03-17 11:07 | disposition home or self-care (01) ==
LOC: WOUND 11:06
PROVIDERS: ATTEND Surgery
DX: L97.312 Non-pressure chronic ulcer of right ankle with fat layer exposed (principal); L97.322 Non-pressure chronic ulcer of left ankle with fat layer exposed; D57.1 Sickle-cell disease without crisis; I74.3 Embolism and thrombosis of arteries of the lower extremities; K21.9 Gastro-esophageal reflux disease without esophagitis; G62.9 Polyneuropathy, unspecified; Z90.49 Acquired absence of other specified parts of digestive tract

== ENCOUNTER 2020-03-24 10:11 | Outpatient (CLI) | payer MEDICAID ==
[2020-03-24] MEDS ORDERED: LIDOCAINE (4%) 40 MG/ML TOPICAL SOLN 50 ML BOTTLE TP ONE (10:46)
== END 2020-03-24 10:12 | disposition home or self-care (01) ==
LOC: WOUND 10:11
PROVIDERS: ATTEND Surgery
DX: L97.312 Non-pressure chronic ulcer of right ankle with fat layer exposed (principal); L97.322 Non-pressure chronic ulcer of left ankle with fat layer exposed; D57.1 Sickle-cell disease without crisis; I74.3 Embolism and thrombosis of arteries of the lower extremities; K21.9 Gastro-esophageal reflux disease without esophagitis; G62.9 Polyneuropathy, unspecified; Z90.49 Acquired absence of other specified parts of digestive tract

== ENCOUNTER 2020-03-31 12:24 | Outpatient (CLI) | payer MEDICAID ==
[2020-03-31] MEDS ORDERED: LIDOCAINE (4%) 40 MG/ML TOPICAL SOLN 50 ML BOTTLE TP ONE (12:30)
== END 2020-03-31 12:25 | disposition home or self-care (01) ==
LOC: WOUND 12:24
PROVIDERS: ATTEND Surgery
DX: L97.312 Non-pressure chronic ulcer of right ankle with fat layer exposed (principal); L97.322 Non-pressure chronic ulcer of left ankle with fat layer exposed; D57.1 Sickle-cell disease without crisis; I74.3 Embolism and thrombosis of arteries of the lower extremities; K21.9 Gastro-esophageal reflux disease without esophagitis; G62.9 Polyneuropathy, unspecified; Z90.49 Acquired absence of other specified parts of digestive tract
CPT/HCPCS: 29581

== ENCOUNTER 2020-04-08 10:06 | Outpatient (CLI) | payer MEDICAID ==
[2020-04-08] MEDS ORDERED: LIDOCAINE (4%) 40 MG/ML TOPICAL SOLN 50 ML BOTTLE TP ONE (10:13)
== END 2020-04-08 10:07 | disposition home or self-care (01) ==
LOC: WOUND 10:06
PROVIDERS: ATTEND Surgery
DX: L97.312 Non-pressure chronic ulcer of right ankle with fat layer exposed (principal); L97.322 Non-pressure chronic ulcer of left ankle with fat layer exposed; D57.1 Sickle-cell disease without crisis; I74.3 Embolism and thrombosis of arteries of the lower extremities; K21.9 Gastro-esophageal reflux disease without esophagitis; G62.9 Polyneuropathy, unspecified; Z90.49 Acquired absence of other specified parts of digestive tract
CPT/HCPCS: 87075; 87116; 87186

== ENCOUNTER 2020-04-14 11:05 | Outpatient (CLI) | payer MEDICAID | END 2020-04-14 11:06 | disposition home or self-care (01) | LOC: WOUND 11:05 | PROVIDERS: ATTEND Surgery | DX: L97.312 Non-pressure chronic ulcer of right ankle with fat layer exposed (principal); L97.322 Non-pressure chronic ulcer of left ankle with fat layer exposed; D57.1 Sickle-cell disease without crisis; I74.3 Embolism and thrombosis of arteries of the lower extremities; K21.9 Gastro-esophageal reflux disease without esophagitis; G62.9 Polyneuropathy, unspecified; Z90.49 Acquired absence of other specified parts of digestive tract | CPT/HCPCS: 29581 ==

== ENCOUNTER 2020-04-21 10:39 | Outpatient (CLI) | payer MEDICAID ==
[2020-04-21] MEDS ORDERED: LIDOCAINE (4%) 40 MG/ML TOPICAL SOLN 50 ML BOTTLE TP SCH (10:51)
== END 2020-04-21 10:40 | disposition home or self-care (01) ==
LOC: WOUND 10:39
PROVIDERS: ATTEND Surgery
DX: L97.312 Non-pressure chronic ulcer of right ankle with fat layer exposed (principal); L97.322 Non-pressure chronic ulcer of left ankle with fat layer exposed; D57.1 Sickle-cell disease without crisis; I74.3 Embolism and thrombosis of arteries of the lower extremities; K21.9 Gastro-esophageal reflux disease without esophagitis; G62.9 Polyneuropathy, unspecified; Z90.49 Acquired absence of other specified parts of digestive tract
CPT/HCPCS: 29581

== ENCOUNTER 2020-04-28 10:32 | Outpatient (CLI) | payer MEDICAID ==
[2020-04-28] MEDS ORDERED: LIDOCAINE (4%) 40 MG/ML TOPICAL SOLN 50 ML BOTTLE TP NR (10:33)
== END 2020-04-28 10:33 | disposition home or self-care (01) ==
LOC: WOUND 10:32
PROVIDERS: ATTEND Surgery
DX: L97.312 Non-pressure chronic ulcer of right ankle with fat layer exposed (principal); L97.322 Non-pressure chronic ulcer of left ankle with fat layer exposed; D57.1 Sickle-cell disease without crisis; I74.3 Embolism and thrombosis of arteries of the lower extremities; K21.9 Gastro-esophageal reflux disease without esophagitis; G62.9 Polyneuropathy, unspecified; Z90.49 Acquired absence of other specified parts of digestive tract
CPT/HCPCS: 29581

== ENCOUNTER 2020-05-05 10:41 | Outpatient (CLI) | payer MEDICAID ==
[2020-05-05] MEDS ORDERED: LIDOCAINE (4%) 40 MG/ML TOPICAL SOLN 50 ML BOTTLE TP ONE (10:45)
== END 2020-05-05 10:42 | disposition home or self-care (01) ==
LOC: WOUND 10:41
PROVIDERS: ATTEND Surgery
DX: L97.312 Non-pressure chronic ulcer of right ankle with fat layer exposed (principal); L97.322 Non-pressure chronic ulcer of left ankle with fat layer exposed; D57.1 Sickle-cell disease without crisis; I74.3 Embolism and thrombosis of arteries of the lower extremities; K21.9 Gastro-esophageal reflux disease without esophagitis; G62.9 Polyneuropathy, unspecified; Z90.49 Acquired absence of other specified parts of digestive tract
CPT/HCPCS: 29581

== ENCOUNTER 2020-05-12 10:23 | Outpatient (CLI) | payer MEDICAID ==
[2020-05-12] MEDS ORDERED: LIDOCAINE (4%) 40 MG/ML TOPICAL SOLN 50 ML BOTTLE TP SCH (10:42)
== END 2020-05-12 10:24 | disposition home or self-care (01) ==
LOC: WOUND 10:23
PROVIDERS: ATTEND Surgery
DX: L97.312 Non-pressure chronic ulcer of right ankle with fat layer exposed (principal); L97.322 Non-pressure chronic ulcer of left ankle with fat layer exposed; D57.1 Sickle-cell disease without crisis; I74.3 Embolism and thrombosis of arteries of the lower extremities; K21.9 Gastro-esophageal reflux disease without esophagitis; G62.9 Polyneuropathy, unspecified; Z90.49 Acquired absence of other specified parts of digestive tract
CPT/HCPCS: 29581

== ENCOUNTER 2020-05-19 10:40 | Outpatient (CLI) | payer MEDICAID ==
[2020-05-19] MEDS ORDERED: LIDOCAINE (4%) 40 MG/ML TOPICAL SOLN 50 ML BOTTLE TP ONE (10:54)
[2020-05-19] MEDS ORDERED: SODIUM CHLORIDE 0.9% IRR 500 ML BOTTLE IR ONE (15:43)
== END 2020-05-19 10:41 | disposition home or self-care (01) ==
LOC: WOUND 10:40
PROVIDERS: ATTEND Surgery
DX: L97.312 Non-pressure chronic ulcer of right ankle with fat layer exposed (principal); L97.322 Non-pressure chronic ulcer of left ankle with fat layer exposed; D57.1 Sickle-cell disease without crisis; I74.3 Embolism and thrombosis of arteries of the lower extremities; K21.9 Gastro-esophageal reflux disease without esophagitis; G62.9 Polyneuropathy, unspecified; Z90.49 Acquired absence of other specified parts of digestive tract
CPT/HCPCS: 29581

== ENCOUNTER 2020-05-26 09:46 | Outpatient (CLI) | payer MEDICAID ==
[2020-05-26] MEDS ORDERED: LIDOCAINE (4%) 40 MG/ML TOPICAL SOLN 50 ML BOTTLE TP NR (10:43)
[2020-05-26] MEDS ORDERED: VITAMIN A & D OINT 56.7 GM TP SCH (11:00)
== END 2020-05-26 09:47 | disposition home or self-care (01) ==
LOC: WOUND 09:46
PROVIDERS: ATTEND Surgery
DX: L97.312 Non-pressure chronic ulcer of right ankle with fat layer exposed (principal); L97.322 Non-pressure chronic ulcer of left ankle with fat layer exposed; D57.1 Sickle-cell disease without crisis; I74.3 Embolism and thrombosis of arteries of the lower extremities; K21.9 Gastro-esophageal reflux disease without esophagitis; G62.9 Polyneuropathy, unspecified; Z90.49 Acquired absence of other specified parts of digestive tract
CPT/HCPCS: 11042; 11045; A6250; 29581

== ENCOUNTER 2020-06-02 10:20 | Outpatient (CLI) | payer MEDICAID ==
[2020-06-02] MEDS ORDERED: LIDOCAINE (4%) 40 MG/ML TOPICAL SOLN 50 ML BOTTLE TP SCH (11:00)
== END 2020-06-02 10:21 | disposition home or self-care (01) ==
LOC: WOUND 10:20
PROVIDERS: ATTEND Surgery
DX: L97.312 Non-pressure chronic ulcer of right ankle with fat layer exposed (principal); L97.322 Non-pressure chronic ulcer of left ankle with fat layer exposed; D57.1 Sickle-cell disease without crisis; I74.3 Embolism and thrombosis of arteries of the lower extremities; K21.9 Gastro-esophageal reflux disease without esophagitis; G62.9 Polyneuropathy, unspecified; Z90.49 Acquired absence of other specified parts of digestive tract
CPT/HCPCS: 29581

== ENCOUNTER 2020-06-09 10:34 | Outpatient (CLI) | payer MEDICAID ==
[2020-06-09] MEDS ORDERED: LIDOCAINE (4%) 40 MG/ML TOPICAL SOLN 50 ML BOTTLE TP ONE (10:51)
== END 2020-06-09 10:35 | disposition home or self-care (01) ==
LOC: WOUND 10:34
PROVIDERS: ATTEND Surgery
DX: L97.312 Non-pressure chronic ulcer of right ankle with fat layer exposed (principal); L97.322 Non-pressure chronic ulcer of left ankle with fat layer exposed; D57.1 Sickle-cell disease without crisis; I74.3 Embolism and thrombosis of arteries of the lower extremities; K21.9 Gastro-esophageal reflux disease without esophagitis; G62.9 Polyneuropathy, unspecified; Z90.49 Acquired absence of other specified parts of digestive tract
CPT/HCPCS: 29581

== ENCOUNTER 2020-06-16 10:16 | Outpatient (CLI) | payer MEDICAID ==
[2020-06-16] MEDS ORDERED: LIDOCAINE (4%) 40 MG/ML TOPICAL SOLN 50 ML BOTTLE TP ONE (10:36)
== END 2020-06-16 10:17 | disposition home or self-care (01) ==
LOC: WOUND 10:16
PROVIDERS: ATTEND Surgery
DX: L97.312 Non-pressure chronic ulcer of right ankle with fat layer exposed (principal); L97.322 Non-pressure chronic ulcer of left ankle with fat layer exposed; D57.1 Sickle-cell disease without crisis; I74.3 Embolism and thrombosis of arteries of the lower extremities; K21.9 Gastro-esophageal reflux disease without esophagitis; G62.9 Polyneuropathy, unspecified; Z90.49 Acquired absence of other specified parts of digestive tract
CPT/HCPCS: 29581

== ENCOUNTER 2020-06-23 09:52 | Outpatient (CLI) | payer MEDICAID | END 2020-06-23 09:53 | disposition home or self-care (01) | LOC: WOUND 09:52 | PROVIDERS: ATTEND Surgery | DX: L97.312 Non-pressure chronic ulcer of right ankle with fat layer exposed (principal); L97.322 Non-pressure chronic ulcer of left ankle with fat layer exposed; D57.1 Sickle-cell disease without crisis; I74.3 Embolism and thrombosis of arteries of the lower extremities; K21.9 Gastro-esophageal reflux disease without esophagitis; G62.9 Polyneuropathy, unspecified; Z90.49 Acquired absence of other specified parts of digestive tract | CPT/HCPCS: 29581 ==

== ENCOUNTER 2020-06-30 08:29 | Outpatient (CLI) | payer MEDICAID ==
[2020-06-30] MEDS ORDERED: LIDOCAINE (4%) 40 MG/ML TOPICAL SOLN 50 ML BOTTLE TP ONE (10:09)
== END 2020-06-30 08:30 | disposition home or self-care (01) ==
LOC: WOUND 08:29
PROVIDERS: ATTEND Surgery
DX: L97.312 Non-pressure chronic ulcer of right ankle with fat layer exposed (principal); L97.322 Non-pressure chronic ulcer of left ankle with fat layer exposed; D57.1 Sickle-cell disease without crisis; I74.3 Embolism and thrombosis of arteries of the lower extremities; K21.9 Gastro-esophageal reflux disease without esophagitis; G62.9 Polyneuropathy, unspecified; Z90.49 Acquired absence of other specified parts of digestive tract
CPT/HCPCS: 29581

== ENCOUNTER 2020-07-21 09:34 | Outpatient (CLI) | payer MEDICAID ==
[2020-07-21] MEDS ORDERED: LIDOCAINE (4%) 40 MG/ML TOPICAL SOLN 50 ML BOTTLE TP ONE (09:35)
== END 2020-07-21 09:35 | disposition home or self-care (01) ==
LOC: WOUND 09:34
PROVIDERS: ATTEND Surgery
DX: L97.312 Non-pressure chronic ulcer of right ankle with fat layer exposed (principal); L97.322 Non-pressure chronic ulcer of left ankle with fat layer exposed; D57.1 Sickle-cell disease without crisis; I74.3 Embolism and thrombosis of arteries of the lower extremities; K21.9 Gastro-esophageal reflux disease without esophagitis; G62.9 Polyneuropathy, unspecified; Z90.49 Acquired absence of other specified parts of digestive tract
CPT/HCPCS: 29581

== ENCOUNTER 2020-07-28 10:23 | Outpatient (CLI) | payer MEDICAID ==
[2020-07-28] MEDS ORDERED: LIDOCAINE (4%) 40 MG/ML TOPICAL SOLN 50 ML BOTTLE TP ONE (10:25)
== END 2020-07-28 10:24 | disposition home or self-care (01) ==
LOC: WOUND 10:23
PROVIDERS: ATTEND Surgery
DX: L97.312 Non-pressure chronic ulcer of right ankle with fat layer exposed (principal); L97.322 Non-pressure chronic ulcer of left ankle with fat layer exposed; D57.1 Sickle-cell disease without crisis; I74.3 Embolism and thrombosis of arteries of the lower extremities; K21.9 Gastro-esophageal reflux disease without esophagitis; G62.9 Polyneuropathy, unspecified; Z90.49 Acquired absence of other specified parts of digestive tract
CPT/HCPCS: 29581

== ENCOUNTER 2020-08-04 10:43 | Outpatient (CLI) | payer MEDICAID ==
[2020-08-04] MEDS ORDERED: LIDOCAINE (4%) 40 MG/ML TOPICAL SOLN 50 ML BOTTLE TP ONE (10:46)
[2020-08-04] MEDS ORDERED: SILVER NITRATE APPLICATOR 1 EA TP ONE (11:00)
== END 2020-08-04 10:44 | disposition home or self-care (01) ==
LOC: WOUND 10:43
PROVIDERS: ATTEND Surgery
DX: L97.312 Non-pressure chronic ulcer of right ankle with fat layer exposed (principal); L97.322 Non-pressure chronic ulcer of left ankle with fat layer exposed; D57.1 Sickle-cell disease without crisis; I74.3 Embolism and thrombosis of arteries of the lower extremities; K21.9 Gastro-esophageal reflux disease without esophagitis; G62.9 Polyneuropathy, unspecified; Z90.49 Acquired absence of other specified parts of digestive tract
CPT/HCPCS: 29581

== ENCOUNTER 2020-08-11 10:31 | Outpatient (CLI) | payer MEDICAID ==
[2020-08-11] MEDS ORDERED: LIDOCAINE (4%) 40 MG/ML TOPICAL SOLN 50 ML BOTTLE TP ONE (11:24)
== END 2020-08-11 10:32 | disposition home or self-care (01) ==
LOC: WOUND 10:31
PROVIDERS: ATTEND Surgery
DX: L97.312 Non-pressure chronic ulcer of right ankle with fat layer exposed (principal); L97.322 Non-pressure chronic ulcer of left ankle with fat layer exposed; D57.1 Sickle-cell disease without crisis; I74.3 Embolism and thrombosis of arteries of the lower extremities; K21.9 Gastro-esophageal reflux disease without esophagitis; G62.9 Polyneuropathy, unspecified; Z90.49 Acquired absence of other specified parts of digestive tract
CPT/HCPCS: 29581

== ENCOUNTER 2020-08-18 10:24 | Outpatient (CLI) | payer MEDICAID ==
[2020-08-18] MEDS ORDERED: LIDOCAINE (4%) 40 MG/ML TOPICAL SOLN 50 ML BOTTLE TP ONE (11:18)
[2020-08-18] MEDS ORDERED: VITAMIN A & D OINT 56.7 GM TP SCH (13:00)
== END 2020-08-18 10:25 | disposition home or self-care (01) ==
LOC: WOUND 10:24
PROVIDERS: ATTEND Surgery
DX: L97.312 Non-pressure chronic ulcer of right ankle with fat layer exposed (principal); L97.322 Non-pressure chronic ulcer of left ankle with fat layer exposed; D57.1 Sickle-cell disease without crisis; I74.3 Embolism and thrombosis of arteries of the lower extremities; K21.9 Gastro-esophageal reflux disease without esophagitis; G62.9 Polyneuropathy, unspecified; Z90.49 Acquired absence of other specified parts of digestive tract
CPT/HCPCS: 11042; 29581; A6250

== ENCOUNTER 2020-09-01 10:46 | Outpatient (CLI) | payer MEDICAID ==
[2020-09-01] MEDS ORDERED: LIDOCAINE (4%) 40 MG/ML TOPICAL SOLN 50 ML BOTTLE TP ONE (10:56)
== END 2020-09-01 10:47 | disposition home or self-care (01) ==
LOC: WOUND 10:46
PROVIDERS: ATTEND Surgery
DX: L97.312 Non-pressure chronic ulcer of right ankle with fat layer exposed (principal); L97.322 Non-pressure chronic ulcer of left ankle with fat layer exposed; D57.1 Sickle-cell disease without crisis; I74.3 Embolism and thrombosis of arteries of the lower extremities; K21.9 Gastro-esophageal reflux disease without esophagitis; G62.9 Polyneuropathy, unspecified; Z90.49 Acquired absence of other specified parts of digestive tract
CPT/HCPCS: 29581

== ENCOUNTER 2020-09-08 10:36 | Outpatient (CLI) | payer MEDICAID | END 2020-09-08 10:37 | disposition home or self-care (01) | LOC: WOUND 10:36 | PROVIDERS: ATTEND Surgery | DX: L97.312 Non-pressure chronic ulcer of right ankle with fat layer exposed (principal); L97.322 Non-pressure chronic ulcer of left ankle with fat layer exposed; D57.1 Sickle-cell disease without crisis; I74.3 Embolism and thrombosis of arteries of the lower extremities; K21.9 Gastro-esophageal reflux disease without esophagitis; G62.9 Polyneuropathy, unspecified; Z90.49 Acquired absence of other specified parts of digestive tract | CPT/HCPCS: 29581 ==

== ENCOUNTER 2020-09-15 10:35 | Outpatient (CLI) | payer MEDICAID ==
[2020-09-15] MEDS ORDERED: LIDOCAINE (4%) 40 MG/ML TOPICAL SOLN 50 ML BOTTLE TP ONE (10:56)
== END 2020-09-15 10:36 | disposition home or self-care (01) ==
LOC: WOUND 10:35
PROVIDERS: ATTEND Surgery
DX: L97.312 Non-pressure chronic ulcer of right ankle with fat layer exposed (principal); L97.322 Non-pressure chronic ulcer of left ankle with fat layer exposed; D57.1 Sickle-cell disease without crisis; I74.3 Embolism and thrombosis of arteries of the lower extremities; K21.9 Gastro-esophageal reflux disease without esophagitis; G62.9 Polyneuropathy, unspecified; Z90.49 Acquired absence of other specified parts of digestive tract

== ENCOUNTER 2020-09-22 10:05 | Outpatient (CLI) | payer MEDICAID ==
[2020-09-22] MEDS ORDERED: LIDOCAINE (4%) 40 MG/ML TOPICAL SOLN 50 ML BOTTLE TP SCH (10:30)
== END 2020-09-22 10:06 | disposition home or self-care (01) ==
LOC: WOUND 10:05
PROVIDERS: ATTEND Surgery
DX: L97.312 Non-pressure chronic ulcer of right ankle with fat layer exposed (principal); L97.322 Non-pressure chronic ulcer of left ankle with fat layer exposed; D57.1 Sickle-cell disease without crisis; I74.3 Embolism and thrombosis of arteries of the lower extremities; K21.9 Gastro-esophageal reflux disease without esophagitis; G62.9 Polyneuropathy, unspecified; Z90.49 Acquired absence of other specified parts of digestive tract
CPT/HCPCS: 29581

== ENCOUNTER 2020-09-29 11:28 | Outpatient (CLI) | payer MEDICAID | END 2020-09-29 11:29 | disposition home or self-care (01) | LOC: WOUND 11:28 | PROVIDERS: ATTEND Surgery | DX: L97.312 Non-pressure chronic ulcer of right ankle with fat layer exposed (principal); L97.322 Non-pressure chronic ulcer of left ankle with fat layer exposed; D57.1 Sickle-cell disease without crisis; I73.9 Peripheral vascular disease, unspecified; K21.9 Gastro-esophageal reflux disease without esophagitis; G62.9 Polyneuropathy, unspecified; Z90.49 Acquired absence of other specified parts of digestive tract | CPT/HCPCS: 29581 ==

== ENCOUNTER 2020-10-06 10:33 | Outpatient (CLI) | payer MEDICAID ==
[2020-10-06] MEDS ORDERED: LIDOCAINE (4%) 40 MG/ML TOPICAL SOLN 50 ML BOTTLE TP ONE (10:40)
== END 2020-10-06 10:34 | disposition home or self-care (01) ==
LOC: WOUND 10:33
PROVIDERS: ATTEND Surgery
DX: L97.312 Non-pressure chronic ulcer of right ankle with fat layer exposed (principal); L97.322 Non-pressure chronic ulcer of left ankle with fat layer exposed; D57.1 Sickle-cell disease without crisis; I73.9 Peripheral vascular disease, unspecified; K21.9 Gastro-esophageal reflux disease without esophagitis; G62.9 Polyneuropathy, unspecified; Z90.49 Acquired absence of other specified parts of digestive tract
CPT/HCPCS: 29581

== ENCOUNTER 2020-10-20 10:53 | Outpatient (CLI) | payer MEDICAID ==
[2020-10-20] MEDS ORDERED: LIDOCAINE (4%) 40 MG/ML TOPICAL SOLN 50 ML BOTTLE TP ONE (11:01)
== END 2020-10-20 10:54 | disposition home or self-care (01) ==
LOC: WOUND 10:53
PROVIDERS: ATTEND Surgery
DX: L97.312 Non-pressure chronic ulcer of right ankle with fat layer exposed (principal); L97.322 Non-pressure chronic ulcer of left ankle with fat layer exposed; D57.1 Sickle-cell disease without crisis; I73.9 Peripheral vascular disease, unspecified; K21.9 Gastro-esophageal reflux disease without esophagitis; G62.9 Polyneuropathy, unspecified; Z90.49 Acquired absence of other specified parts of digestive tract
CPT/HCPCS: 29581

== ENCOUNTER 2020-10-27 13:57 | Outpatient (CLI) | payer MEDICAID ==
[2020-10-27] MEDS ORDERED: LIDOCAINE (4%) 40 MG/ML TOPICAL SOLN 50 ML BOTTLE TP SCH (14:00)
== END 2020-10-27 13:58 | disposition home or self-care (01) ==
LOC: WOUND 13:57
PROVIDERS: ATTEND Surgery
DX: L97.312 Non-pressure chronic ulcer of right ankle with fat layer exposed (principal); L97.322 Non-pressure chronic ulcer of left ankle with fat layer exposed; D57.1 Sickle-cell disease without crisis; I73.9 Peripheral vascular disease, unspecified; K21.9 Gastro-esophageal reflux disease without esophagitis; G62.9 Polyneuropathy, unspecified; Z90.49 Acquired absence of other specified parts of digestive tract
CPT/HCPCS: 29581

== ENCOUNTER 2020-11-10 10:47 | Outpatient (CLI) | payer MEDICAID ==
[2020-11-10] MEDS ORDERED: LIDOCAINE (4%) 40 MG/ML TOPICAL SOLN 50 ML BOTTLE TP ONE (10:56)
== END 2020-11-10 10:48 | disposition home or self-care (01) ==
LOC: WOUND 10:47
PROVIDERS: ATTEND Surgery
DX: L97.312 Non-pressure chronic ulcer of right ankle with fat layer exposed (principal); L97.322 Non-pressure chronic ulcer of left ankle with fat layer exposed; D57.1 Sickle-cell disease without crisis; I73.9 Peripheral vascular disease, unspecified; K21.9 Gastro-esophageal reflux disease without esophagitis; G62.9 Polyneuropathy, unspecified; Z90.49 Acquired absence of other specified parts of digestive tract
CPT/HCPCS: 29581

== ENCOUNTER 2020-11-24 10:50 | Outpatient (CLI) | payer MEDICAID ==
[2020-11-24] MEDS ORDERED: VITAMIN A & D OINT 56.7 GM TP ONE (10:57)
[2020-11-24] MEDS ORDERED: LIDOCAINE (4%) 40 MG/ML TOPICAL SOLN 50 ML BOTTLE TP ONE (11:14)
== END 2020-11-24 10:51 | disposition home or self-care (01) ==
LOC: WOUND 10:50
PROVIDERS: ATTEND Surgery
DX: L97.312 Non-pressure chronic ulcer of right ankle with fat layer exposed (principal); L97.322 Non-pressure chronic ulcer of left ankle with fat layer exposed; D57.1 Sickle-cell disease without crisis; I73.9 Peripheral vascular disease, unspecified; K21.9 Gastro-esophageal reflux disease without esophagitis; G62.9 Polyneuropathy, unspecified; Z90.49 Acquired absence of other specified parts of digestive tract

== ENCOUNTER 2020-12-15 10:58 | Outpatient (CLI) | payer MEDICAID | END 2020-12-15 10:59 | disposition home or self-care (01) | LOC: WOUND 10:58 | PROVIDERS: ATTEND Surgery | DX: L97.312 Non-pressure chronic ulcer of right ankle with fat layer exposed (principal); L97.322 Non-pressure chronic ulcer of left ankle with fat layer exposed; D57.1 Sickle-cell disease without crisis; I73.9 Peripheral vascular disease, unspecified; K21.9 Gastro-esophageal reflux disease without esophagitis; G62.9 Polyneuropathy, unspecified; Z90.49 Acquired absence of other specified parts of digestive tract | CPT/HCPCS: 29581 ==

== ENCOUNTER 2020-12-29 10:54 | Outpatient (CLI) | payer MEDICAID ==
[2020-12-29] MEDS ORDERED: LIDOCAINE (4%) 40 MG/ML TOPICAL SOLN 50 ML BOTTLE TP ONE (11:27)
== END 2020-12-29 10:55 | disposition home or self-care (01) ==
LOC: WOUND 10:54
PROVIDERS: ATTEND Surgery
DX: L97.312 Non-pressure chronic ulcer of right ankle with fat layer exposed (principal); L97.322 Non-pressure chronic ulcer of left ankle with fat layer exposed; D57.1 Sickle-cell disease without crisis; I73.9 Peripheral vascular disease, unspecified; K21.9 Gastro-esophageal reflux disease without esophagitis; G62.9 Polyneuropathy, unspecified; Z90.49 Acquired absence of other specified parts of digestive tract
CPT/HCPCS: 29581

== ENCOUNTER 2021-01-19 10:23 | Outpatient (CLI) | payer MEDICAID | END 2021-01-19 10:24 | disposition home or self-care (01) | LOC: WOUND 10:23 | PROVIDERS: ATTEND Surgery | DX: L97.312 Non-pressure chronic ulcer of right ankle with fat layer exposed (principal); L97.322 Non-pressure chronic ulcer of left ankle with fat layer exposed; D57.1 Sickle-cell disease without crisis; I73.9 Peripheral vascular disease, unspecified; K21.9 Gastro-esophageal reflux disease without esophagitis; G62.9 Polyneuropathy, unspecified; Z90.49 Acquired absence of other specified parts of digestive tract | CPT/HCPCS: 29581 ==

== ENCOUNTER 2021-01-19 10:56 | Outpatient (CLI) | payer MEDICAID ==
[2021-01-19] MEDS ORDERED: LIDOCAINE (4%) 40 MG/ML TOPICAL SOLN 50 ML BOTTLE TP ONE (11:32)
== END 2021-01-19 10:57 | disposition home or self-care (01) ==
LOC: WOUND 10:56
PROVIDERS: ATTEND Surgery
DX: L97.312 Non-pressure chronic ulcer of right ankle with fat layer exposed (principal); L97.322 Non-pressure chronic ulcer of left ankle with fat layer exposed; D57.1 Sickle-cell disease without crisis; I73.9 Peripheral vascular disease, unspecified; K21.9 Gastro-esophageal reflux disease without esophagitis; G62.9 Polyneuropathy, unspecified; Z90.49 Acquired absence of other specified parts of digestive tract
CPT/HCPCS: 29581

== ENCOUNTER 2021-01-26 10:29 | Outpatient (CLI) | payer MEDICAID ==
[2021-01-26] MEDS ORDERED: LIDOCAINE (4%) 40 MG/ML TOPICAL SOLN 50 ML BOTTLE TP ONE (10:39)
== END 2021-01-26 10:30 | disposition home or self-care (01) ==
LOC: WOUND 10:29
PROVIDERS: ATTEND Surgery
DX: L97.312 Non-pressure chronic ulcer of right ankle with fat layer exposed (principal); L97.322 Non-pressure chronic ulcer of left ankle with fat layer exposed; D57.1 Sickle-cell disease without crisis; I73.9 Peripheral vascular disease, unspecified; K21.9 Gastro-esophageal reflux disease without esophagitis; G62.9 Polyneuropathy, unspecified; Z90.49 Acquired absence of other specified parts of digestive tract
CPT/HCPCS: 29581

== ENCOUNTER 2021-02-02 10:33 | Outpatient (CLI) | payer MEDICAID ==
[2021-02-02] MEDS ORDERED: LIDOCAINE (4%) 40 MG/ML TOPICAL SOLN 50 ML BOTTLE TP ONE (12:00)
== END 2021-02-02 10:34 | disposition home or self-care (01) ==
LOC: WOUND 10:33
PROVIDERS: ATTEND Surgery
DX: L97.312 Non-pressure chronic ulcer of right ankle with fat layer exposed (principal); L97.322 Non-pressure chronic ulcer of left ankle with fat layer exposed; D57.1 Sickle-cell disease without crisis; I73.9 Peripheral vascular disease, unspecified; K21.9 Gastro-esophageal reflux disease without esophagitis; G62.9 Polyneuropathy, unspecified; Z90.49 Acquired absence of other specified parts of digestive tract
CPT/HCPCS: 29581

== ENCOUNTER 2021-02-09 09:56 | Outpatient (CLI) | payer MEDICAID ==
[2021-02-09] MEDS ORDERED: LIDOCAINE (4%) 40 MG/ML TOPICAL SOLN 50 ML BOTTLE TP SCH (11:00)
== END 2021-02-09 09:57 | disposition home or self-care (01) ==
LOC: WOUND 09:56
PROVIDERS: ATTEND Surgery
DX: L97.312 Non-pressure chronic ulcer of right ankle with fat layer exposed (principal); L97.322 Non-pressure chronic ulcer of left ankle with fat layer exposed; D57.1 Sickle-cell disease without crisis; I73.9 Peripheral vascular disease, unspecified; K21.9 Gastro-esophageal reflux disease without esophagitis; G62.9 Polyneuropathy, unspecified; Z90.49 Acquired absence of other specified parts of digestive tract
CPT/HCPCS: 29581

== ENCOUNTER 2021-02-16 11:08 | Outpatient (CLI) | payer MEDICAID ==
[2021-02-16] MEDS ORDERED: LIDOCAINE (4%) 40 MG/ML TOPICAL SOLN 50 ML BOTTLE TP ONE (11:58)
== END 2021-02-16 11:09 | disposition home or self-care (01) ==
LOC: WOUND 11:08
PROVIDERS: ATTEND Surgery
DX: L97.312 Non-pressure chronic ulcer of right ankle with fat layer exposed (principal); L97.322 Non-pressure chronic ulcer of left ankle with fat layer exposed; D57.1 Sickle-cell disease without crisis; I73.9 Peripheral vascular disease, unspecified; K21.9 Gastro-esophageal reflux disease without esophagitis; G62.9 Polyneuropathy, unspecified; Z90.49 Acquired absence of other specified parts of digestive tract
CPT/HCPCS: 29581

== ENCOUNTER 2021-02-23 09:28 | Outpatient (CLI) | payer MEDICAID ==
[2021-02-23] MEDS ORDERED: LIDOCAINE (4%) 40 MG/ML TOPICAL SOLN 50 ML BOTTLE TP SCH (10:00)
== END 2021-02-23 09:29 | disposition home or self-care (01) ==
LOC: WOUND 09:28
PROVIDERS: ATTEND Surgery
DX: L97.312 Non-pressure chronic ulcer of right ankle with fat layer exposed (principal); L97.322 Non-pressure chronic ulcer of left ankle with fat layer exposed; D57.1 Sickle-cell disease without crisis; I73.9 Peripheral vascular disease, unspecified; K21.9 Gastro-esophageal reflux disease without esophagitis; G62.9 Polyneuropathy, unspecified; Z90.49 Acquired absence of other specified parts of digestive tract
CPT/HCPCS: 29581

== ENCOUNTER 2021-03-02 10:40 | Outpatient (CLI) | payer MEDICAID ==
[2021-03-02] MEDS ORDERED: LIDOCAINE (4%) 40 MG/ML TOPICAL SOLN 50 ML BOTTLE TP ONE (14:48)
== END 2021-03-02 10:41 | disposition home or self-care (01) ==
LOC: WOUND 10:40
PROVIDERS: ATTEND Surgery
DX: L97.312 Non-pressure chronic ulcer of right ankle with fat layer exposed (principal); L97.322 Non-pressure chronic ulcer of left ankle with fat layer exposed; D57.1 Sickle-cell disease without crisis; I73.9 Peripheral vascular disease, unspecified; K21.9 Gastro-esophageal reflux disease without esophagitis; G62.9 Polyneuropathy, unspecified; Z90.49 Acquired absence of other specified parts of digestive tract
CPT/HCPCS: 29581

== ENCOUNTER 2021-03-09 10:41 | Outpatient (CLI) | payer MEDICAID ==
[2021-03-09] MEDS ORDERED: LIDOCAINE (4%) 40 MG/ML TOPICAL SOLN 50 ML BOTTLE TP ONE (11:02)
[2021-03-09] MEDS ORDERED: VITAMIN A & D OINT 56.7 GM TP SCH (13:00)
== END 2021-03-09 10:42 | disposition home or self-care (01) ==
LOC: WOUND 10:41
PROVIDERS: ATTEND Surgery
DX: L97.312 Non-pressure chronic ulcer of right ankle with fat layer exposed (principal); L97.322 Non-pressure chronic ulcer of left ankle with fat layer exposed; D57.1 Sickle-cell disease without crisis; I73.9 Peripheral vascular disease, unspecified; K21.9 Gastro-esophageal reflux disease without esophagitis; G62.9 Polyneuropathy, unspecified; Z90.49 Acquired absence of other specified parts of digestive tract
CPT/HCPCS: 11042; 11045; A6250; 29581

== ENCOUNTER 2021-03-30 10:22 | Outpatient (CLI) | payer MEDICAID ==
[2021-03-30] MEDS ORDERED: LIDOCAINE (4%) 40 MG/ML TOPICAL SOLN 50 ML BOTTLE TP ONE (10:45)
== END 2021-03-30 10:23 | disposition home or self-care (01) ==
LOC: WOUND 10:22
PROVIDERS: ATTEND Surgery
DX: L97.312 Non-pressure chronic ulcer of right ankle with fat layer exposed (principal); L97.322 Non-pressure chronic ulcer of left ankle with fat layer exposed; D57.1 Sickle-cell disease without crisis; I73.9 Peripheral vascular disease, unspecified; K21.9 Gastro-esophageal reflux disease without esophagitis; G62.9 Polyneuropathy, unspecified; Z90.49 Acquired absence of other specified parts of digestive tract
CPT/HCPCS: 29581

== ENCOUNTER 2021-04-06 10:41 | Outpatient (CLI) | payer MEDICAID ==
[2021-04-06] MEDS ORDERED: LIDOCAINE (4%) 40 MG/ML TOPICAL SOLN 50 ML BOTTLE TP SCH (11:00)
== END 2021-04-06 10:42 | disposition home or self-care (01) ==
LOC: WOUND 10:41
PROVIDERS: ATTEND Surgery
DX: L97.312 Non-pressure chronic ulcer of right ankle with fat layer exposed (principal); L97.322 Non-pressure chronic ulcer of left ankle with fat layer exposed; D57.1 Sickle-cell disease without crisis; I73.9 Peripheral vascular disease, unspecified; K21.9 Gastro-esophageal reflux disease without esophagitis; G62.9 Polyneuropathy, unspecified; Z90.49 Acquired absence of other specified parts of digestive tract
CPT/HCPCS: 29581

== ENCOUNTER 2021-04-13 10:44 | Outpatient (CLI) | payer MEDICAID ==
[2021-04-13] MEDS ORDERED: LIDOCAINE (4%) 40 MG/ML TOPICAL SOLN 50 ML BOTTLE TP ONE (10:47)
== END 2021-04-13 10:45 | disposition home or self-care (01) ==
LOC: WOUND 10:44
PROVIDERS: ATTEND Surgery
DX: L97.312 Non-pressure chronic ulcer of right ankle with fat layer exposed (principal); L97.322 Non-pressure chronic ulcer of left ankle with fat layer exposed; L97.522 Non-pressure chronic ulcer of other part of left foot with fat layer exposed; D57.1 Sickle-cell disease without crisis; I73.9 Peripheral vascular disease, unspecified; K21.9 Gastro-esophageal reflux disease without esophagitis; G62.9 Polyneuropathy, unspecified; Z90.49 Acquired absence of other specified parts of digestive tract
CPT/HCPCS: 29581

== ENCOUNTER 2021-04-20 10:42 | Outpatient (CLI) | payer MEDICAID ==
[2021-04-20] MEDS ORDERED: LIDOCAINE (4%) 40 MG/ML TOPICAL SOLN 50 ML BOTTLE TP ONE (11:30)
== END 2021-04-20 10:43 | disposition home or self-care (01) ==
LOC: WOUND 10:42
PROVIDERS: ATTEND Surgery
DX: L97.312 Non-pressure chronic ulcer of right ankle with fat layer exposed (principal); L97.322 Non-pressure chronic ulcer of left ankle with fat layer exposed; D57.1 Sickle-cell disease without crisis; I73.9 Peripheral vascular disease, unspecified; K21.9 Gastro-esophageal reflux disease without esophagitis; G62.9 Polyneuropathy, unspecified; Z90.49 Acquired absence of other specified parts of digestive tract
CPT/HCPCS: 29581

== ENCOUNTER 2021-04-27 10:48 | Outpatient (CLI) | payer MEDICAID ==
[2021-04-27] MEDS ORDERED: LIDOCAINE (4%) 40 MG/ML TOPICAL SOLN 50 ML BOTTLE TP ONE (10:49)
== END 2021-04-27 10:49 | disposition home or self-care (01) ==
LOC: WOUND 10:48
PROVIDERS: ATTEND Surgery
DX: L97.312 Non-pressure chronic ulcer of right ankle with fat layer exposed (principal); L97.322 Non-pressure chronic ulcer of left ankle with fat layer exposed; L97.522 Non-pressure chronic ulcer of other part of left foot with fat layer exposed; D57.1 Sickle-cell disease without crisis; I73.9 Peripheral vascular disease, unspecified; K21.9 Gastro-esophageal reflux disease without esophagitis; G62.9 Polyneuropathy, unspecified; Z90.49 Acquired absence of other specified parts of digestive tract
CPT/HCPCS: 29581

== ENCOUNTER 2021-05-04 11:07 | Outpatient (CLI) | payer MEDICAID ==
[2021-05-04] MEDS ORDERED: LIDOCAINE (4%) 40 MG/ML TOPICAL SOLN 50 ML BOTTLE TP ONE (11:56)
== END 2021-05-04 11:08 | disposition home or self-care (01) ==
LOC: WOUND 11:07
PROVIDERS: ATTEND Surgery
DX: L97.312 Non-pressure chronic ulcer of right ankle with fat layer exposed (principal); L97.322 Non-pressure chronic ulcer of left ankle with fat layer exposed; L97.522 Non-pressure chronic ulcer of other part of left foot with fat layer exposed; D57.1 Sickle-cell disease without crisis; I73.9 Peripheral vascular disease, unspecified; K21.9 Gastro-esophageal reflux disease without esophagitis; G62.9 Polyneuropathy, unspecified; Z90.49 Acquired absence of other specified parts of digestive tract
CPT/HCPCS: 29581

== ENCOUNTER 2021-05-11 10:46 | Outpatient (CLI) | payer MEDICAID ==
[2021-05-11] MEDS ORDERED: LIDOCAINE (4%) 40 MG/ML TOPICAL SOLN 50 ML BOTTLE TP ONE (12:29)
== END 2021-05-11 10:47 | disposition home or self-care (01) ==
LOC: WOUND 10:46
PROVIDERS: ATTEND Surgery
DX: L97.312 Non-pressure chronic ulcer of right ankle with fat layer exposed (principal); L97.322 Non-pressure chronic ulcer of left ankle with fat layer exposed; L97.522 Non-pressure chronic ulcer of other part of left foot with fat layer exposed; D57.1 Sickle-cell disease without crisis; I73.9 Peripheral vascular disease, unspecified; K21.9 Gastro-esophageal reflux disease without esophagitis; G62.9 Polyneuropathy, unspecified; Z90.49 Acquired absence of other specified parts of digestive tract
CPT/HCPCS: 29581

== ENCOUNTER 2021-05-18 10:46 | Outpatient (CLI) | payer MEDICAID ==
[2021-05-18] MEDS ORDERED: LIDOCAINE (4%) 40 MG/ML TOPICAL SOLN 50 ML BOTTLE TP ONE (10:54)
== END 2021-05-18 10:47 | disposition home or self-care (01) ==
LOC: WOUND 10:46
PROVIDERS: ATTEND Surgery
DX: L97.312 Non-pressure chronic ulcer of right ankle with fat layer exposed (principal); L97.322 Non-pressure chronic ulcer of left ankle with fat layer exposed; L97.522 Non-pressure chronic ulcer of other part of left foot with fat layer exposed; D57.1 Sickle-cell disease without crisis; I73.9 Peripheral vascular disease, unspecified; K21.9 Gastro-esophageal reflux disease without esophagitis; G62.9 Polyneuropathy, unspecified; Z90.49 Acquired absence of other specified parts of digestive tract
CPT/HCPCS: 29581

== ENCOUNTER 2021-05-25 10:50 | Outpatient (CLI) | payer MEDICAID ==
[2021-05-25] MEDS ORDERED: LIDOCAINE (4%) 40 MG/ML TOPICAL SOLN 50 ML BOTTLE TP ONE (11:54)
== END 2021-05-25 10:51 | disposition home or self-care (01) ==
LOC: WOUND 10:50
PROVIDERS: ATTEND Surgery
DX: L97.312 Non-pressure chronic ulcer of right ankle with fat layer exposed (principal); L97.322 Non-pressure chronic ulcer of left ankle with fat layer exposed; L97.522 Non-pressure chronic ulcer of other part of left foot with fat layer exposed; D57.1 Sickle-cell disease without crisis; I73.9 Peripheral vascular disease, unspecified; K21.9 Gastro-esophageal reflux disease without esophagitis; G62.9 Polyneuropathy, unspecified; Z90.49 Acquired absence of other specified parts of digestive tract
CPT/HCPCS: 29581

== ENCOUNTER 2021-06-01 10:36 | Outpatient (CLI) | payer MEDICAID ==
[2021-06-01] MEDS ORDERED: LIDOCAINE (4%) 40 MG/ML TOPICAL SOLN 50 ML BOTTLE TP ONE (10:40)
== END 2021-06-01 10:37 | disposition home or self-care (01) ==
LOC: WOUND 10:36
PROVIDERS: ATTEND Surgery
DX: L97.312 Non-pressure chronic ulcer of right ankle with fat layer exposed (principal); L97.322 Non-pressure chronic ulcer of left ankle with fat layer exposed; L97.522 Non-pressure chronic ulcer of other part of left foot with fat layer exposed; D57.1 Sickle-cell disease without crisis; I73.9 Peripheral vascular disease, unspecified; K21.9 Gastro-esophageal reflux disease without esophagitis; G62.9 Polyneuropathy, unspecified; Z90.49 Acquired absence of other specified parts of digestive tract
CPT/HCPCS: 29581

== ENCOUNTER 2021-06-08 10:43 | Outpatient (CLI) | payer MEDICAID ==
[2021-06-08] MEDS ORDERED: LIDOCAINE (4%) 40 MG/ML TOPICAL SOLN 50 ML BOTTLE TP ONE (10:49)
[2021-06-08] MEDS ORDERED: VITAMIN A & D OINT 56.7 GM TP PRN (10:49)
== END 2021-06-08 10:44 | disposition home or self-care (01) ==
LOC: WOUND 10:43
PROVIDERS: ATTEND Surgery
DX: L97.312 Non-pressure chronic ulcer of right ankle with fat layer exposed (principal); L97.322 Non-pressure chronic ulcer of left ankle with fat layer exposed; L97.522 Non-pressure chronic ulcer of other part of left foot with fat layer exposed; D57.1 Sickle-cell disease without crisis; I73.9 Peripheral vascular disease, unspecified; K21.9 Gastro-esophageal reflux disease without esophagitis; G62.9 Polyneuropathy, unspecified; Z90.49 Acquired absence of other specified parts of digestive tract
CPT/HCPCS: 29581

== ENCOUNTER 2021-06-15 10:46 | Outpatient (CLI) | payer MEDICAID ==
[2021-06-15] MEDS ORDERED: LIDOCAINE (4%) 40 MG/ML TOPICAL SOLN 50 ML BOTTLE TP ONE (10:58)
== END 2021-06-15 10:47 | disposition home or self-care (01) ==
LOC: WOUND 10:46
PROVIDERS: ATTEND Surgery
DX: L97.312 Non-pressure chronic ulcer of right ankle with fat layer exposed (principal); L97.322 Non-pressure chronic ulcer of left ankle with fat layer exposed; L97.522 Non-pressure chronic ulcer of other part of left foot with fat layer exposed; D57.1 Sickle-cell disease without crisis; I73.9 Peripheral vascular disease, unspecified; K21.9 Gastro-esophageal reflux disease without esophagitis; G62.9 Polyneuropathy, unspecified; Z90.49 Acquired absence of other specified parts of digestive tract

== ENCOUNTER 2021-06-22 11:01 | Outpatient (CLI) | payer MEDICAID ==
[2021-06-22] MEDS ORDERED: LIDOCAINE (4%) 40 MG/ML TOPICAL SOLN 50 ML BOTTLE TP ONE (11:09)
== END 2021-06-22 11:02 | disposition home or self-care (01) ==
LOC: WOUND 11:01
PROVIDERS: ATTEND Surgery
DX: L97.312 Non-pressure chronic ulcer of right ankle with fat layer exposed (principal); L97.322 Non-pressure chronic ulcer of left ankle with fat layer exposed; L97.522 Non-pressure chronic ulcer of other part of left foot with fat layer exposed; D57.1 Sickle-cell disease without crisis; I73.9 Peripheral vascular disease, unspecified; K21.9 Gastro-esophageal reflux disease without esophagitis; G62.9 Polyneuropathy, unspecified; Z90.49 Acquired absence of other specified parts of digestive tract
CPT/HCPCS: 29581

== ENCOUNTER 2021-07-06 10:42 | Outpatient (CLI) | payer MEDICAID ==
[2021-07-06] MEDS ORDERED: LIDOCAINE (4%) 40 MG/ML TOPICAL SOLN 50 ML BOTTLE TP ONE (11:03)
== END 2021-07-06 10:43 | disposition home or self-care (01) ==
LOC: WOUND 10:42
PROVIDERS: ATTEND Surgery
DX: L97.312 Non-pressure chronic ulcer of right ankle with fat layer exposed (principal); L97.322 Non-pressure chronic ulcer of left ankle with fat layer exposed; L97.522 Non-pressure chronic ulcer of other part of left foot with fat layer exposed; D57.1 Sickle-cell disease without crisis; I73.9 Peripheral vascular disease, unspecified; K21.9 Gastro-esophageal reflux disease without esophagitis; G62.9 Polyneuropathy, unspecified; Z90.49 Acquired absence of other specified parts of digestive tract
CPT/HCPCS: 29581

== ENCOUNTER 2021-07-13 10:45 | Outpatient (CLI) | payer MEDICAID ==
[2021-07-13] MEDS ORDERED: LIDOCAINE (4%) 40 MG/ML TOPICAL SOLN 50 ML BOTTLE TP ONE (11:21)
== END 2021-07-13 10:46 | disposition home or self-care (01) ==
LOC: WOUND 10:45
PROVIDERS: ATTEND Surgery
DX: L97.312 Non-pressure chronic ulcer of right ankle with fat layer exposed (principal); L97.322 Non-pressure chronic ulcer of left ankle with fat layer exposed; L97.522 Non-pressure chronic ulcer of other part of left foot with fat layer exposed; S90.412D Abrasion, left great toe, subsequent encounter; D57.1 Sickle-cell disease without crisis; I73.9 Peripheral vascular disease, unspecified; K21.9 Gastro-esophageal reflux disease without esophagitis; G62.9 Polyneuropathy, unspecified; Z90.49 Acquired absence of other specified parts of digestive tract; X58.XXXD Exposure to other specified factors, subsequent encounter
CPT/HCPCS: 29581

== ENCOUNTER 2021-07-27 10:46 | Outpatient (CLI) | payer MEDICAID ==
[2021-07-27] MEDS ORDERED: LIDOCAINE (4%) 40 MG/ML TOPICAL SOLN 50 ML BOTTLE TP ONE (11:46)
== END 2021-07-27 10:47 | disposition home or self-care (01) ==
LOC: WOUND 10:46
PROVIDERS: ATTEND Surgery
DX: L97.312 Non-pressure chronic ulcer of right ankle with fat layer exposed (principal); L97.322 Non-pressure chronic ulcer of left ankle with fat layer exposed; L97.522 Non-pressure chronic ulcer of other part of left foot with fat layer exposed; S90.412D Abrasion, left great toe, subsequent encounter; D57.1 Sickle-cell disease without crisis; I73.9 Peripheral vascular disease, unspecified; K21.9 Gastro-esophageal reflux disease without esophagitis; G62.9 Polyneuropathy, unspecified; Z90.49 Acquired absence of other specified parts of digestive tract; X58.XXXD Exposure to other specified factors, subsequent encounter
CPT/HCPCS: 29581

== ENCOUNTER 2021-08-03 10:44 | Outpatient (CLI) | payer MEDICAID ==
[2021-08-03] MEDS ORDERED: LIDOCAINE (4%) 40 MG/ML TOPICAL SOLN 50 ML BOTTLE TP ONE (12:35)
== END 2021-08-03 10:45 | disposition home or self-care (01) ==
LOC: WOUND 10:44
PROVIDERS: ATTEND Surgery
DX: L97.312 Non-pressure chronic ulcer of right ankle with fat layer exposed (principal); L97.322 Non-pressure chronic ulcer of left ankle with fat layer exposed; L97.522 Non-pressure chronic ulcer of other part of left foot with fat layer exposed; D57.1 Sickle-cell disease without crisis; I74.3 Embolism and thrombosis of arteries of the lower extremities; I87.8 Other specified disorders of veins; K21.9 Gastro-esophageal reflux disease without esophagitis; G62.9 Polyneuropathy, unspecified; Z79.899 Other long term (current) drug therapy; Z90.49 Acquired absence of other specified parts of digestive tract
CPT/HCPCS: 29581

== ENCOUNTER 2021-08-10 09:19 | Outpatient (CLI) | payer MEDICAID ==
[2021-08-10] MEDS ORDERED: LIDOCAINE (4%) 40 MG/ML TOPICAL SOLN 50 ML BOTTLE TP ONE (11:04)
== END 2021-08-10 09:20 | disposition home or self-care (01) ==
LOC: WOUND 09:19
PROVIDERS: ATTEND Surgery
DX: L97.312 Non-pressure chronic ulcer of right ankle with fat layer exposed (principal); L97.322 Non-pressure chronic ulcer of left ankle with fat layer exposed; L97.522 Non-pressure chronic ulcer of other part of left foot with fat layer exposed; D57.1 Sickle-cell disease without crisis; I74.3 Embolism and thrombosis of arteries of the lower extremities; I87.8 Other specified disorders of veins; K21.9 Gastro-esophageal reflux disease without esophagitis; G62.9 Polyneuropathy, unspecified; Z79.899 Other long term (current) drug therapy; Z90.49 Acquired absence of other specified parts of digestive tract
CPT/HCPCS: 29581

== ENCOUNTER 2021-08-17 10:43 | Outpatient (CLI) | payer MEDICAID | END 2021-08-17 10:44 | disposition home or self-care (01) | LOC: WOUND 10:43 | PROVIDERS: ATTEND Surgery | DX: L97.312 Non-pressure chronic ulcer of right ankle with fat layer exposed (principal); L97.322 Non-pressure chronic ulcer of left ankle with fat layer exposed; L97.522 Non-pressure chronic ulcer of other part of left foot with fat layer exposed; D57.1 Sickle-cell disease without crisis; I74.3 Embolism and thrombosis of arteries of the lower extremities; I87.8 Other specified disorders of veins; K21.9 Gastro-esophageal reflux disease without esophagitis; G62.9 Polyneuropathy, unspecified; Z79.899 Other long term (current) drug therapy; Z90.49 Acquired absence of other specified parts of digestive tract | CPT/HCPCS: 29581 ==

== ENCOUNTER 2021-08-24 10:40 | Outpatient (CLI) | payer MEDICAID ==
[2021-08-24] MEDS ORDERED: LIDOCAINE (4%) 40 MG/ML TOPICAL SOLN 50 ML BOTTLE TP ONE (11:22)
== END 2021-08-24 10:41 | disposition home or self-care (01) ==
LOC: WOUND 10:40
PROVIDERS: ATTEND Surgery
DX: L97.312 Non-pressure chronic ulcer of right ankle with fat layer exposed (principal); L97.322 Non-pressure chronic ulcer of left ankle with fat layer exposed; L97.522 Non-pressure chronic ulcer of other part of left foot with fat layer exposed; D57.1 Sickle-cell disease without crisis; I74.3 Embolism and thrombosis of arteries of the lower extremities; I87.8 Other specified disorders of veins; K21.9 Gastro-esophageal reflux disease without esophagitis; G62.9 Polyneuropathy, unspecified; Z79.899 Other long term (current) drug therapy; Z90.49 Acquired absence of other specified parts of digestive tract

== ENCOUNTER 2021-08-31 10:39 | Outpatient (CLI) | payer MEDICAID ==
[2021-08-31] MEDS ORDERED: LIDOCAINE (4%) 40 MG/ML TOPICAL SOLN 50 ML BOTTLE TP ONE (11:24)
[2021-08-31] MEDS ORDERED: LIDOCAINE (4%) 40 MG/ML TOPICAL SOLN 50 ML BOTTLE TP SCH (11:30)
== END 2021-08-31 10:40 | disposition home or self-care (01) ==
LOC: WOUND 10:39
PROVIDERS: ATTEND Surgery
DX: L97.312 Non-pressure chronic ulcer of right ankle with fat layer exposed (principal); L97.322 Non-pressure chronic ulcer of left ankle with fat layer exposed; L97.522 Non-pressure chronic ulcer of other part of left foot with fat layer exposed; D57.1 Sickle-cell disease without crisis; I74.3 Embolism and thrombosis of arteries of the lower extremities; I87.8 Other specified disorders of veins; K21.9 Gastro-esophageal reflux disease without esophagitis; G62.9 Polyneuropathy, unspecified; Z79.899 Other long term (current) drug therapy; Z90.49 Acquired absence of other specified parts of digestive tract

== ENCOUNTER 2021-09-07 10:26 | Outpatient (CLI) | payer MEDICAID ==
[2021-09-07] MEDS ORDERED: LIDOCAINE (4%) 40 MG/ML TOPICAL SOLN 50 ML BOTTLE TP SCH (11:00)
== END 2021-09-07 10:27 | disposition home or self-care (01) ==
LOC: WOUND 10:26
PROVIDERS: ATTEND Surgery
DX: L97.312 Non-pressure chronic ulcer of right ankle with fat layer exposed (principal); L97.322 Non-pressure chronic ulcer of left ankle with fat layer exposed; D57.1 Sickle-cell disease without crisis; L97.522 Non-pressure chronic ulcer of other part of left foot with fat layer exposed; I87.8 Other specified disorders of veins; I74.3 Embolism and thrombosis of arteries of the lower extremities; K21.9 Gastro-esophageal reflux disease without esophagitis; G62.9 Polyneuropathy, unspecified; Z90.49 Acquired absence of other specified parts of digestive tract; Z79.899 Other long term (current) drug therapy
CPT/HCPCS: 29581

== ENCOUNTER 2021-09-14 10:16 | Outpatient (CLI) | payer MEDICAID ==
[2021-09-14] MEDS ORDERED: LIDOCAINE (4%) 40 MG/ML TOPICAL SOLN 50 ML BOTTLE TP ONE (10:24)
== END 2021-09-14 10:17 | disposition home or self-care (01) ==
LOC: WOUND 10:16
PROVIDERS: ATTEND Surgery
DX: L97.312 Non-pressure chronic ulcer of right ankle with fat layer exposed (principal); L97.322 Non-pressure chronic ulcer of left ankle with fat layer exposed; D57.1 Sickle-cell disease without crisis; L97.522 Non-pressure chronic ulcer of other part of left foot with fat layer exposed; I87.8 Other specified disorders of veins; I74.3 Embolism and thrombosis of arteries of the lower extremities; K21.9 Gastro-esophageal reflux disease without esophagitis; G62.9 Polyneuropathy, unspecified; Z90.49 Acquired absence of other specified parts of digestive tract; Z79.899 Other long term (current) drug therapy
CPT/HCPCS: 29581

== ENCOUNTER 2021-09-14 13:42 | Outpatient (CLI) | payer MEDICAID ==
--- NOTE | 2021-09-14 14:45 | XRay Report ---
RIGHT FOOT 3 VIEW(S) INDICATION / CLINICAL INFORMATION: RIGHT FOOT PAIN COMPARISON: None available. FINDINGS: Evaluation of the midfoot and hindfoot is obscured secondary to overlying bandaging. BONES / JOINT(S): No definite acute fracture or subluxation. No significant arthritis. SOFT TISSUES: No significant abnormality. ADDITIONAL FINDINGS: None. Signer Name: Erasmo García MD Signed: 09/14/2021 2:41 PM Workstation Name: [id number]
== END 2021-09-14 13:43 | disposition home or self-care (01) ==
LOC: XRAY 13:42
PROVIDERS: ATTEND Surgery
DX: M79.671 Pain in right foot (principal)

== ENCOUNTER 2021-09-28 10:00 | Outpatient (CLI) | payer MEDICAID ==
[2021-09-28] MEDS ORDERED: LIDOCAINE (4%) 40 MG/ML TOPICAL SOLN 50 ML BOTTLE TP ONE (10:12)
== END 2021-09-28 10:01 | disposition home or self-care (01) ==
LOC: WOUND 10:00
PROVIDERS: ATTEND Surgery
DX: L97.312 Non-pressure chronic ulcer of right ankle with fat layer exposed (principal); L97.322 Non-pressure chronic ulcer of left ankle with fat layer exposed; D57.1 Sickle-cell disease without crisis; L97.522 Non-pressure chronic ulcer of other part of left foot with fat layer exposed; I87.8 Other specified disorders of veins; I74.3 Embolism and thrombosis of arteries of the lower extremities; K21.9 Gastro-esophageal reflux disease without esophagitis; G62.9 Polyneuropathy, unspecified; Z90.49 Acquired absence of other specified parts of digestive tract; Z79.899 Other long term (current) drug therapy
CPT/HCPCS: 29581

== ENCOUNTER 2021-10-05 10:15 | Outpatient (CLI) | payer MEDICAID ==
[2021-10-05] MEDS ORDERED: LIDOCAINE (4%) 40 MG/ML TOPICAL SOLN 50 ML BOTTLE TP ONE (10:41)
== END 2021-10-05 10:16 | disposition home or self-care (01) ==
LOC: WOUND 10:15
PROVIDERS: ATTEND Surgery
DX: L97.312 Non-pressure chronic ulcer of right ankle with fat layer exposed (principal); L97.322 Non-pressure chronic ulcer of left ankle with fat layer exposed; D57.1 Sickle-cell disease without crisis; L97.522 Non-pressure chronic ulcer of other part of left foot with fat layer exposed; I87.8 Other specified disorders of veins; I74.3 Embolism and thrombosis of arteries of the lower extremities; K21.9 Gastro-esophageal reflux disease without esophagitis; G62.9 Polyneuropathy, unspecified; Z90.49 Acquired absence of other specified parts of digestive tract; Z79.899 Other long term (current) drug therapy
CPT/HCPCS: 29581

== ENCOUNTER 2021-10-12 10:16 | Outpatient (CLI) | payer MEDICAID ==
[2021-10-12] MEDS ORDERED: LIDOCAINE (4%) 40 MG/ML TOPICAL SOLN 50 ML BOTTLE TP ONE (10:42)
== END 2021-10-12 10:17 | disposition home or self-care (01) ==
LOC: WOUND 10:16
PROVIDERS: ATTEND Surgery
DX: L97.312 Non-pressure chronic ulcer of right ankle with fat layer exposed (principal); L97.322 Non-pressure chronic ulcer of left ankle with fat layer exposed; D57.1 Sickle-cell disease without crisis; L97.522 Non-pressure chronic ulcer of other part of left foot with fat layer exposed; I87.8 Other specified disorders of veins; I74.3 Embolism and thrombosis of arteries of the lower extremities; K21.9 Gastro-esophageal reflux disease without esophagitis; G62.9 Polyneuropathy, unspecified; Z90.49 Acquired absence of other specified parts of digestive tract; Z79.899 Other long term (current) drug therapy
CPT/HCPCS: 29581

== ENCOUNTER 2021-10-19 10:21 | Outpatient (CLI) | payer MEDICAID | END 2021-10-19 10:22 | disposition home or self-care (01) | LOC: WOUND 10:21 | PROVIDERS: ATTEND Surgery | DX: L97.312 Non-pressure chronic ulcer of right ankle with fat layer exposed (principal); L97.322 Non-pressure chronic ulcer of left ankle with fat layer exposed; D57.1 Sickle-cell disease without crisis; L97.522 Non-pressure chronic ulcer of other part of left foot with fat layer exposed; I87.8 Other specified disorders of veins; I74.3 Embolism and thrombosis of arteries of the lower extremities; K21.9 Gastro-esophageal reflux disease without esophagitis; G62.9 Polyneuropathy, unspecified; Z90.49 Acquired absence of other specified parts of digestive tract; Z79.899 Other long term (current) drug therapy | CPT/HCPCS: 29581 ==

== ENCOUNTER 2021-10-26 10:06 | Outpatient (CLI) | payer MEDICAID ==
[2021-10-26] MEDS ORDERED: LIDOCAINE (4%) 40 MG/ML TOPICAL SOLN 50 ML BOTTLE TP ONE (10:25)
== END 2021-10-26 10:07 | disposition home or self-care (01) ==
LOC: WOUND 10:06
PROVIDERS: ATTEND Surgery
DX: L97.312 Non-pressure chronic ulcer of right ankle with fat layer exposed (principal); L97.322 Non-pressure chronic ulcer of left ankle with fat layer exposed; L97.522 Non-pressure chronic ulcer of other part of left foot with fat layer exposed; D57.1 Sickle-cell disease without crisis; I87.8 Other specified disorders of veins; I74.3 Embolism and thrombosis of arteries of the lower extremities; K21.9 Gastro-esophageal reflux disease without esophagitis; G62.9 Polyneuropathy, unspecified; Z90.49 Acquired absence of other specified parts of digestive tract; Z79.899 Other long term (current) drug therapy
CPT/HCPCS: 29581

== ENCOUNTER 2021-11-02 10:43 | Outpatient (CLI) | payer MEDICAID ==
[2021-11-02] MEDS ORDERED: LIDOCAINE (4%) 40 MG/ML TOPICAL SOLN 50 ML BOTTLE TP ONE (11:06)
== END 2021-11-02 10:44 | disposition home or self-care (01) ==
LOC: WOUND 10:43
PROVIDERS: ATTEND Surgery
DX: L97.312 Non-pressure chronic ulcer of right ankle with fat layer exposed (principal); L97.322 Non-pressure chronic ulcer of left ankle with fat layer exposed; D57.1 Sickle-cell disease without crisis; L97.522 Non-pressure chronic ulcer of other part of left foot with fat layer exposed; I87.8 Other specified disorders of veins; I74.3 Embolism and thrombosis of arteries of the lower extremities; K21.9 Gastro-esophageal reflux disease without esophagitis; G62.9 Polyneuropathy, unspecified; Z90.49 Acquired absence of other specified parts of digestive tract; Z79.899 Other long term (current) drug therapy
CPT/HCPCS: 29581

== ENCOUNTER 2021-11-09 10:59 | Outpatient (CLI) | payer MEDICAID ==
[2021-11-09] MEDS ORDERED: LIDOCAINE (4%) 40 MG/ML TOPICAL SOLN 50 ML BOTTLE TP ONE (12:00)
== END 2021-11-09 11:00 | disposition home or self-care (01) ==
LOC: WOUND 10:59
PROVIDERS: ATTEND Surgery
DX: L97.312 Non-pressure chronic ulcer of right ankle with fat layer exposed (principal); L97.322 Non-pressure chronic ulcer of left ankle with fat layer exposed; D57.1 Sickle-cell disease without crisis; L97.522 Non-pressure chronic ulcer of other part of left foot with fat layer exposed; I87.8 Other specified disorders of veins; I74.3 Embolism and thrombosis of arteries of the lower extremities; K21.9 Gastro-esophageal reflux disease without esophagitis; G62.9 Polyneuropathy, unspecified; Z90.49 Acquired absence of other specified parts of digestive tract; Z79.899 Other long term (current) drug therapy
CPT/HCPCS: 29581

== ENCOUNTER 2021-11-16 10:03 | Outpatient (CLI) | payer MEDICAID ==
[2021-11-16] MEDS ORDERED: LIDOCAINE (4%) 40 MG/ML TOPICAL SOLN 50 ML BOTTLE TP ONE (10:27)
== END 2021-11-16 10:04 | disposition home or self-care (01) ==
LOC: WOUND 10:03
PROVIDERS: ATTEND Surgery
DX: L97.312 Non-pressure chronic ulcer of right ankle with fat layer exposed (principal); L97.322 Non-pressure chronic ulcer of left ankle with fat layer exposed; D57.1 Sickle-cell disease without crisis; L97.522 Non-pressure chronic ulcer of other part of left foot with fat layer exposed; I87.8 Other specified disorders of veins; I74.3 Embolism and thrombosis of arteries of the lower extremities; K21.9 Gastro-esophageal reflux disease without esophagitis; G62.9 Polyneuropathy, unspecified; Z90.49 Acquired absence of other specified parts of digestive tract; Z79.899 Other long term (current) drug therapy

== ENCOUNTER 2021-12-16 11:00 | Outpatient (CLI) | payer MEDICAID ==
[2021-12-16] MEDS ORDERED: LIDOCAINE (4%) 40 MG/ML TOPICAL SOLN 50 ML BOTTLE TP SCH (13:39)
== END 2021-12-16 11:01 | disposition home or self-care (01) ==
LOC: WOUND 11:00
PROVIDERS: ATTEND Surgery
DX: L97.312 Non-pressure chronic ulcer of right ankle with fat layer exposed (principal); L97.322 Non-pressure chronic ulcer of left ankle with fat layer exposed; D57.1 Sickle-cell disease without crisis; L97.522 Non-pressure chronic ulcer of other part of left foot with fat layer exposed; I87.8 Other specified disorders of veins; I74.3 Embolism and thrombosis of arteries of the lower extremities; K21.9 Gastro-esophageal reflux disease without esophagitis; G62.9 Polyneuropathy, unspecified; Z90.49 Acquired absence of other specified parts of digestive tract; Z79.899 Other long term (current) drug therapy

== ENCOUNTER 2021-12-23 09:16 | Outpatient (CLI) | payer MEDICAID ==
[2021-12-23] MEDS ORDERED: LIDOCAINE (4%) 40 MG/ML TOPICAL SOLN 50 ML BOTTLE TP ONE (09:34)
== END 2021-12-23 09:17 | disposition home or self-care (01) ==
LOC: WOUND 09:16
PROVIDERS: ATTEND Surgery
DX: L97.312 Non-pressure chronic ulcer of right ankle with fat layer exposed (principal); L97.322 Non-pressure chronic ulcer of left ankle with fat layer exposed; D57.1 Sickle-cell disease without crisis; L97.522 Non-pressure chronic ulcer of other part of left foot with fat layer exposed; I87.8 Other specified disorders of veins; I74.3 Embolism and thrombosis of arteries of the lower extremities; K21.9 Gastro-esophageal reflux disease without esophagitis; G62.9 Polyneuropathy, unspecified; Z90.49 Acquired absence of other specified parts of digestive tract; Z79.899 Other long term (current) drug therapy
CPT/HCPCS: 29581

== ENCOUNTER 2021-12-30 10:01 | Outpatient (CLI) | payer MEDICAID ==
[2021-12-30] MEDS ORDERED: LIDOCAINE (4%) 40 MG/ML TOPICAL SOLN 50 ML BOTTLE TP ONE (11:00)
== END 2021-12-30 10:02 | disposition home or self-care (01) ==
LOC: WOUND 10:01
PROVIDERS: ATTEND Surgery
DX: L97.312 Non-pressure chronic ulcer of right ankle with fat layer exposed (principal); L97.322 Non-pressure chronic ulcer of left ankle with fat layer exposed; D57.1 Sickle-cell disease without crisis; L97.522 Non-pressure chronic ulcer of other part of left foot with fat layer exposed; I87.8 Other specified disorders of veins; I74.3 Embolism and thrombosis of arteries of the lower extremities; K21.9 Gastro-esophageal reflux disease without esophagitis; G62.9 Polyneuropathy, unspecified; Z90.49 Acquired absence of other specified parts of digestive tract; Z79.899 Other long term (current) drug therapy
CPT/HCPCS: 29581

== ENCOUNTER 2022-01-06 09:46 | Outpatient (CLI) | payer MEDICAID | END 2022-01-06 09:47 | disposition home or self-care (01) | LOC: WOUND 09:46 | PROVIDERS: ATTEND Surgery | DX: L97.312 Non-pressure chronic ulcer of right ankle with fat layer exposed (principal); L97.322 Non-pressure chronic ulcer of left ankle with fat layer exposed; D57.1 Sickle-cell disease without crisis; L97.522 Non-pressure chronic ulcer of other part of left foot with fat layer exposed; I87.8 Other specified disorders of veins; I74.3 Embolism and thrombosis of arteries of the lower extremities; K21.9 Gastro-esophageal reflux disease without esophagitis; G62.9 Polyneuropathy, unspecified; Z90.49 Acquired absence of other specified parts of digestive tract; Z79.899 Other long term (current) drug therapy ==

== ENCOUNTER 2022-01-13 09:39 | Outpatient (CLI) | payer MEDICAID ==
[2022-01-13] MEDS ORDERED: LIDOCAINE (4%) 40 MG/ML TOPICAL SOLN 50 ML BOTTLE TP ONE (10:00)
== END 2022-01-13 09:40 | disposition home or self-care (01) ==
LOC: WOUND 09:39
PROVIDERS: ATTEND Surgery
DX: L97.312 Non-pressure chronic ulcer of right ankle with fat layer exposed (principal); L97.322 Non-pressure chronic ulcer of left ankle with fat layer exposed; D57.1 Sickle-cell disease without crisis; L97.522 Non-pressure chronic ulcer of other part of left foot with fat layer exposed; I87.8 Other specified disorders of veins; I74.3 Embolism and thrombosis of arteries of the lower extremities; K21.9 Gastro-esophageal reflux disease without esophagitis; G62.9 Polyneuropathy, unspecified; Z90.49 Acquired absence of other specified parts of digestive tract; Z79.899 Other long term (current) drug therapy
CPT/HCPCS: 29581

== ENCOUNTER 2022-01-20 09:15 | Outpatient (CLI) | payer MEDICAID ==
[2022-01-20] MEDS ORDERED: SODIUM CHLORIDE 0.9% IRR 500 ML BOTTLE IR PRN (09:41)
[2022-01-20] MEDS ORDERED: LIDOCAINE (4%) 40 MG/ML TOPICAL SOLN 50 ML BOTTLE TP ONE (09:41)
== END 2022-01-20 09:16 | disposition home or self-care (01) ==
LOC: WOUND 09:15
PROVIDERS: ATTEND Surgery
DX: L97.312 Non-pressure chronic ulcer of right ankle with fat layer exposed (principal); L97.322 Non-pressure chronic ulcer of left ankle with fat layer exposed; D57.1 Sickle-cell disease without crisis; L97.522 Non-pressure chronic ulcer of other part of left foot with fat layer exposed; I87.8 Other specified disorders of veins; I74.3 Embolism and thrombosis of arteries of the lower extremities; K21.9 Gastro-esophageal reflux disease without esophagitis; G62.9 Polyneuropathy, unspecified; Z90.49 Acquired absence of other specified parts of digestive tract; Z79.899 Other long term (current) drug therapy
CPT/HCPCS: 29581

== ENCOUNTER 2022-01-27 09:42 | Outpatient (CLI) | payer MEDICAID ==
[2022-01-27] MEDS ORDERED: SODIUM CHLORIDE 0.9% IRR 500 ML BOTTLE IR PRN (09:48)
[2022-01-27] MEDS ORDERED: LIDOCAINE (4%) 40 MG/ML TOPICAL SOLN 50 ML BOTTLE TP ONE (09:48)
== END 2022-01-27 09:43 | disposition home or self-care (01) ==
LOC: WOUND 09:42
PROVIDERS: ATTEND Surgery
DX: L97.312 Non-pressure chronic ulcer of right ankle with fat layer exposed (principal); L97.322 Non-pressure chronic ulcer of left ankle with fat layer exposed; D57.1 Sickle-cell disease without crisis; L97.522 Non-pressure chronic ulcer of other part of left foot with fat layer exposed; I87.8 Other specified disorders of veins; I74.3 Embolism and thrombosis of arteries of the lower extremities; K21.9 Gastro-esophageal reflux disease without esophagitis; G62.9 Polyneuropathy, unspecified; Z90.49 Acquired absence of other specified parts of digestive tract; Z79.899 Other long term (current) drug therapy
CPT/HCPCS: 29581

== ENCOUNTER 2022-02-10 10:17 | Outpatient (CLI) | payer MEDICAID ==
[2022-02-10] MEDS ORDERED: LIDOCAINE (4%) 40 MG/ML TOPICAL SOLN 50 ML BOTTLE TP ONE (11:12)
== END 2022-02-10 10:18 | disposition home or self-care (01) ==
LOC: WOUND 10:17
PROVIDERS: ATTEND Surgery
DX: L97.312 Non-pressure chronic ulcer of right ankle with fat layer exposed (principal); L97.322 Non-pressure chronic ulcer of left ankle with fat layer exposed; D57.1 Sickle-cell disease without crisis; L97.522 Non-pressure chronic ulcer of other part of left foot with fat layer exposed; I87.8 Other specified disorders of veins; I74.3 Embolism and thrombosis of arteries of the lower extremities; K21.9 Gastro-esophageal reflux disease without esophagitis; G62.9 Polyneuropathy, unspecified; Z90.49 Acquired absence of other specified parts of digestive tract; Z79.899 Other long term (current) drug therapy
CPT/HCPCS: 29580

== ENCOUNTER 2022-02-16 08:45 | Outpatient (CLI) | payer MEDICAID | END 2022-02-16 08:46 | disposition home or self-care (01) | LOC: WOUND 08:45 | PROVIDERS: ATTEND Surgery | DX: L97.312 Non-pressure chronic ulcer of right ankle with fat layer exposed (principal); L97.322 Non-pressure chronic ulcer of left ankle with fat layer exposed; D57.1 Sickle-cell disease without crisis; L97.522 Non-pressure chronic ulcer of other part of left foot with fat layer exposed; I87.8 Other specified disorders of veins; I74.3 Embolism and thrombosis of arteries of the lower extremities; K21.9 Gastro-esophageal reflux disease without esophagitis; G62.9 Polyneuropathy, unspecified; Z90.49 Acquired absence of other specified parts of digestive tract; Z79.899 Other long term (current) drug therapy | CPT/HCPCS: 29580 ==

== ENCOUNTER 2022-02-24 10:45 | Outpatient (CLI) | payer MEDICAID ==
[2022-02-24] MEDS ORDERED: LIDOCAINE (4%) 40 MG/ML TOPICAL SOLN 50 ML BOTTLE TP SCH (11:00)
== END 2022-02-24 10:46 | disposition home or self-care (01) ==
LOC: WOUND 10:45
PROVIDERS: ATTEND Surgery
DX: L97.312 Non-pressure chronic ulcer of right ankle with fat layer exposed (principal); L97.322 Non-pressure chronic ulcer of left ankle with fat layer exposed; D57.1 Sickle-cell disease without crisis; L97.522 Non-pressure chronic ulcer of other part of left foot with fat layer exposed; I87.8 Other specified disorders of veins; I74.3 Embolism and thrombosis of arteries of the lower extremities; K21.9 Gastro-esophageal reflux disease without esophagitis; G62.9 Polyneuropathy, unspecified; Z90.49 Acquired absence of other specified parts of digestive tract; Z79.899 Other long term (current) drug therapy
CPT/HCPCS: 29581

== ENCOUNTER 2022-03-03 10:47 | Outpatient (CLI) | payer MEDICAID ==
[2022-03-03] MEDS ORDERED: LIDOCAINE (4%) 40 MG/ML TOPICAL SOLN 50 ML BOTTLE TP ONE (11:13)
== END 2022-03-03 10:48 | disposition home or self-care (01) ==
LOC: WOUND 10:47
PROVIDERS: ATTEND Surgery
DX: L97.312 Non-pressure chronic ulcer of right ankle with fat layer exposed (principal); L97.322 Non-pressure chronic ulcer of left ankle with fat layer exposed; D57.1 Sickle-cell disease without crisis; L97.522 Non-pressure chronic ulcer of other part of left foot with fat layer exposed; I87.8 Other specified disorders of veins; I74.3 Embolism and thrombosis of arteries of the lower extremities; K21.9 Gastro-esophageal reflux disease without esophagitis; G62.9 Polyneuropathy, unspecified; Z90.49 Acquired absence of other specified parts of digestive tract; Z79.899 Other long term (current) drug therapy
CPT/HCPCS: 29581

== ENCOUNTER 2022-03-10 13:11 | Outpatient (CLI) | payer MEDICAID ==
[2022-03-10] MEDS ORDERED: LIDOCAINE (4%) 40 MG/ML TOPICAL SOLN 50 ML BOTTLE TP ONE (14:00)
== END 2022-03-10 13:12 | disposition home or self-care (01) ==
LOC: WOUND 13:11
PROVIDERS: ATTEND Surgery
DX: L97.312 Non-pressure chronic ulcer of right ankle with fat layer exposed (principal); L97.322 Non-pressure chronic ulcer of left ankle with fat layer exposed; D57.1 Sickle-cell disease without crisis; L97.522 Non-pressure chronic ulcer of other part of left foot with fat layer exposed; I87.8 Other specified disorders of veins; I74.3 Embolism and thrombosis of arteries of the lower extremities; K21.9 Gastro-esophageal reflux disease without esophagitis; G62.9 Polyneuropathy, unspecified; Z90.49 Acquired absence of other specified parts of digestive tract; Z79.899 Other long term (current) drug therapy
CPT/HCPCS: 29581

== ENCOUNTER 2022-03-17 10:46 | Outpatient (CLI) | payer MEDICAID ==
[2022-03-17] MEDS ORDERED: LIDOCAINE (4%) 40 MG/ML TOPICAL SOLN 50 ML BOTTLE TP ONE (11:15)
== END 2022-03-17 10:47 | disposition home or self-care (01) ==
LOC: WOUND 10:46
PROVIDERS: ATTEND Surgery
DX: L97.312 Non-pressure chronic ulcer of right ankle with fat layer exposed (principal); L97.322 Non-pressure chronic ulcer of left ankle with fat layer exposed; D57.1 Sickle-cell disease without crisis; L97.522 Non-pressure chronic ulcer of other part of left foot with fat layer exposed; I87.8 Other specified disorders of veins; I74.3 Embolism and thrombosis of arteries of the lower extremities; K21.9 Gastro-esophageal reflux disease without esophagitis; G62.9 Polyneuropathy, unspecified; Z90.49 Acquired absence of other specified parts of digestive tract; Z79.899 Other long term (current) drug therapy
CPT/HCPCS: 29581

== ENCOUNTER 2022-03-24 11:42 | Outpatient (CLI) | payer MEDICAID ==
[2022-03-24] MEDS ORDERED: LIDOCAINE (4%) 40 MG/ML TOPICAL SOLN 50 ML BOTTLE TP ONE (11:49)
[2022-03-24] MEDS ORDERED: LIDOCAINE (4%) 40 MG/ML TOPICAL SOLN 50 ML BOTTLE TP NR (11:50)
== END 2022-03-24 11:43 | disposition home or self-care (01) ==
LOC: WOUND 11:42
PROVIDERS: ATTEND Surgery
DX: L97.312 Non-pressure chronic ulcer of right ankle with fat layer exposed (principal); L97.322 Non-pressure chronic ulcer of left ankle with fat layer exposed; D57.1 Sickle-cell disease without crisis; L97.522 Non-pressure chronic ulcer of other part of left foot with fat layer exposed; I87.8 Other specified disorders of veins; I74.3 Embolism and thrombosis of arteries of the lower extremities; K21.9 Gastro-esophageal reflux disease without esophagitis; G62.9 Polyneuropathy, unspecified; Z90.49 Acquired absence of other specified parts of digestive tract; Z79.899 Other long term (current) drug therapy

== ENCOUNTER 2022-03-31 10:45 | Outpatient (CLI) | payer MEDICAID ==
[2022-03-31] MEDS ORDERED: LIDOCAINE (4%) 40 MG/ML TOPICAL SOLN 50 ML BOTTLE TP ONE (11:00)
== END 2022-03-31 10:46 | disposition home or self-care (01) ==
LOC: WOUND 10:45
PROVIDERS: ATTEND Surgery
DX: L97.312 Non-pressure chronic ulcer of right ankle with fat layer exposed (principal); L97.322 Non-pressure chronic ulcer of left ankle with fat layer exposed; D57.1 Sickle-cell disease without crisis; L97.522 Non-pressure chronic ulcer of other part of left foot with fat layer exposed; I87.8 Other specified disorders of veins; I74.3 Embolism and thrombosis of arteries of the lower extremities; K21.9 Gastro-esophageal reflux disease without esophagitis; G62.9 Polyneuropathy, unspecified; Z90.49 Acquired absence of other specified parts of digestive tract; Z79.899 Other long term (current) drug therapy